=== PATIENT | male | born 1950 | race African-American/Black ===

== ENCOUNTER 2016-11-16 04:44 | Inpatient (IN) | payer MEDICAID, SELFPAY ==
[~2016-11-16] VITALS: Ht 170.2 cm; Wt 72.6 kg
[~2016-11-16 04:44] MED LIST: AZITHROMYCIN250 MG ORAL; NORCO 5-325 TA1 EACH ORAL
[2016-11-16] MEDS ORDERED: NKM (04:58)
--- NOTE | 2016-11-16 05:04 | Emergency Room Report ---
History of Present Illness General Chief Complaint: Chest Pain Source: Patient Present Illness HPI This is a 66-year-old male who is a smoker. He has no past medical history. He presents with right-sided chest pain. He woke up with it. Worse with a deep breath. Pain is mostly to the right side the back. No fever chills but no nausea no vomiting. Similar symptom about a year ago and was told he had pneumonia. Denies any other complaint. No exertional component. Allergies: Coded Allergies: NO KNOWN DRUG ALLERGIES (Unverified Allergy, Unknown, 10/15/13) Patient History Past Medical History: see triage record, old chart reviewed Past Surgical History: other Pertinent Family History: none Social History: Reports: smoking Immunizations: other Reviewed Nursing Documentation: PMH: Agreed, PSxH: Agreed Nursing Documentation-PMH Past Medical History: No Stated History Review of Systems Eye: Denies: eye pain, blurred vision ENT: Denies: ear pain, nose congestion, throat swelling Respiratory: Reports: cough, Denies: shortness of breath Cardiovascular: Reports: chest pain, Denies: palpitations Gastrointestinal: Denies: abdominal pain, diarrhea, nausea, vomiting Musculoskeletal: Denies: back pain, joint pain Skin: Denies: rash Neurological: Denies: headache, numbness Endocrine: Denies: increased thirst, increased urine Hematologic/Lymphatic: Denies: easy bruising All Other Systems: negative except mentioned in HPI Physical Exam Vital Signs Date Time Temp Pulse Resp B/P (MAP) Pulse Ox O2 Delivery O2 Flow Rate FiO2 11/16/16 04:55 76 16 129/86 97 Room Air vital normal Sp02 EP Interpretation: reviewed, normal General Appearance: well appearing, no apparent distress, alert Head: normocephalic, atraumatic Eyes: bilateral eye PERRL, bilateral eye EOMI ENT: hearing grossly normal, normal pharynx Neck: full range of motion, supple, no meningismus Respiratory: chest non-tender, normal breath sounds, rhonchi - Right lower lobe Cardiovascular #1: regular rate, rhythm, no murmur Gastrointestinal: normal bowel sounds, non tender, no mass, no organomegaly, no bruit, non-distended Musculoskeletal: back normal, gait/station normal, normal range of motion Psychiatric: mood/affect normal Skin: warm/dry Medical Decision Making Diagnostic Impression: Primary Impression: Pneumonia Qualified Codes: J18.1 - Lobar pneumonia, unspecified organism Additional Impression: Hemoptysis ER Course Patient presents with right-sided chest pain. Is very pleuritic in nature. While he is here, he is more coughing and hemoptysis. My main concern is a neoplastic process based on his smoking history. Could also be a PE. CT scan ordered. Results pending. I will sign this patient out to Dr. Morales for final disposition. Unfortunately, as the patient was getting CT scan it stopped working. The table was not moving. He did not get CAT scan. I gave patient antibiotics and put him in for admission. Once CTs working he will get a CAT scan to rule out neoplastic process. Discussed with Dr. Chase for admission. Lab Results Impression labs normal except for elevated d-dimer EKG Diagnostic Results EKG Time: 06:27 Rate: normal Rhythm: NSR ST Segments: other - T-wave inversion laterally Rhythm Strip Diag. Results Rhythm Strip Time: 06:28 EP Interpretation: yes Rate: 68 Rhythm: NSR, no PVC's Chest X-Ray Diagnostic Results Chest X-Ray Diagnostic Results : Chest X-Ray Ordered: Yes # of Views/Limited/Complete: 1 View Indication: Chest Pain EP Interpretation: Yes Interpretation: no consolidation, no effusion, no pneumothorax, other - Right lower lobe infiltrates Impression: Other - Right lower lobe infiltrate Interpreting ER Provider: Electronically signed by Parrish Thayer MD Last Vital Signs Date Time Temp Pulse Resp B/P (MAP) Pulse Ox O2 Delivery O2 Flow Rate FiO2 11/16/16 04:59 76 16 Room Air 11/16/16 04:55 129/86 97 Status: improved Disposition: ADMITTED INPATIENT Condition: Serious PARRISH THAYER M.D. Nov 16, 2016 05:04
[2016-11-16] MEDS ORDERED: Ketorolac 30mg Inj IV ONE (05:15)
[2016-11-16 05:22] LABS: EOSINOPHILS % (AUTO) 2.1 % (0.0-3.0); LYMPHOCYTES % (AUTO) 27.5 % (20.0-45.0); MEAN CORPUSCULAR HEMOGLOBIN 27.1 PG (27.0-31.0); MEAN CORPUSCULAR VOLUME 91 FL (80-99); MEAN PLATELET VOLUME 10.6 FL (6.5-10.1); MONOCYTES % (AUTO) 11.8 % (1.0-10.0); NEUTROPHILS % (AUTO) 57.6 % (45.0-75.0); PLATELET COUNT 128 K/UL (150-450); RED CELL DISTRIBUTION WIDTH 14.4 % (11.6-14.8); WHITE BLOOD COUNT 7.7 K/UL (4.8-10.8)
[2016-11-16 05:51] LABS: ALANINE AMINOTRANSFERASE 7 U/L (3-41); ALBUMIN/GLOBULIN RATIO 1.4 (1.0-2.7); ANION GAP 10 (5-15); ASPARTATE AMINO TRANSFERASE 18 U/L (5-40); CALCIUM 9.4 mg/dL (8.6-10.2); CARBON DIOXIDE 30 mEQ/L (20-30); CHLORIDE 101 mEQ/L (98-107); CREATININE 1.4 mg/dL (0.7-1.2); GLOMERULAR FILTRATION RATE > 60 mL/min (>60); HEMOLYSIS 0; SODIUM 141 mEQ/L (135-145); TOTAL PROTEIN 7.2 g/dL (6.6-8.7)
[2016-11-16 05:54] LABS: TROPONIN I < 0.30 ng/mL (<=0.30)
[2016-11-16 06:02] LABS: CKMB 1.7 ng/mL (< 6.7)
[2016-11-16 06:13] VITALS: BP 130/91
[2016-11-16 07:10] VITALS: BP 120/86
[2016-11-16] MEDS ORDERED: LORazepam Inj 2mg/ml 1ml IV PRN (08:15)
[2016-11-16] MEDS ORDERED: DuoNeb 0.5-3(2.5)mg/3ml neb HHN PRN (08:15)
[2016-11-16] MEDS ORDERED: Morphine Sulfate 4mg/ml Inj IVP PRN (08:15)
[2016-11-16] MEDS ORDERED: Miralax 17gm pkt ORAL PRN (08:15)
--- NOTE | 2016-11-16 08:33 | Diagnostic Imaging Report ---
Indication: Chest pain Comparison: 7.514 A single view chest radiograph was obtained. Findings: Interstitial edema suspected with cardiomegaly. No definite pleural effusion seen. Impression: Interstitial edema
--- NOTE | 2016-11-16 08:49 | Infectious Diseases Prog Note ---
Assessment/Plan Problems: (1) Pneumonia Assessment & Plan: continue cefepime and vancomycin, need CT chest to rule out lung mass or abscess (2) Hemoptysis Assessment & Plan: rule out lung malignancy , needs CT chest for further eval, pulmonary is following (3) Chest pain Assessment & Plan: due to the above , rule out ACS, recommend troponin, monitor to rule out PA, and cardiac consult Subjective Allergies: Coded Allergies: NO KNOWN DRUG ALLERGIES (Unverified Allergy, Unknown, 10/15/13) Objective Vital Signs Last 24 Hour Vital Signs Date Time Temp Pulse Resp B/P (MAP) Pulse Ox O2 Delivery O2 Flow Rate FiO2 11/16/16 07:10 66 13 Room Air 11/16/16 07:10 98.7 66 13 120/86 99 Room Air 11/16/16 06:13 99.1 60 16 130/91 99 Room Air 11/16/16 04:59 76 16 Room Air 11/16/16 04:55 76 16 129/86 97 Room Air Height (Feet): 5 Height (Inches): 7.00 Weight (Pounds): 160 Laboratory Tests Test 11/16/16 05:10 11/16/16 06:45 White Blood Count 7.7 K/UL (4.8-10.8) Red Blood Count 5.40 M/UL (4.70-6.10) Hemoglobin 14.6 G/DL (14.2-18.0) Hematocrit 48.9 % (42.0-52.0) Mean Corpuscular Volume 91 FL (80-99) Mean Corpuscular Hemoglobin 27.1 PG (27.0-31.0) Mean Corpuscular Hemoglobin Concent 30.0 G/DL (32.0-36.0) L Red Cell Distribution Width 14.4 % (11.6-14.8) Platelet Count 128 K/UL (150-450) L Mean Platelet Volume 10.6 FL (6.5-10.1) H Neutrophils (%) (Auto) 57.6 % (45.0-75.0) Lymphocytes (%) (Auto) 27.5 % (20.0-45.0) Monocytes (%) (Auto) 11.8 % (1.0-10.0) H Eosinophils (%) (Auto) 2.1 % (0.0-3.0) Basophils (%) (Auto) 1.0 % (0.0-2.0) D-Dimer 3943 ng/mL (<500) H Sodium Level 141 mEQ/L (135-145) Potassium Level 4.0 mEQ/L (3.4-4.9) Chloride Level 101 mEQ/L (98-107) Carbon Dioxide Level 30 mEQ/L (20-30) Anion Gap 10 (5-15) Blood Urea Nitrogen 8 mg/dL (7-23) Creatinine 1.4 mg/dL (0.7-1.2) H Estimat Glomerular Filtration Rate > 60 mL/min (>60) Glucose Level 110 mg/dL (74-106) H Calcium Level 9.4 mg/dL (8.6-10.2) Total Bilirubin 1.0 mg/dL (0.0-1.2) Aspartate Amino Transf (AST/SGOT) 18 U/L (5-40) Alanine Aminotransferase (ALT/SGPT) 7 U/L (3-41) Alkaline Phosphatase 65 U/L (40-129) Total Creatine Kinase 70 U/L (38-174) Creatine Kinase MB 1.7 ng/mL (< 6.7) Creatine Kinase MB Relative Index 2.4 Troponin I < 0.30 ng/mL (<=0.30) Total Protein 7.2 g/dL (6.6-8.7) Albumin 4.2 g/dL (3.5-5.2) Globulin 3.0 g/dL Albumin/Globulin Ratio 1.4 (1.0-2.7) Lactic Acid Level 1.20 mmol/L (0.66-2.22) Current Medications Medications (Trade) Dose Ordered Sig/Ata Route PRN Reason Start Time Stop Time Status Last Admin Dose Admin Acetaminophen (Tylenol) 650 mg Q4H PRN ORAL FEVER 11/16/16 08:15 12/16/16 08:14 UNV Albuterol/ Ipratropium (DuoNeb 0.5-3(2.5)mg/3ml) 3 ml EVERY 4 HOURS PRN HHN Shortness of Breath 11/16/16 08:15 11/21/16 08:14 UNV Cefepime HCl 2 gm/ Dextrose 110 ml @ 220 mls/hr EVERY 12 HOURS IV 11/16/16 09:00 11/23/16 08:59 UNV Dextrose (Dextrose 50%) STAT PRN IV Hypoglycemia 11/16/16 08:15 12/16/16 08:14 UNV Lorazepam (Ativan 2mg/ml 1ml) 2 mg EVERY 2 HOURS PRN IV For Anxiety 11/16/16 08:15 11/23/16 08:14 UNV Morphine Sulfate (Morphine Sulfate) 4 mg EVERY 4 HOURS PRN IVP Severe Pain (Pain Scale 7-10) 11/16/16 08:15 11/23/16 08:14 UNV Ondansetron HCl (Zofran) 4 mg Q6H PRN IVP Nausea & Vomiting 11/16/16 08:15 12/16/16 08:14 UNV Polyethylene Glycol (Miralax) 17 gm DAILYPRN PRN ORAL Constipation 11/16/16 08:15 12/16/16 08:14 UNV Sodium Chloride 1,000 ml @ 50 mls/hr Q20H IV 11/16/16 22:50 12/16/16 22:49 UNV Vancomycin HCl 1 gm/Dextrose 275 ml @ 183.3 mls/ hr Q24H IV 11/16/16 23:00 11/21/16 22:59 UNV Herman Ta M.D. Nov 16, 2016 08:49
[2016-11-16 10:02] VITALS: BP 138/97
--- NOTE | 2016-11-16 11:24 | Diagnostic Imaging Report ---
Indication:Elevated Bun and Creatinine. Technique: Grayscale and duplex Doppler imaging of the kidneys performed. Comparison: None Findings: The size, contour, and echogenicity of both kidneys are within normal limits. There is no hydronephrosis. The IVC and urinary bladder are unremarkable. Right kidney 9.6 CM. Left kidney 10.5 CM. Prostate volume is approximately 30 cc. Impression: Negative ultrasound of the kidneys. Mild prostate hypertrophy
[2016-11-16 12:00] VITALS: BP 142/95
[2016-11-16] MEDS: Vancomycin 1 GM in D5W 275 ML IVPB SCH ×2 (12:24→23:43)
--- NOTE | 2016-11-16 12:26 | Consultation ---
History of Present Illness General Date patient seen: Nov 16, 2016 Time patient seen: 11:00 Chief Complaint: Chest Pain Referring physician: dr Chase Reason for Consultation: PNA Present Illness HPI 66-y/old male, current smoker 1 pack a day, presented with right-sided chest pain. pain located laterally and sometimes radiates to the back, worse with deep breath. denied fever, chills admits to dry cough, blood tinged sputum this am patient had similar symptom about a year ago and was told he had pneumonia Workup in ED revealed no leukocytosis VSS BUN/cerat-8/1.4 CXR + CM, interstitial edema, possible RLL infiltrate patient was admitted for further management Allergies: Coded Allergies: NO KNOWN DRUG ALLERGIES (Unverified Allergy, Unknown, 10/15/13) Medication History Scheduled Azithromycin* (Zithromax*), 250 MG ORAL DAILY No Known Medications* (NKM - No Known Medications*), 0 ., (Reported) Scheduled PRN Hydrocodone Bit/Acetaminophen 5-325* ([place] 5-325*), 1 TAB ORAL Q6H PRN for For Pain Patient History History Provided By: Patient Healthcare decision maker Resuscitation status Advanced Directive on File Past Medical/Surgical History Past Medical/Surgical History: (1) Pneumonia Review of Systems Constitutional: Reports: weakness Eye: Reports: no symptoms ENT: Reports: no symptoms Respiratory: Reports: see HPI Cardiovascular: Reports: no symptoms Gastrointestinal: Reports: no symptoms Genitourinary: Reports: no symptoms Skin: Reports: no symptoms Psychiatric: Reports: no symptoms Neurological: Reports: no symptoms Endocrine: Reports: no symptoms Hematologic/Lymphatic: Reports: no symptoms Physical Exam General Appearance: no apparent distress, alert - A/A/O x 4 Lines, tubes and drains: peripheral HEENT: normocephalic, atraumatic, anicteric, mucous membranes moist, PERRL Neck: normal alignment, supple Respiratory/Chest: lungs clear - with moderate air exchange Cardiovascular/Chest: normal rate, regular rhythm, no JVD Abdomen: non tender, soft Extremities: normal range of motion, non-tender, no calf tenderness, normal capillary refill Skin Exam: warm/dry Neurologic: no motor/sensory deficits, alert, oriented x 3, normal mood/affect Musculoskeletal: normal muscle bulk Last 24 Hour Vital Signs Date Time Temp Pulse Resp B/P (MAP) Pulse Ox O2 Delivery O2 Flow Rate FiO2 8/26/17 12:00 97.0 77 20 142/95 99 Room Air 11/16/16 10:02 97.9 67 18 138/97 94 Room Air 11/16/16 09:24 60 19 135/87 100 Room Air 11/16/16 07:10 66 13 Room Air 11/16/16 07:10 98.7 66 13 120/86 99 Room Air 11/16/16 06:13 99.1 60 16 130/91 99 Room Air 11/16/16 04:59 76 16 Room Air 11/16/16 04:55 76 16 129/86 97 Room Air Intake and Output 11/16/16 11/17/16 19:00 07:00 Intake Total 150 ml Balance 150 ml Intake Oral 0 ml IV Total 150 ml Laboratory Tests Test 11/16/16 05:10 11/16/16 06:45 White Blood Count 7.7 K/UL (4.8-10.8) Red Blood Count 5.40 M/UL (4.70-6.10) Hemoglobin 14.6 G/DL (14.2-18.0) Hematocrit 48.9 % (42.0-52.0) Mean Corpuscular Volume 91 FL (80-99) Mean Corpuscular Hemoglobin 27.1 PG (27.0-31.0) Mean Corpuscular Hemoglobin Concent 30.0 G/DL (32.0-36.0) L Red Cell Distribution Width 14.4 % (11.6-14.8) Platelet Count 128 K/UL (150-450) L Mean Platelet Volume 10.6 FL (6.5-10.1) H Neutrophils (%) (Auto) 57.6 % (45.0-75.0) Lymphocytes (%) (Auto) 27.5 % (20.0-45.0) Monocytes (%) (Auto) 11.8 % (1.0-10.0) H Eosinophils (%) (Auto) 2.1 % (0.0-3.0) Basophils (%) (Auto) 1.0 % (0.0-2.0) D-Dimer 3943 ng/mL (<500) H Sodium Level 141 mEQ/L (135-145) Potassium Level 4.0 mEQ/L (3.4-4.9) Chloride Level 101 mEQ/L (98-107) Carbon Dioxide Level 30 mEQ/L (20-30) Anion Gap 10 (5-15) Blood Urea Nitrogen 8 mg/dL (7-23) Creatinine 1.4 mg/dL (0.7-1.2) H Estimat Glomerular Filtration Rate > 60 mL/min (>60) Glucose Level 110 mg/dL (74-106) H Calcium Level 9.4 mg/dL (8.6-10.2) Total Bilirubin 1.0 mg/dL (0.0-1.2) Aspartate Amino Transf (AST/SGOT) 18 U/L (5-40) Alanine Aminotransferase (ALT/SGPT) 7 U/L (3-41) Alkaline Phosphatase 65 U/L (40-129) Total Creatine Kinase 70 U/L (38-174) Creatine Kinase MB 1.7 ng/mL (< 6.7) Creatine Kinase MB Relative Index 2.4 Troponin I < 0.30 ng/mL (<=0.30) Total Protein 7.2 g/dL (6.6-8.7) Albumin 4.2 g/dL (3.5-5.2) Globulin 3.0 g/dL Albumin/Globulin Ratio 1.4 (1.0-2.7) Lactic Acid Level 1.20 mmol/L (0.66-2.22) Height (Feet): 5 Height (Inches): 7.00 Weight (Pounds): 160 Medications Current Medications Medications (Trade) Dose Ordered Sig/Taa Route PRN Reason Start Time Stop Time Status Last Admin Dose Admin Acetaminophen (Tylenol) 650 mg Q4H PRN ORAL FEVER 11/16/16 08:15 12/16/16 08:14 Albuterol/ Ipratropium (DuoNeb 0.5-3(2.5)mg/3ml) 3 ml EVERY 4 HOURS PRN HHN Shortness of Breath 11/16/16 08:15 11/21/16 08:14 Cefepime HCl 2 gm/ Dextrose 110 ml @ 220 mls/hr Q12HR IV 11/16/16 10:30 11/23/16 10:29 Dextrose (Dextrose 50%) STAT PRN IV Hypoglycemia 11/16/16 08:15 12/16/16 08:14 Lorazepam (Ativan 2mg/ml 1ml) 2 mg EVERY 2 HOURS PRN IV For Anxiety 11/16/16 08:15 11/23/16 08:14 Morphine Sulfate (Morphine Sulfate) 4 mg EVERY 4 HOURS PRN IVP Severe Pain (Pain Scale 7-10) 11/16/16 08:15 11/23/16 08:14 Ondansetron HCl (Zofran) 4 mg Q6H PRN IVP Nausea & Vomiting 11/16/16 08:15 12/16/16 08:14 Polyethylene Glycol (Miralax) 17 gm DAILYPRN PRN ORAL Constipation 11/16/16 08:15 12/16/16 08:14 Sodium Chloride 1,000 ml @ 50 mls/hr Q20H IV 11/16/16 10:00 12/16/16 09:59 11/16/16 12:12 Vancomycin HCl (Vanco rx to dose) 1 ea DAILY PRN MISC RX TO DOSE 11/16/16 10:00 12/16/16 09:59 Vancomycin HCl 1 gm/Dextrose 275 ml @ 183.3 mls/ hr Q12H IVPB 11/16/16 11:00 11/21/16 10:59 11/16/16 12:24 Assessment/Plan Assessment/Plan ASSESSMENT pleuritic chest pain PNA hemoptysis current smoker r/o malignancy PLAN OF CARE MS floor O2 prn to keep sat above 92% pulmonary toilet empiric abx fup with cx sputum cx if able CT chest r/o malignancy a/tussive prn declined Nicotine patch 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
[2016-11-16] MEDS: Cefepime HCl 2 GM in D5W 110 ML IV SCH ×2 (13:30→21:06)
[2016-11-16 16:00] VITALS: BP 111/74
[2016-11-16] MEDS ORDERED: 1/2 NS 1000ml IV ONE (16:23)
[2016-11-16] MEDS ORDERED: Tubing IV Secondary IV ONE (16:23)
[2016-11-16 20:00] VITALS: BP 104/77
[2016-11-16] MEDS: Heparin 5000 units/ml inj SUBQ SCH (21:00)
--- NOTE | 2016-11-16 22:00 | History and Physical Report ---
DATE OF ADMISSION: 11/16/2016 TIME OF EVALUATION: At 9 a.m. CONSULTANTS: 1. Kvng Gonzalez M.D. 2. Dr. Mayo. 3. Sam Bauer M.D. CHIEF COMPLAINT: Lung pain, shortness of breath, and coughing blood. BRIEF HISTORY: This is a 66-year-old male, who lives at home, became tired over the last couple of days and slightly short of breath. This morning, he coughed up a little bit of blood, came into [facility] and diagnosed with right lower lobe pneumonia, sepsis, and hematemesis and is being admitted shortly for further treatment. Currently, calm in bed in the ER. Currently, no complaints. PAST MEDICAL HISTORY: Nothing. PAST SURGICAL HISTORY: Nothing. MEDICATIONS: Vancomycin, cefepime, albuterol, morphine, MiraLAX, Zofran, Ativan, dextrose, levofloxacin, and ketorolac. ALLERGIES: Denies. SOCIAL HISTORY: Positive smoke. Positive alcohol. No intravenous drug abuse. FAMILY HISTORY: Noncontributory. REVIEW OF SYSTEMS: No chest pain. Slight shortness of breath. Slight nausea. No vomiting or diarrhea. PHYSICAL EXAMINATION: GENERAL: Calm in bed, alert and oriented x3, in no acute distress. VITAL SIGNS: Temperature 98 degrees, pulse 66, respirations 13, and blood pressure 120/86. CARDIOVASCULAR: No murmur. LUNGS: Distant and clear. ABDOMEN: Bowel sounds are positive. Soft, nontender, and nondistended. EXTREMITIES: No cyanosis, clubbing, or edema. LABORATORY DATA: Platelets 128,000, otherwise CBC is normal. Creatinine 1.4 and glucose 110, otherwise CMP is normal. Troponin is less than 0.3. D-dimer is 3943. ASSESSMENT: 1. Right lower lobe pneumonia. 2. Sepsis. 3. Hematemesis. PLAN: 1. Continue premedications. 2. O2 and pulmonary treatment. 3. Antibiotics per Infectious Diseases. 4. OT, PT, and dietary evaluation. 5. CBC and BMP in the morning. 6. Resume home medications. 7. Dr. Gonzalez, Dr. Mayo, and Dr. Bauer to consult. Carlos Chase D.O. DR: RAFFI JOB#: [id number] CC:
[2016-11-17] VITALS: BP 115/76
[2016-11-17 04:00] VITALS: BP 97/74
--- NOTE | 2016-11-17 06:49 | General Progress Note ---
Assessment/Plan Problem List: (1) Pneumonia ICD Codes: J18.9 - Pneumonia, unspecified organism SNOMED: 814386651 (2) Hemoptysis ICD Codes: R04.2 - Hemoptysis SNOMED: 31616475 Status: stable, progressing, tolerating diet Assessment/Plan o2 pulm tx abx ot pt diet cbc bmp am Subjective Constitutional: Reports: weakness Allergies: Coded Allergies: NO KNOWN DRUG ALLERGIES (Unverified Allergy, Unknown, 10/15/13) All Systems: reviewed and negative except above Subjective sleepy calm in bed Objective Last 24 Hour Vital Signs Date Time Temp Pulse Resp B/P (MAP) Pulse Ox O2 Delivery O2 Flow Rate FiO2 11/17/16 04:00 99.0 70 19 97/74 94 Room Air 11/17/16 00:00 99.0 96 19 115/76 96 Room Air 11/16/16 20:00 99.1 74 18 104/77 97 Room Air 11/16/16 16:00 98.2 61 17 111/74 94 Room Air 11/16/16 12:00 97.0 77 20 142/95 99 Room Air 11/16/16 10:02 97.9 67 18 138/97 94 Room Air 11/16/16 09:24 60 19 135/87 100 Room Air 11/16/16 07:10 66 13 Room Air 11/16/16 07:10 98.7 66 13 120/86 99 Room Air Height (Feet): 5 Height (Inches): 7.00 Weight (Pounds): 160 General Appearance: lethargic EENT: normal ENT inspection Neck: normal alignment Cardiovascular: normal peripheral pulses, normal rate, regular rhythm Respiratory/Chest: chest wall non-tender, lungs clear, decreased breath sounds Abdomen: normal bowel sounds, non tender, soft Extremities: normal inspection Edema: no edema noted Arm (L), no edema noted Arm (R), no edema noted Leg (L), no edema noted Leg (R), no edema noted Pedal (L), no edema noted Pedal (R), no edema noted Generalized Neurologic: motor weakness Skin: normal pigmentation, warm/dry DARRYL DAMON Nov 17, 2016 06:49
[2016-11-17 07:38] LABS: BASOPHILS % (AUTO) 0.6 % (0.0-2.0); EOSINOPHILS % (AUTO) 1.3 % (0.0-3.0); MEAN CORPUSCULAR HGB CONC 29.9 G/DL (32.0-36.0); MEAN CORPUSCULAR VOLUME 91 FL (80-99); MEAN PLATELET VOLUME 10.7 FL (6.5-10.1); MONOCYTES % (AUTO) 12.8 % (1.0-10.0); NEUTROPHILS % (AUTO) 71.3 % (45.0-75.0); PLATELET COUNT 122 K/UL (150-450); RED BLOOD COUNT 4.81 M/UL (4.70-6.10); RED CELL DISTRIBUTION WIDTH 14.3 % (11.6-14.8); WHITE BLOOD COUNT 7.7 K/UL (4.8-10.8)
[2016-11-17 08:00] VITALS: BP 107/79
[2016-11-17 08:09] LABS: ANION GAP 13 (5-15); CALCIUM 8.8 mg/dL (8.6-10.2); CARBON DIOXIDE 26 mEQ/L (20-30); CHLORIDE 101 mEQ/L (98-107); CREATININE 1.4 mg/dL (0.7-1.2); GLOMERULAR FILTRATION RATE > 60 mL/min (>60); HEMOLYSIS 4; SODIUM 140 mEQ/L (135-145)
[2016-11-17 08:13] LABS: ANION GAP 14 (5-15); CALCIUM 8.7 mg/dL (8.6-10.2); CARBON DIOXIDE 28 mEQ/L (20-30); CHLORIDE 99 mEQ/L (98-107); CREATININE 1.3 mg/dL (0.7-1.2); GLOMERULAR FILTRATION RATE > 60 mL/min (>60); HEMOLYSIS 6; PHOSPHORUS 3.1 mg/dL (2.5-4.8); POTASSIUM 4.2 mEQ/L (3.4-4.9); SODIUM 141 mEQ/L (135-145)
[2016-11-17] MEDS: Cefepime HCl 2 GM in D5W 110 ML IV SCH ×2 (08:17→20:22)
[2016-11-17] MEDS: Heparin 5000 units/ml inj SUBQ SCH ×2 (09:00→20:02)
--- NOTE | 2016-11-17 09:00 | Consultation ---
DATE OF CONSULTATION: INFECTIOUS DISEASES CONSULTATION REQUESTING PHYSICIAN: Carlos Chase D.O. REASON FOR CONSULTATION: Pneumonia, recommendation for antibiotics treatment. HISTORY OF PRESENT ILLNESS: The patient is a 66-year-old male with past medical history of pneumonia mainly and tobacco abuse who has been smoker for almost 30 years, one packet every four days presented to the hospital with right side chest pain and muscle spasm associated with productive cough and sometimes tinged with blood. The patient had mild shortness of breath. His pain mainly localized on the right side of his chest and back. He has been coughing dry at the beginning, but today he saw some blood in his sputum so he was sent to the emergency room for evaluation and management. The patient had no fever or chills. No recent travel or sick contacts. He never had any blood clot in the past. Denied any history of TB or any TB exposure before. The patient had similar symptoms two years ago and he had pneumonia and he was treated for it. Attempt to get CT scan was not successful. The patient was admitted to the hospital, started on IV antibiotics, and I was consulted by the primary provider for antibiotics treatment and further management. PAST MEDICAL HISTORY: Significant for pneumonia and tobacco abuse. PAST SURGICAL HISTORY: Negative. MEDICATIONS: The patient currently on vancomycin and cefepime. ALLERGIES: He has no known drug allergy. SOCIAL HISTORY: He smoked one packet every four days. Denies using any alcohol or drugs. FAMILY HISTORY: Negative. REVIEW OF SYSTEMS: A 12-point of system reviewed were all negative. PHYSICAL EXAMINATION: GENERAL: A middle-aged male, up in bed, awake, alert, comfortable, not in distress. VITAL SIGNS: Temperature 97 degrees, pulse 77, respirations 20, blood pressure 142/95, and saturation 99% on room air. HEENT: Normocephalic and atraumatic. Pupils are reactive to light. NECK: Supple. CARDIOVASCULAR: Regular rate and rhythm. LUNGS: He had diminished breathing sound at the bases with crackles. No wheezing or rhonchi. ABDOMEN: Soft, nontender, and nondistended. Positive bowel sounds. No hepatosplenomegaly or ascites. EXTREMITIES: No edema or cyanosis. LABORATORY DATA: Laboratory showed BUN of 8 and creatinine of 1.4. White count of 7.7, hemoglobin of 14.6, and platelet count of 128,000. RADIOLOGY: Chest x-ray on admission showed interstitial edema. Ultrasound of the kidneys showed negative result. ASSESSMENT AND RECOMMENDATIONS: 1. Pneumonia, community-acquired. Continue vancomycin and cefepime. Need CT scan of the chest to rule out lung mass or pulmonary embolism. Customer Advocate is following. 2. Hemoptysis, rule out lung malignancy, being smoker for many years. Need CT of chest to rule out lung mass or tumor. 3. Chest pain, suspect due to the above, rule out acute coronary syndrome. Recommend troponin monitor and to rule out myocardial infarction. Consult Cardiology as needed. Herman Ta M.D. DR: DEBRA JOB#: [id number] CC:
--- NOTE | 2016-11-17 09:15 | Consultation ---
DATE OF CONSULTATION: 11/16/2016 GASTROENTEROLOGY CONSULTATION CHIEF COMPLAINT: I was asked to see this patient for evaluation of hemoptysis. HISTORY OF PRESENT ILLNESS: The patient is a 66-year-old man, who came into the emergency room due to hemoptysis. He also had some right-sided flank pain. He feels better now however and has no further pain. In the emergency room, he mentioned right-sided chest pain, but on my examination, he pointed to his right flank. He has never had an endoscopy or colonoscopy in the past. PAST MEDICAL HISTORY: Otherwise negative. MEDICATIONS: None. ALLERGIES: None. SOCIAL HISTORY: The patient does report smoking. FAMILY HISTORY: Noncontributory. REVIEW OF SYSTEMS: Otherwise, negative. PHYSICAL EXAMINATION: HEENT: Normocephalic and atraumatic. NECK: Supple. CHEST: Clear to auscultation. CARDIOVASCULAR: Revealed regular rate. ABDOMEN: Soft. EXTREMITIES: Revealed no edema. LABORATORY DATA: Noted. ASSESSMENT: This patient presents with a chief complaint of hemoptysis. He had some right-sided torso pain, which has now improved. The patient should be seen by the Pulmonary services for evaluation of his hemoptysis. I have advised the patient that he should undergo a screening colonoscopy, which can be done as an outpatient on an elective basis. RECOMMENDATIONS: Per above discussion and per orders written in the chart. Thank you for asking me to participate in the care of this patient. Jayesh Koch M.D. DR: RAYNA JOB#: [id number] CC:
[2016-11-17] MEDS: Vancomycin 1 GM in D5W 275 ML IVPB SCH ×3 (11:17→22:26)
[2016-11-17 12:00] VITALS: BP 122/88
--- NOTE | 2016-11-17 14:50 | Pulmonology Progress Note ---
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 No actual report was upload in computer ; neither me, nor my supervising physciian did not receive any call from radiology regarding this alarming finding. , In fact, still no actual report in computer this am on 11/18 at 0800 am patient started on heparin drip. Heme eval consulted, Repeated D dimer elevated. Awaiting final report of CTA. VQ scan pending as ordered by my supervising physician . patient clinical exam on 11/17/ in am ( during my coverage frp dr Gonzalez) was unremarkable: no tachycardia, no tachypnea, no chest pain, no anxiety, no respiratory distress, no hemoptysis. case discussed and evaluated by supervising physician Subjective Allergies: Coded Allergies: NO KNOWN DRUG ALLERGIES (Unverified Allergy, Unknown, 10/15/13) Subjective still right sided intermittent ( with deep breath) lateral chest pain no SOB, no fevers, no leukocytosis no further episodes of hemoptysis Objective Last 24 Hour Vital Signs Date Time Temp Pulse Resp B/P (MAP) Pulse Ox O2 Delivery O2 Flow Rate FiO2 11/17/16 12:00 97.2 83 20 122/88 95 Room Air 11/17/16 08:00 98.2 77 20 107/79 90 Room Air 11/17/16 07:04 77 18 Room Air 11/17/16 04:00 99.0 70 19 97/74 94 Room Air 11/17/16 00:00 99.0 96 19 115/76 96 Room Air 11/16/16 20:00 99.1 74 18 104/77 97 Room Air 11/16/16 16:00 98.2 61 17 111/74 94 Room Air Objective General Appearance: no apparent distress, alert - A/A/O x 4 Lines, tubes and drains: peripheral HEENT: normocephalic, atraumatic, anicteric, mucous membranes moist, PERRL Neck: normal alignment, supple Respiratory/Chest: lungs clear - with moderate air exchange Cardiovascular/Chest: normal rate, regular rhythm, no JVD Abdomen: non tender, soft Extremities: normal range of motion, non-tender, no calf tenderness, normal capillary refill Skin Exam: warm/dry Neurologic: no motor/sensory deficits, alert, oriented x 3, normal mood/affect Musculoskeletal: normal muscle bulk Laboratory Tests 11/17/16 05:15: White Blood Count 7.7, Red Blood Count 4.81, Hemoglobin 13.0L, Hematocrit 43.5, Mean Corpuscular Volume 91, Mean Corpuscular Hemoglobin 27.0, Mean Corpuscular Hemoglobin Concent 29.9L, Red Cell Distribution Width 14.3, Platelet Count 122L , Mean Platelet Volume 10.7H, Neutrophils (%) (Auto) 71.3, Lymphocytes (%) (Auto ) 14.0L, Monocytes (%) (Auto) 12.8H, Eosinophils (%) (Auto) 1.3, Basophils (%) ( Auto) 0.6, Sodium Level 140, Potassium Level 4.0, Chloride Level 101, Carbon Dioxide Level 26, Anion Gap 13, Blood Urea Nitrogen 11, Creatinine 1.4H, Estimat Glomerular Filtration Rate > 60, Glucose Level 86, Calcium Level 8.8, Phosphorus Level 3.1, Albumin 3.4L 11/17/16 10:00: Vancomycin Level Trough 17.8H Current Medications Medications (Trade) Dose Ordered Sig/Ata Route PRN Reason Start Time Stop Time Status Last Admin Dose Admin Acetaminophen (Tylenol) 650 mg Q4H PRN ORAL FEVER 11/16/16 08:15 12/16/16 08:14 Albuterol/ Ipratropium (DuoNeb 0.5-3(2.5)mg/3ml) 3 ml EVERY 4 HOURS PRN HHN Shortness of Breath 11/16/16 08:15 11/21/16 08:14 Cefepime HCl 2 gm/ Dextrose 110 ml @ 220 mls/hr Q12HR IV 11/16/16 10:30 11/23/16 10:29 11/17/16 08:17 Dextrose (Dextrose 50%) STAT PRN IV Hypoglycemia 11/16/16 08:15 12/16/16 08:14 Heparin Sodium (Porcine) (Heparin 5000 units/ml) 5,000 units EVERY 12 HOURS SUBQ 11/16/16 21:00 12/16/16 20:59 Lorazepam (Ativan 2mg/ml 1ml) 2 mg EVERY 2 HOURS PRN IV For Anxiety 11/16/16 08:15 11/23/16 08:14 Morphine Sulfate (Morphine Sulfate) 4 mg EVERY 4 HOURS PRN IVP Severe Pain (Pain Scale 7-10) 11/16/16 08:15 11/23/16 08:14 11/16/16 18:10 Ondansetron HCl (Zofran) 4 mg Q6H PRN IVP Nausea & Vomiting 11/16/16 08:15 12/16/16 08:14 Polyethylene Glycol (Miralax) 17 gm DAILYPRN PRN ORAL Constipation 11/16/16 08:15 12/16/16 08:14 Sodium Chloride 1,000 ml @ 50 mls/hr Q20H IV 11/16/16 10:00 12/16/16 09:59 11/17/16 11:17 Vancomycin HCl (Vanco rx to dose) 1 ea DAILY PRN MISC RX TO DOSE 11/16/16 10:00 12/16/16 09:59 Vancomycin HCl 1 gm/Dextrose 275 ml @ 183.3 mls/ hr Q12H IVPB 11/16/16 11:00 11/21/16 10:59 11/17/16 11:17 Constance West NP ([facility]te[facility]) Nov 17, 2016 14:50
--- NOTE | 2016-11-17 15:19 | General Progress Note ---
Assessment/Plan Assessment/Plan Assessment cp PNA/Hemoptysis Recommendations Pulmonary w/u follow labs and symptoms Subjective Allergies: Coded Allergies: NO KNOWN DRUG ALLERGIES (Unverified Allergy, Unknown, 10/15/13) Subjective Feels OK no abd c/o Objective Last 24 Hour Vital Signs Date Time Temp Pulse Resp B/P (MAP) Pulse Ox O2 Delivery O2 Flow Rate FiO2 11/17/16 12:00 97.2 83 20 122/88 95 Room Air 11/17/16 08:00 98.2 77 20 107/79 90 Room Air 11/17/16 07:04 77 18 Room Air 11/17/16 04:00 99.0 70 19 97/74 94 Room Air 11/17/16 00:00 99.0 96 19 115/76 96 Room Air 11/16/16 20:00 99.1 74 18 104/77 97 Room Air 11/16/16 16:00 98.2 61 17 111/74 94 Room Air Laboratory Tests 11/17/16 05:15: White Blood Count 7.7, Red Blood Count 4.81, Hemoglobin 13.0L, Hematocrit 43.5, Mean Corpuscular Volume 91, Mean Corpuscular Hemoglobin 27.0, Mean Corpuscular Hemoglobin Concent 29.9L, Red Cell Distribution Width 14.3, Platelet Count 122L , Mean Platelet Volume 10.7H, Neutrophils (%) (Auto) 71.3, Lymphocytes (%) (Auto ) 14.0L, Monocytes (%) (Auto) 12.8H, Eosinophils (%) (Auto) 1.3, Basophils (%) ( Auto) 0.6, Sodium Level 140, Potassium Level 4.0, Chloride Level 101, Carbon Dioxide Level 26, Anion Gap 13, Blood Urea Nitrogen 11, Creatinine 1.4H, Estimat Glomerular Filtration Rate > 60, Glucose Level 86, Calcium Level 8.8, Phosphorus Level 3.1, Albumin 3.4L 11/17/16 10:00: Vancomycin Level Trough 17.8H Height (Feet): 5 Height (Inches): 7.00 Weight (Pounds): 160 Objective WDWN AA man NCAT supple CTA RRR soft NT ND no edema nonfocal JULIAN FUENTES Nov 17, 2016 15:19
[2016-11-17 16:00] VITALS: BP 135/95
[2016-11-17] MEDS ORDERED: 1/2 NS 1000ml IV ONE (18:19)
[2016-11-17] MEDS ORDERED: LORazepam Inj 2mg/ml 1ml IV PRN (20:00)
[2016-11-17 20:55] LABS: AMMONIA 18 umol/L (16-60)
[2016-11-17] MEDS ORDERED: Morphine Sulfate 4mg/ml Inj IVP PRN (21:00)
[2016-11-17] MEDS ORDERED: DuoNeb 0.5-3(2.5)mg/3ml neb HHN PRN (21:00)
[2016-11-17 21:25] VITALS: BP 133/93
[2016-11-18 04:00] VITALS: BP 131/81
--- NOTE | 2016-11-18 05:00 | Consultation ---
DATE OF CONSULTATION: 11/17/2016 HEMATOLOGY/ONCOLOGYCONSULTATION CONSULTING PHYSICIAN: Hipolito Johns M.D. REQUESTING PHYSICIAN: Carlos Chase M.D. ADMITTING PHYSICIAN: Carlos Chase M.D. REASON FOR CONSULTATION: Anemia and hemoptysis. CURRENT COMPLAINT AND HISTORY OF PRESENT ILLNESS: Dear Dr. Carlos Chaes, Today, I had an opportunity to see one of your patients, Graham Beard, who as you well aware is a 66 years old delightful gentleman, who lives at home, who came to [facility] with complaint of pleuritic chest pain, shortness of breath, and hemoptysis. The patient did have that episode one year ago. He was diagnosed one year ago at [facility] with pneumonia and sepsis. The patient felt extreme weakness, shortness of breath, as well as hemoptysis. During evaluation, it was found that the patient developed some anemia. My service was called to handle the issue of hemoptysis, anemia, and cytopenia. PAST MEDICAL HISTORY: 1. History of pneumonia. 2. History of hemoptysis. 3. History of smoking. 4. History of alcohol abuse. MEDICATIONS: 1. Vancomycin. 2. Cefepime. 3. Albuterol. 4. Morphine. 5. MiraLax. 6. Zofran. 7. Ativan. 8. Dextrose. 9. Levofloxacin. 10. Ketorolac. ALLERGIES: No known drug allergies. FAMILY HISTORY: Noncontributory. SOCIAL HISTORY: 1. History of smoking. 2. History of alcohol abuse. 3. No history of illicit drug use. REVIEW OF SYSTEMS: General: The patient is not in any significant distress, but was chronically ill. Respiratory: Mild shortness of breath on exertion. Gastrointestinal: The patient claims constipation. Neuromuscular: The patient claims muscle aches. PHYSICAL EXAMINATION: VITAL SIGNS: T-max is 97 degrees, respiratory rate 20, heart rate 80, and blood pressure 130/80. HEENT: Head is normocephalic and atraumatic. NECK: Supple. No carotid enlargement. No lymphadenopathy. LUNGS: Decreased breath sounds bilaterally with a few rhonchi in the base. HEART: S1 and S2 are regular. ABDOMEN: Soft and benign. No organomegaly present. Bowel sounds are present. EXTREMITIES: No cyanosis, clubbing, or edema. LABORATORY DATA: WBC is 7.7, hemoglobin 13.0, hematocrit 43.5, and platelets 122,000. Coagulation shows D-dimer 3943. Chemistry showed creatinine 1.4. IMPRESSION: 1. Thrombocytopenia, multifactorial. 2. Hemoptysis, unknown origin. 3. Interstitial edema . 4. Increased D-dimer, rule out deep venous thrombosis. 5. Pulmonary emboli. 6. Right lower lobe pneumonia. 7. Hemoptysis. 8. History of smoking. 9. Chronic obstructive pulmonary disease. 10. History of alcohol abuse. 11. Nicotine dependence. 12. Acute/chronic renal insufficiency. 13. Pleuritic chest pain. 14. Failure to thrive. RECOMMENDATIONS: 1. Watch count. 2. Watch coagulopathy. 3. Packed red blood cell transfusion, p.r.n. based. 4. Platelet transfusion, p.r.n. based. 5. Check tumor markers. 6. Venous Doppler of bilateral lower extremity to rule out deep venous thrombosis. 7. Pulmonary evaluation. 8. Antibiotic IV. 9. ID followup. 10. CT chest to rule out malignancy. 11. Skin care. 12. Nutrition. 13. Close followup. Dear Dr. Carlos Chase I greatly appreciate the opportunity to participate in the care in one of your patients. It is a privilege to me to be on this interesting and challenging case. Hipolito Johns MD DR: DOC/lin JOB#: [id number] CC:
[2016-11-18 05:07] LABS: BASOPHILS % (AUTO) 1.1 % (0.0-2.0); EOSINOPHILS % (AUTO) 0.3 % (0.0-3.0); LYMPHOCYTES % (AUTO) 18.4 % (20.0-45.0); MEAN CORPUSCULAR HEMOGLOBIN 27.8 PG (27.0-31.0); MEAN CORPUSCULAR VOLUME 90 FL (80-99); MEAN PLATELET VOLUME 12.8 FL (6.5-10.1); MONOCYTES % (AUTO) 13.5 % (1.0-10.0); NEUTROPHILS % (AUTO) 66.7 % (45.0-75.0); PLATELET COUNT 118 K/UL (150-450); RED BLOOD COUNT 4.31 M/UL (4.70-6.10); RED CELL DISTRIBUTION WIDTH 14.4 % (11.6-14.8); WHITE BLOOD COUNT 9.5 K/UL (4.8-10.8)
[2016-11-18 05:30] LABS: ANION GAP 15 (5-15); CALCIUM 8.8 mg/dL (8.6-10.2); CARBON DIOXIDE 23 mEQ/L (20-30); CHLORIDE 101 mEQ/L (98-107); CREATININE 1.3 mg/dL (0.7-1.2); GLOMERULAR FILTRATION RATE > 60 mL/min (>60); HEMOLYSIS 0; POTASSIUM 3.5 mEQ/L (3.4-4.9); SODIUM 139 mEQ/L (135-145)
[2016-11-18 08:00] VITALS: BP 131/75
[2016-11-18] MEDS ORDERED: Miralax 17gm pkt ORAL PRN ×2 (08:15→19:00)
[2016-11-18] MEDS: Heparin 5000 units/ml inj SUBQ SCH (09:09)
[2016-11-18] MEDS: Cefepime HCl 2 GM in D5W 110 ML IV SCH ×3 (09:10→20:54)
--- NOTE | 2016-11-18 10:02 | Diagnostic Imaging Report ---
Indication: Chest pain Technique: Continuous helical transaxial imaging of the chest was obtained from the thoracic inlet to the upper abdomen during rapid intravenous contrast administration. Arterial phase of enhancement obtained. Coronal 2-D reformats were also obtained and maximum intensity projection images in multiple planes. Study obtained in a Siemens sensation [address] Total Dose length Product (DLP): [address] Dose Index Volume (CTDIvol): 18.9, 12.6x2, 0.17 mGy Comparison: None Findings: Small filling defects are demonstrated within branches of the right upper and lower lung consistent with pulmonary bleb. Ill-defined groundglass/airspace disease noted in the right lower lobe, nonspecific in nature. This could be infarct or pneumonia. Partial right middle lobe and posterior basilar atelectasis and a small right pleural effusion also demonstrated. The aorta shows mural calcification. 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 The thrombosed dissection does not appear to involve the visualized major branches such as a celiac artery or SMA although there is a mural thrombus and calcification at the origins of these vessels including the right renal artery which may be narrowed. This is not well studied on the current study. There is an aberrant right subclavian artery that appears occluded at its origin. The right subclavian artery more distally appears opacified and reconstitutes via collaterals. Impression: Positive study for pulmonary embolus as described above. Thrombosed aberrant right proximal subclavian artery with reconstitution more distally via collaterals. 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 Right lower lobe infiltrate versus infarct. Small right pleural effusion. Posterior basilar atelectasis. Dr. Moss has communicated the preliminary results to the Emergency Department. There are no significant discrepancies. The CT scanner at [facility] is accredited by the [employer] and the scans are performed using dose optimization techniques as appropriate to a performed exam including Automatic Exposure control.
--- NOTE | 2016-11-18 11:18 | Diagnostic Imaging Report ---
APPROVED REPORT CPT Code: 75432 Present Symptoms Lower Extremity Pain: Bilateral BILATERAL: Imaging reveals a patent deep venous system bilaterally. There is no evidence of thrombus within the femoral, popliteal or tibial segments. The greater saphenous veins are also within normal limits. Doppler indicates normal spontaneous flow within these segments.
--- NOTE | 2016-11-18 11:50 | Pulmonology Progress Note ---
Assessment/Plan Problems: (1) Pulmonary embolism (2) Pleuritic chest pain (3) Aortic dissection Assessment/Plan check echo might have pulmonary infarct no sing or symptoms of pneumonia will start anticoagulation, ( Hem an vascular agreed), hemoptysis stopped needs w/u for occult malignancy. PSA pending Subjective ROS Limited/Unobtainable: No Constitutional: Reports: no symptoms HEENT: Repors: no symptoms Respiratory: Reports: no symptoms Cardiovascular: Reports: no symptoms Allergies: Coded Allergies: NO KNOWN DRUG ALLERGIES (Unverified Allergy, Unknown, 10/15/13) Objective Last 24 Hour Vital Signs Date Time Temp Pulse Resp B/P (MAP) Pulse Ox O2 Delivery O2 Flow Rate FiO2 11/18/16 09:44 61 11/18/16 08:00 99.9 73 18 131/75 94 Room Air 11/18/16 08:00 73 11/18/16 04:00 98.1 69 20 131/81 95 Room Air 11/18/16 04:00 73 11/17/16 21:44 75 11/17/16 21:25 99.8 74 20 133/93 94 Room Air 11/17/16 20:15 70 18 Room Air 11/17/16 16:00 97.5 76 20 135/95 95 Room Air 11/17/16 12:00 97.2 83 20 122/88 95 Room Air Intake and Output 11/18/16 11/19/16 19:00 07:00 Intake Total 390 ml Balance 390 ml Intake Oral 180 ml IV Total 210 ml Objective right chest pain better, no more hemoptysis General Appearance: WD/WN HEENT: normocephalic, atraumatic Respiratory/Chest: chest wall non-tender, lungs clear Cardiovascular: normal peripheral pulses, normal rate Abdomen: normal bowel sounds, soft, non tender Extremities: no cyanosis Skin: no lesions Microbiology Date/Time Source Procedure Growth Status 11/16/16 06:45 Blood Blood Culture - Preliminary NO GROWTH AFTER 24 HOURS Resulted 11/16/16 06:45 Blood Blood Culture - Preliminary NO GROWTH AFTER 24 HOURS Resulted Laboratory Tests 11/17/16 20:05: D-Dimer > 9000H, Ammonia 18, Carcinoembryonic Antigen 3.1H, CA 19-9 Antigen 7.56 , Free Prostate Specific Antigen [Pending], Percent Free Prostate Specific Ag [ Pending], Prostate Specific Antigen Total [Pending], HIV (1&2) Antibody Rapid Negative 11/18/16 03:30: White Blood Count 9.5, Red Blood Count 4.31L, Hemoglobin 12.0L, Hematocrit 38.6L , Mean Corpuscular Volume 90, Mean Corpuscular Hemoglobin 27.8, Mean Corpuscular Hemoglobin Concent 31.0L, Red Cell Distribution Width 14.4, Platelet Count 118L, Mean Platelet Volume 12.8H, Neutrophils (%) (Auto) 66.7, Lymphocytes (%) (Auto) 18.4L, Monocytes (%) (Auto) 13.5H, Eosinophils (%) (Auto ) 0.3, Basophils (%) (Auto) 1.1, Sodium Level 139, Potassium Level 3.5, Chloride Level 101, Carbon Dioxide Level 23, Anion Gap 15, Blood Urea Nitrogen 11, Creatinine 1.3H, Estimat Glomerular Filtration Rate > 60, Glucose Level 87, Calcium Level 8.8 Current Medications Medications (Trade) Dose Ordered Sig/Ata Route PRN Reason Start Time Stop Time Status Last Admin Dose Admin Acetaminophen (Tylenol) 650 mg Q4H PRN ORAL FEVER 11/17/16 20:15 12/16/16 08:14 Albuterol/ Ipratropium (DuoNeb 0.5-3(2.5)mg/3ml) 3 ml EVERY 4 HOURS PRN HHN Shortness of Breath 11/17/16 21:00 11/21/16 08:14 Cefepime HCl 2 gm/ Dextrose 110 ml @ 220 mls/hr Q12HR IV 11/17/16 21:00 11/23/16 10:29 11/18/16 09:10 Dextrose (Dextrose 50%) STAT PRN IV Hypoglycemia 11/18/16 08:15 12/16/16 08:14 Heparin Sodium (Porcine) (Heparin 5000 units/ml) 5,000 units EVERY 12 HOURS SUBQ 11/17/16 21:00 12/16/16 20:59 11/18/16 09:09 Lorazepam (Ativan 2mg/ml 1ml) 2 mg EVERY 2 HOURS PRN IV For Anxiety 11/17/16 20:00 11/23/16 08:14 Morphine Sulfate (Morphine Sulfate) 4 mg EVERY 4 HOURS PRN IVP Severe Pain (Pain Scale 7-10) 11/17/16 21:00 11/23/16 08:14 Ondansetron HCl (Zofran) 4 mg Q6H PRN IVP Nausea & Vomiting 11/17/16 20:15 12/16/16 08:14 Polyethylene Glycol (Miralax) 17 gm DAILYPRN PRN ORAL Constipation 11/18/16 08:15 12/16/16 08:14 Sodium Chloride 1,000 ml @ 50 mls/hr Q20H IV 11/17/16 18:30 12/16/16 09:59 11/17/16 18:30 Vancomycin HCl (Vanco rx to dose) 1 ea DAILY PRN MISC RX TO DOSE 11/18/16 09:00 12/16/16 09:59 Vancomycin HCl 1 gm/Dextrose 275 ml @ 183.3 mls/ hr Q12H IVPB 11/17/16 23:00 11/21/16 10:59 11/17/16 22:26 VERONICA CHEUNG Nov 18, 2016 11:50
[2016-11-18 12:00] VITALS: BP 139/84
[2016-11-18] MEDS ORDERED: Heparin 25,000u/D5W 500ml 500 ML IV SCH (12:00)
[2016-11-18] MEDS: Vancomycin 1 GM in D5W 275 ML IVPB SCH (12:31)
--- NOTE | 2016-11-18 13:12 | Diagnostic Imaging Report ---
Indication: Positive pulmonary embolus by CTA 11/17/16. Chest pain Technique: A ventilation/perfusion scan was performed. Ventilation was performed utilizing 40 mCi of Technetium 99m-DTPA. Perfusion was performed with 6.1 mCi of technetium 99m-MAA injected intravenously. Multiple side by side projections obtained. Findings: Perfusion and ventilation to the right lung is heterogeneously diminished. There is considerable infiltrate involving the right lung especially in the right lower lobe. This was described on the CTA done previously. Impression: By PIOPED criteria the current VQ scan is indeterminate based on the presence of lobar infiltrate. However CTA results supersede this. CTA performed 11/17/16 showed unequivocal evidence of pulmonary embolus with multiple filling defects involving branches of the right pulmonary artery.
[2016-11-18 13:34] LABS: BASOPHILS % (AUTO) 1.2 % (0.0-2.0); EOSINOPHILS % (AUTO) 0.5 % (0.0-3.0); LYMPHOCYTES % (AUTO) 15.2 % (20.0-45.0); MEAN CORPUSCULAR HEMOGLOBIN 26.7 PG (27.0-31.0); MEAN CORPUSCULAR HGB CONC 29.5 G/DL (32.0-36.0); MEAN CORPUSCULAR VOLUME 90 FL (80-99); MONOCYTES % (AUTO) 12.4 % (1.0-10.0); NEUTROPHILS % (AUTO) 70.7 % (45.0-75.0); PLATELET COUNT 144 K/UL (150-450); RED BLOOD COUNT 5.24 M/UL (4.70-6.10); RED CELL DISTRIBUTION WIDTH 14.4 % (11.6-14.8); WHITE BLOOD COUNT 9.2 K/UL (4.8-10.8)
[2016-11-18 13:50] LABS: URIC ACID 6.1 mg/dL (3.0-7.5)
[2016-11-18] MEDS ORDERED: Heparin 5000 units/ml inj IV ONE (14:05)
--- NOTE | 2016-11-18 14:24 | General Progress Note ---
Assessment/Plan Problem List: (1) Pneumonia ICD Codes: J18.9 - Pneumonia, unspecified organism SNOMED: 982701020 (2) Hemoptysis ICD Codes: R04.2 - Hemoptysis SNOMED: 46652997 Status: stable, progressing, tolerating diet Assessment/Plan o2 pulm tx abx ot pt diet cbc bmp am Subjective Constitutional: Reports: weakness Allergies: Coded Allergies: NO KNOWN DRUG ALLERGIES (Unverified Allergy, Unknown, 10/15/13) All Systems: reviewed and negative except above Subjective sleepy calm in bed Objective Last 24 Hour Vital Signs Date Time Temp Pulse Resp B/P (MAP) Pulse Ox O2 Delivery O2 Flow Rate FiO2 11/18/16 12:00 98.5 64 18 139/84 98 Room Air 11/18/16 09:44 61 11/18/16 08:00 99.9 73 18 131/75 94 Room Air 11/18/16 08:00 73 11/18/16 04:00 98.1 69 20 131/81 95 Room Air 11/18/16 04:00 73 11/17/16 21:44 75 11/17/16 21:25 99.8 74 20 133/93 94 Room Air 11/17/16 20:15 70 18 Room Air 11/17/16 16:00 97.5 76 20 135/95 95 Room Air Intake and Output 11/18/16 11/19/16 19:00 07:00 Intake Total 390 ml Output Total 300 ml Balance 90 ml Intake Oral 180 ml IV Total 210 ml Output Urine Total 300 ml Laboratory Tests 11/17/16 20:05: D-Dimer > 9000H, Ammonia 18, Carcinoembryonic Antigen 3.1H, CA 19-9 Antigen 7.56 , Free Prostate Specific Antigen [Pending], Percent Free Prostate Specific Ag [ Pending], Prostate Specific Antigen Total [Pending], HIV (1&2) Antibody Rapid Negative 11/18/16 03:30: White Blood Count 9.5, Red Blood Count 4.31L, Hemoglobin 12.0L, Hematocrit 38.6L , Mean Corpuscular Volume 90, Mean Corpuscular Hemoglobin 27.8, Mean Corpuscular Hemoglobin Concent 31.0L, Red Cell Distribution Width 14.4, Platelet Count 118L, Mean Platelet Volume 12.8H, Neutrophils (%) (Auto) 66.7, Lymphocytes (%) (Auto) 18.4L, Monocytes (%) (Auto) 13.5H, Eosinophils (%) (Auto ) 0.3, Basophils (%) (Auto) 1.1, Sodium Level 139, Potassium Level 3.5, Chloride Level 101, Carbon Dioxide Level 23, Anion Gap 15, Blood Urea Nitrogen 11, Creatinine 1.3H, Estimat Glomerular Filtration Rate > 60, Glucose Level 87, Calcium Level 8.8 11/18/16 12:40: White Blood Count 9.2, Red Blood Count 5.24, Hemoglobin 14.0L, Hematocrit 47.3, Mean Corpuscular Volume 90, Mean Corpuscular Hemoglobin 26.7L, Mean Corpuscular Hemoglobin Concent 29.5L, Red Cell Distribution Width 14.4, Platelet Count 144L , Mean Platelet Volume 14.0H, Neutrophils (%) (Auto) 70.7, Lymphocytes (%) (Auto ) 15.2L, Monocytes (%) (Auto) 12.4H, Eosinophils (%) (Auto) 0.5, Basophils (%) ( Auto) 1.2, Activated Partial Thromboplast Time 33, Uric Acid 6.1, Total Creatine Kinase 116 Height (Feet): 5 Height (Inches): 7.00 Weight (Pounds): 160 General Appearance: lethargic EENT: normal ENT inspection Neck: normal alignment Cardiovascular: normal peripheral pulses, normal rate, regular rhythm Respiratory/Chest: chest wall non-tender, lungs clear, normal breath sounds Abdomen: normal bowel sounds, non tender, soft Extremities: normal inspection Edema: no edema noted Arm (L), no edema noted Arm (R), no edema noted Leg (L), no edema noted Leg (R), no edema noted Pedal (L), no edema noted Pedal (R), no edema noted Generalized Neurologic: motor weakness Skin: normal pigmentation, warm/dry DARRYL DAMON Nov 18, 2016 14:24
--- NOTE | 2016-11-18 15:55 | Infectious Diseases Prog Note ---
Assessment/Plan Problems: (1) Pneumonia Assessment & Plan: continue cefepime and vancomycin, CT chest confirmed RLL infiltrates , and massive PE (2) Hemoptysis Assessment & Plan: due to massive PE, confirmed on CT chest , pulmonary is following (3) Chest pain Assessment & Plan: due to the above , rule out ACS, recommend troponin, monitor to rule out [place], and cardiac consult (4) Pulmonary embolism Assessment & Plan: on heparin drip, hematology and pulmonary is following (5) Aortic dissection Assessment & Plan: with thrombosis, recommend immediate vascular surgery eval , for possible surgical intervention . Subjective Respiratory: Reports: dry cough Allergies: Coded Allergies: NO KNOWN DRUG ALLERGIES (Unverified Allergy, Unknown, 10/15/13) Objective Vital Signs Last 24 Hour Vital Signs Date Time Temp Pulse Resp B/P (MAP) Pulse Ox O2 Delivery O2 Flow Rate FiO2 11/18/16 12:00 98.5 64 18 139/84 98 Room Air 11/18/16 12:00 66 11/18/16 09:44 61 11/18/16 08:00 99.9 73 18 131/75 94 Room Air 11/18/16 08:00 73 11/18/16 04:00 98.1 69 20 131/81 95 Room Air 11/18/16 04:00 73 11/17/16 21:44 75 11/17/16 21:25 99.8 74 20 133/93 94 Room Air 11/17/16 20:15 70 18 Room Air 11/17/16 16:00 97.5 76 20 135/95 95 Room Air Height (Feet): 5 Height (Inches): 7.00 Weight (Pounds): 160 General Appearance: WD/WN, no acute distress HEENT: normocephalic, atraumatic, anicteric Respiratory/Chest: no respiratory distress, no accessory muscle use, decreased breath sounds, crackles/rales Cardiovascular: normal peripheral pulses, normal rate, regular rhythm Abdomen: normal bowel sounds, soft, non tender, no organomegaly, non distended Extremities: no cyanosis, no clubbing Skin: no rash, no lesions Microbiology Date/Time Source Procedure Growth Status 11/16/16 06:45 Blood Blood Culture - Preliminary NO GROWTH AFTER 24 HOURS Resulted 11/16/16 06:45 Blood Blood Culture - Preliminary NO GROWTH AFTER 24 HOURS Resulted Laboratory Tests Test 11/17/16 20:05 8/28/17 03:30 11/18/16 12:40 D-Dimer > 9000 ng/mL (<500) H Ammonia 18 umol/L (16-60) Carcinoembryonic Antigen 3.1 ng/mL H CA 19-9 Antigen 7.56 U/mL (< 37) Free Prostate Specific Antigen Pending Percent Free Prostate Specific Ag Pending Prostate Specific Antigen Total Pending HIV (1&2) Antibody Rapid Negative (NEGATIVE) White Blood Count 9.5 K/UL (4.8-10.8) 9.2 K/UL (4.8-10.8) Red Blood Count 4.31 M/UL (4.70-6.10) L 5.24 M/UL (4.70-6.10) Hemoglobin 12.0 G/DL (14.2-18.0) L 14.0 G/DL (14.2-18.0) L Hematocrit 38.6 % (42.0-52.0) L 47.3 % (42.0-52.0) Mean Corpuscular Volume 90 FL (80-99) 90 FL (80-99) Mean Corpuscular Hemoglobin 27.8 PG (27.0-31.0) 26.7 PG (27.0-31.0) L Mean Corpuscular Hemoglobin Concent 31.0 G/DL (32.0-36.0) L 29.5 G/DL (32.0-36.0) L Red Cell Distribution Width 14.4 % (11.6-14.8) 14.4 % (11.6-14.8) Platelet Count 118 K/UL (150-450) L 144 K/UL (150-450) L Mean Platelet Volume 12.8 FL (6.5-10.1) H 14.0 FL (6.5-10.1) H Neutrophils (%) (Auto) 66.7 % (45.0-75.0) 70.7 % (45.0-75.0) Lymphocytes (%) (Auto) 18.4 % (20.0-45.0) L 15.2 % (20.0-45.0) L Monocytes (%) (Auto) 13.5 % (1.0-10.0) H 12.4 % (1.0-10.0) H Eosinophils (%) (Auto) 0.3 % (0.0-3.0) 0.5 % (0.0-3.0) Basophils (%) (Auto) 1.1 % (0.0-2.0) 1.2 % (0.0-2.0) Sodium Level 139 mEQ/L (135-145) Potassium Level 3.5 mEQ/L (3.4-4.9) Chloride Level 101 mEQ/L (98-107) Carbon Dioxide Level 23 mEQ/L (20-30) Anion Gap 15 (5-15) Blood Urea Nitrogen 11 mg/dL (7-23) Creatinine 1.3 mg/dL (0.7-1.2) H Estimat Glomerular Filtration Rate > 60 mL/min (>60) Glucose Level 87 mg/dL (74-106) Calcium Level 8.8 mg/dL (8.6-10.2) Activated Partial Thromboplast Time 33 SEC (23-33) Uric Acid 6.1 mg/dL (3.0-7.5) Total Creatine Kinase 116 U/L (38-174) Current Medications Medications (Trade) Dose Ordered Sig/Ata Route PRN Reason Start Time Stop Time Status Last Admin Dose Admin Acetaminophen (Tylenol) 650 mg Q4H PRN ORAL FEVER 11/17/16 20:15 12/16/16 08:14 Albuterol/ Ipratropium (DuoNeb 0.5-3(2.5)mg/3ml) 3 ml EVERY 4 HOURS PRN HHN Shortness of Breath 11/17/16 21:00 11/21/16 08:14 Cefepime HCl 2 gm/ Dextrose 110 ml @ 220 mls/hr Q12HR IV 11/17/16 21:00 11/23/16 10:29 11/18/16 09:10 Dextrose (Dextrose 50%) STAT PRN IV Hypoglycemia 11/18/16 08:15 12/16/16 08:14 Heparin Sodium/ Dextrose 500 ml @ 26.127 mls/ hr adjust per protocol IV 11/18/16 12:00 12/18/16 11:59 11/18/16 14:27 Lorazepam (Ativan 2mg/ml 1ml) 2 mg EVERY 2 HOURS PRN IV For Anxiety 11/17/16 20:00 11/23/16 08:14 Morphine Sulfate (Morphine Sulfate) 4 mg EVERY 4 HOURS PRN IVP Severe Pain (Pain Scale 7-10) 11/17/16 21:00 11/23/16 08:14 Ondansetron HCl (Zofran) 4 mg Q6H PRN IVP Nausea & Vomiting 11/17/16 20:15 12/16/16 08:14 Polyethylene Glycol (Miralax) 17 gm DAILYPRN PRN ORAL Constipation 11/18/16 08:15 12/16/16 08:14 Sodium Chloride 1,000 ml @ 50 mls/hr Q20H IV 11/17/16 18:30 12/16/16 09:59 11/18/16 14:35 Vancomycin HCl (Vanco rx to dose) 1 ea DAILY PRN MISC RX TO DOSE 11/18/16 09:00 12/16/16 09:59 Vancomycin/Sodium Chloride 250 ml @ 166.667 mls/hr Q12HR@1100,2300 IVPB 11/18/16 23:00 11/23/16 22:59 Herman Ta M.D. Nov 18, 2016 15:55
[2016-11-18 16:00] VITALS: BP 134/88
[2016-11-18 16:34] LABS: APPEARANCE,URINE CLEAR; KETONES,URINE 1+ (NEGATIVE); LEUKOCYTE ESTERASE ,URINE NEGATIVE (NEGATIVE); NITRITE,URINE NEGATIVE (NEGATIVE); PH,URINE 5 (4.5-8.0); PROTEIN,URINE NEGATIVE (NEGATIVE); UROBILINOGEN,URINE 1 MG/DL (0.0-1.0)
--- NOTE | 2016-11-18 16:48 | Diagnostic Imaging Report ---
Indication:Elevated Bun and Creatinine. Technique: Grayscale and duplex Doppler imaging of the kidneys performed. Comparison: None Findings: The size, contour, and echogenicity of both kidneys are within normal limits. Both kidneys measure between 10 and 11 cm in length. There is no hydronephrosis. The IVC and urinary bladder are unremarkable. Impression: Negative exam
[2016-11-18 17:15] LABS: BACTERIA,URINE FEW /HPF; RBC,URINE 0-2 /HPF (0 - 0); WBC,URINE 0-2 /HPF (0 - 0)
[2016-11-18 17:16] LABS: AMORPHOUS SEDIMENT,UR FEW /LPF
[2016-11-18] MEDS ORDERED: LORazepam Inj 2mg/ml 1ml IV PRN (19:00)
[2016-11-18] MEDS ORDERED: DuoNeb 0.5-3(2.5)mg/3ml neb HHN PRN (19:00)
--- NOTE | 2016-11-18 19:36 | Cardiology Report ---
APPROVED REPORT EXAM: Two-dimensional and M-mode echocardiogram with Doppler and color Doppler. INDICATION Left ventricular function M-Mode DIMENSIONS IVSd2.3 (0.7-1.1cm)Left Atrium (MM)3.4 (1.6-4.0cm) LVDd4.8 (3.5-5.6cm)Aortic Root2.8 (2.0-3.7cm) PWd0.9 (0.7-1.1cm)Aortic Cusp Exc.1.8 (1.5-2.0cm) LVDs3.4 (2.5-4.0cm) PWs0.9 cm Technically difficult study due to poor acoustic windows. Normal left ventricular chamber size, systolic function and wall motion. Left ventricular ejection fraction estimated to be 50-55%. Moderate left ventricular hypertrophy. No evidence of pericardial fat or effusion. Right cardiac chamber sizes are within normal limits. Mild left atrial enlargement by 2D. Focal aortic valve sclerosis with adequate cusp excursion Thickened mitral valve leaflets with normal excursion. Mitral annulus and aortic root calcification. Pulmonic valve not well visualized. Normal tricuspid valve structure. IVC is normal in size with physiologic collapse. A color flow and spectral Doppler study was performed and revealed: No aortic regurgitation. Trace mitral regurgitation. Left ventricular diastolic dysfunction grade 1. Pulmonic regurgitation present.
--- NOTE | 2016-11-18 19:48 | Cardiology Report ---
APPROVED REPORT EKG Measurement Heart [id number] Normal sinus rhythm Possible Left atrial enlargement Inferior infarct, age undetermined Abnormal ECG
[2016-11-18 20:00] VITALS: BP 139/74
[2016-11-18] MEDS ORDERED: Morphine Sulfate 4mg/ml Inj IVP PRN (21:00)
[2016-11-18] MEDS: Heparin 25,000u/D5W 500ml 500 ML IV SCH (22:31)
[2016-11-18] MEDS: Vancomycin 750mg/NS 250ml 250 ML IVPB SCH ×2 (22:40→23:26)
[2016-11-18] MEDS ORDERED: Vancomycin 750mg/NS 250ml 250 ML IVPB SCH (23:00)
[2016-11-19] VITALS: BP 143/94
[2016-11-19 04:00] VITALS: BP 136/93
[2016-11-19 05:03] LABS: BASOPHILS % (AUTO) 0.8 % (0.0-2.0); EOSINOPHILS % (AUTO) 1.1 % (0.0-3.0); LYMPHOCYTES % (AUTO) 19.6 % (20.0-45.0); MEAN CORPUSCULAR HEMOGLOBIN 26.7 PG (27.0-31.0); MEAN CORPUSCULAR HGB CONC 30.3 G/DL (32.0-36.0); MEAN CORPUSCULAR VOLUME 88 FL (80-99); MEAN PLATELET VOLUME 11.2 FL (6.5-10.1); MONOCYTES % (AUTO) 13.1 % (1.0-10.0); NEUTROPHILS % (AUTO) 65.4 % (45.0-75.0); PLATELET COUNT 149 K/UL (150-450); RED BLOOD COUNT 4.63 M/UL (4.70-6.10); RED CELL DISTRIBUTION WIDTH 13.7 % (11.6-14.8); WHITE BLOOD COUNT 9.6 K/UL (4.8-10.8)
[2016-11-19 05:21] LABS: PROTHROMBIN TIME 10.7 SEC (9.30-11.50)
[2016-11-19 05:26] LABS: ALANINE AMINOTRANSFERASE 9 U/L (3-41); ALBUMIN/GLOBULIN RATIO 0.9 (1.0-2.7); ANION GAP 12 (5-15); ASPARTATE AMINO TRANSFERASE 24 U/L (5-40); CALCIUM 8.9 mg/dL (8.6-10.2); CARBON DIOXIDE 26 mEQ/L (20-30); CHLORIDE 102 mEQ/L (98-107); CREATININE 1.2 mg/dL (0.7-1.2); GLOMERULAR FILTRATION RATE > 60 mL/min (>60); HEMOLYSIS 0; MAGNESIUM 1.7 mg/dL (1.7-2.5); PHOSPHORUS 3.1 mg/dL (2.5-4.8); POTASSIUM 3.8 mEQ/L (3.4-4.9); SODIUM 140 mEQ/L (135-145); TOTAL PROTEIN 6.1 g/dL (6.6-8.7)
[2016-11-19 06:30] LABS: BILIRUBIN,DIRECT 0.5 mg/dL (0.1-0.3)
[2016-11-19 08:10] VITALS: BP 131/92
[2016-11-19] MEDS: Cefepime HCl 2 GM in D5W 110 ML IV SCH ×2 (09:05→20:12)
[2016-11-19 10:16] LABS: PSA % FREE 33.5 % (.); PSA FREE 0.77 ng/mL; PSA TOTAL 2.3 ng/mL (0.0-4.0)
[2016-11-19] MEDS: Vancomycin 750mg/NS 250ml 250 ML IVPB SCH ×2 (10:40→22:23)
[2016-11-19 11:32] VITALS: BP 131/95
[2016-11-19] MEDS: Heparin 25,000u/D5W 500ml 500 ML IV SCH (13:13)
--- NOTE | 2016-11-19 14:20 | General Progress Note ---
Assessment/Plan Problem List: (1) Pneumonia ICD Codes: J18.9 - Pneumonia, unspecified organism SNOMED: 582825741 (2) Hemoptysis ICD Codes: R04.2 - Hemoptysis SNOMED: 76264118 Status: stable, progressing, tolerating diet Assessment/Plan o2 pulm tx abx ot pt diet cbc bmp am Subjective Constitutional: Reports: weakness Allergies: Coded Allergies: NO KNOWN DRUG ALLERGIES (Unverified Allergy, Unknown, 10/15/13) All Systems: reviewed and negative except above Subjective sleepy calm in bed Objective Last 24 Hour Vital Signs Date Time Temp Pulse Resp B/P (MAP) Pulse Ox O2 Delivery O2 Flow Rate FiO2 11/19/16 11:32 97.7 75 20 131/95 96 Room Air 11/19/16 08:10 97.9 64 20 131/92 95 Room Air 11/19/16 08:00 70 11/19/16 07:58 72 18 Room Air 21 11/19/16 04:00 62 11/19/16 04:00 98.2 68 20 136/93 95 Room Air 11/19/16 00:00 98.2 72 21 143/94 95 Room Air 11/19/16 00:00 74 11/18/16 20:00 98.2 78 20 139/74 96 Room Air 11/18/16 20:00 76 11/18/16 19:30 76 18 Room Air 21 11/18/16 16:00 98.6 74 18 134/88 96 Room Air 11/18/16 16:00 67 Intake and Output 11/19/16 11/20/16 19:00 07:00 Intake Total 716.284 ml Output Total 400 ml Balance 316.284 ml Intake Oral 390 ml IV Total 326.284 ml Output Urine Total 400 ml Laboratory Tests 11/18/16 15:00: Urine Color Yellow, Urine Appearance Clear, Urine pH 5, Urine Specific [place] 1.010, Urine Protein Negative, Urine Glucose (UA) Negative, Urine Ketones 1+H, Urine Occult Blood Negative, Urine Nitrite Negative, Urine Bilirubin Negative, Urine Urobilinogen 1H, Urine Leukocyte Esterase Negative, Urine RBC 0-2H, Urine WBC 0-2, Urine Squamous Epithelial Cells None, Urine Amorphous Sediment FewH, Urine Bacteria Few, Urine Eosinophils None seen, Urine Random Sodium 38, Urine Potassium Timed 14 11/18/16 20:25: Activated Partial Thromboplast Time > 150*H 11/19/16 04:45: Activated Partial Thromboplast Time 79H, White Blood Count 9.6, Red Blood Count 4.63L, Hemoglobin 12.4L, Hematocrit 40.8L, Mean Corpuscular Volume 88, Mean Corpuscular Hemoglobin 26.7L, Mean Corpuscular Hemoglobin Concent 30.3L, Red Cell Distribution Width 13.7, Platelet Count 149L, Mean Platelet Volume 11.2H, Neutrophils (%) (Auto) 65.4, Lymphocytes (%) (Auto) 19.6L, Monocytes (%) (Auto) 13.1H, Eosinophils (%) (Auto) 1.1, Basophils (%) (Auto) 0.8, Prothrombin Time 10.7, Prothromb Time International Ratio 1.0, Sodium Level 140, Potassium Level 3.8, Chloride Level 102, Carbon Dioxide Level 26, Anion Gap 12, Blood Urea Nitrogen 10, Creatinine 1.2, Estimat Glomerular Filtration Rate > 60, Glucose Level 105, Calcium Level 8.9, Phosphorus Level 3.1, Magnesium Level 1.7, Total Bilirubin 1.2, Direct Bilirubin 0.5H, Aspartate Amino Transf (AST/SGOT) 24, Alanine Aminotransferase (ALT/SGPT) 9, Alkaline Phosphatase 51, Total Protein 6.1L, Albumin 2.9L, Globulin 3.2, Albumin/Globulin Ratio 0.9L Height (Feet): 5 Height (Inches): 7.00 Weight (Pounds): 160 General Appearance: lethargic EENT: normal ENT inspection Neck: normal alignment Cardiovascular: normal peripheral pulses, normal rate, regular rhythm Respiratory/Chest: chest wall non-tender, lungs clear, normal breath sounds Abdomen: normal bowel sounds, non tender, soft Extremities: normal inspection Edema: no edema noted Arm (L), no edema noted Arm (R), no edema noted Leg (L), no edema noted Leg (R), no edema noted Pedal (L), no edema noted Pedal (R), no edema noted Generalized Neurologic: responsive, motor weakness Skin: normal pigmentation, warm/dry DARRYL DAMON Nov 19, 2016 14:20
--- NOTE | 2016-11-19 14:48 | Infectious Diseases Prog Note ---
Assessment/Plan Problems: (1) Pneumonia Assessment & Plan: on cefepime and vancomycin, CT chest confirmed RLL infiltrates , and massive PE (2) Hemoptysis Assessment & Plan: due to massive PE, confirmed on CT chest , pulmonary is following (3) Chest pain Assessment & Plan: due to the above , rule out ACS, monitor trop to rule out [place], and cardiac consult (4) Pulmonary embolism Assessment & Plan: on heparin drip, hematology and pulmonary is following (5) Aortic dissection Assessment & Plan: with thrombosis, recommend immediate vascular surgery eval , for possible surgical intervention . Subjective Respiratory: Reports: productive cough Cardiovascular: Reports: chest pain Allergies: Coded Allergies: NO KNOWN DRUG ALLERGIES (Unverified Allergy, Unknown, 10/15/13) All Systems: reviewed and negative except above Objective Vital Signs Last 24 Hour Vital Signs Date Time Temp Pulse Resp B/P (MAP) Pulse Ox O2 Delivery O2 Flow Rate FiO2 11/19/16 11:32 97.7 75 20 131/95 96 Room Air 11/19/16 08:10 97.9 64 20 131/92 95 Room Air 11/19/16 08:00 70 11/19/16 07:58 72 18 Room Air 11/19/16 04:00 62 11/19/16 04:00 98.2 68 20 136/93 95 Room Air 11/19/16 00:00 98.2 72 21 143/94 95 Room Air 11/19/16 00:00 74 11/18/16 20:00 98.2 78 20 139/74 96 Room Air 11/18/16 20:00 76 11/18/16 19:30 76 18 Room Air 11/18/16 16:00 98.6 74 18 134/88 96 Room Air 11/18/16 16:00 67 Height (Feet): 5 Height (Inches): 7.00 Weight (Pounds): 160 General Appearance: WD/WN, no acute distress HEENT: normocephalic, atraumatic, anicteric Respiratory/Chest: chest wall non-tender, normal breath sounds, no respiratory distress, no accessory muscle use, decreased breath sounds Cardiovascular: normal peripheral pulses, normal rate, regular rhythm Abdomen: normal bowel sounds, soft, non tender, no organomegaly, non distended , no mass Extremities: no cyanosis, no clubbing Skin: no rash, no lesions Laboratory Tests Test 11/18/16 15:00 11/18/16 20:25 11/19/16 04:45 Urine Color Yellow Urine Appearance Clear Urine pH 5 (4.5-8.0) Urine Specific [place] 1.010 (1.005-1.035) Urine Protein Negative (NEGATIVE) Urine Glucose (UA) Negative (NEGATIVE) Urine Ketones 1+ (NEGATIVE) H Urine Occult Blood Negative (NEGATIVE) Urine Nitrite Negative (NEGATIVE) Urine Bilirubin Negative (NEGATIVE) Urine Urobilinogen 1 MG/DL (0.0-1.0) H Urine Leukocyte Esterase Negative (NEGATIVE) Urine RBC 0-2 /HPF (0 - 0) H Urine WBC 0-2 /HPF (0 - 0) Urine Squamous Epithelial Cells None /LPF (NONE/OCC) Urine Amorphous Sediment Few /LPF (NONE) H Urine Bacteria Few /HPF (NONE) Urine Eosinophils None seen Urine Random Sodium 38 mmol/L Urine Potassium Timed 14 mmol/L Activated Partial Thromboplast Time > 150 SEC (23-33) *H 79 SEC (23-33) H White Blood Count 9.6 K/UL (4.8-10.8) Red Blood Count 4.63 M/UL (4.70-6.10) L Hemoglobin 12.4 G/DL (14.2-18.0) L Hematocrit 40.8 % (42.0-52.0) L Mean Corpuscular Volume 88 FL (80-99) Mean Corpuscular Hemoglobin 26.7 PG (27.0-31.0) L Mean Corpuscular Hemoglobin Concent 30.3 G/DL (32.0-36.0) L Red Cell Distribution Width 13.7 % (11.6-14.8) Platelet Count 149 K/UL (150-450) L Mean Platelet Volume 11.2 FL (6.5-10.1) H Neutrophils (%) (Auto) 65.4 % (45.0-75.0) Lymphocytes (%) (Auto) 19.6 % (20.0-45.0) L Monocytes (%) (Auto) 13.1 % (1.0-10.0) H Eosinophils (%) (Auto) 1.1 % (0.0-3.0) Basophils (%) (Auto) 0.8 % (0.0-2.0) Prothrombin Time 10.7 SEC (9.30-11.50) Prothromb Time International Ratio 1.0 (0.9-1.1) Sodium Level 140 mEQ/L (135-145) Potassium Level 3.8 mEQ/L (3.4-4.9) Chloride Level 102 mEQ/L (98-107) Carbon Dioxide Level 26 mEQ/L (20-30) Anion Gap 12 (5-15) Blood Urea Nitrogen 10 mg/dL (7-23) Creatinine 1.2 mg/dL (0.7-1.2) Estimat Glomerular Filtration Rate > 60 mL/min (>60) Glucose Level 105 mg/dL (74-106) Calcium Level 8.9 mg/dL (8.6-10.2) Phosphorus Level 3.1 mg/dL (2.5-4.8) Magnesium Level 1.7 mg/dL (1.7-2.5) Total Bilirubin 1.2 mg/dL (0.0-1.2) Direct Bilirubin 0.5 mg/dL (0.1-0.3) H Aspartate Amino Transf (AST/SGOT) 24 U/L (5-40) Alanine Aminotransferase (ALT/SGPT) 9 U/L (3-41) Alkaline Phosphatase 51 U/L (40-129) Total Protein 6.1 g/dL (6.6-8.7) L Albumin 2.9 g/dL (3.5-5.2) L Globulin 3.2 g/dL Albumin/Globulin Ratio 0.9 (1.0-2.7) L Current Medications Medications (Trade) Dose Ordered Sig/Ata Route PRN Reason Start Time Stop Time Status Last Admin Dose Admin Acetaminophen (Tylenol) 650 mg Q4H PRN ORAL FEVER 11/18/16 19:00 12/16/16 18:59 Albuterol/ Ipratropium (DuoNeb 0.5-3(2.5)mg/3ml) 3 ml Q4H PRN HHN Shortness of Breath 11/18/16 19:00 11/23/16 18:59 Cefepime HCl 2 gm/ Dextrose 110 ml @ 220 mls/hr Q12HR IV 11/18/16 21:00 11/23/16 10:29 11/19/16 09:05 Dextrose (Dextrose 50%) STAT PRN IV Hypoglycemia 11/18/16 19:00 12/18/16 18:59 Heparin Sodium/ Dextrose 500 ml @ 20.321 mls/ hr adjust per protocol IV 11/18/16 19:00 12/18/16 11:59 11/19/16 13:13 Lorazepam (Ativan 2mg/ml 1ml) 2 mg Q2H PRN IV For Anxiety 11/18/16 19:00 11/25/16 18:59 Morphine Sulfate (Morphine Sulfate) 4 mg Q4H PRN IVP Severe Pain (Pain Scale 7-10) 11/18/16 21:00 11/25/16 20:59 Ondansetron HCl (Zofran) 4 mg Q6H PRN IVP Nausea & Vomiting 11/18/16 19:00 12/16/16 18:59 Polyethylene Glycol (Miralax) 17 gm DAILYPRN PRN ORAL Constipation 11/18/16 19:00 12/18/16 18:59 Sodium Chloride 1,000 ml @ 50 mls/hr Q20H IV 11/18/16 19:00 12/16/16 09:59 11/18/16 20:54 Vancomycin HCl (Vanco rx to dose) 1 ea DAILY PRN MISC RX TO DOSE 11/18/16 19:00 12/18/16 18:59 Vancomycin/Sodium Chloride 250 ml @ 166.667 mls/hr Q12HR@1100,2300 IVPB 11/18/16 23:00 11/23/16 22:59 11/19/16 10:40 Herman Ta M.D. Nov 19, 2016 14:48
[2016-11-19 15:35] VITALS: BP 136/76
--- NOTE | 2016-11-19 16:34 | Diagnostic Imaging Report ---
Indication: Abdominal Pain. Aortic dissection. Chest pain. Pleuritic chest pain. Technique: Continuous helical transaxial imaging of the abdomen and pelvis was obtained from the lung base to the pubic symphysis during rapid intravenous contrast administration. Arterial phase of enhancement obtained. Coronal 2-D reformats were also obtained and maximum intensity projection images in multiple planes. Study obtained in a Siemens sensation [address] Total Dose length Product (DLP): [address] Dose Index Volume (CTDIvol): 0.15, 8.11, 48.67, 12.15 mGy Comparison: None Findings: Vascular findings: There is a thrombosed dissection involving the right lateral and anterior aspect of the descending thoracic aorta extending into the lateral right aspect of the upper abdominal aorta. The thrombosed dissection appears to be the false lumen. A small focus of intima appears to extend into the orifice at the origin of celiac artery which shows moderate to severe narrowing (for example image 177 series 5). The branches of the celiac artery appear widely patent otherwise distal to the area of stenosis. The superior mesenteric artery shows some mural calcification and thrombus at the origin but only mildly stenotic. The origin of the right renal artery shows moderate narrowing estimated at 50-60% on the basis of the thrombosed dissection flap that extends partially into the lumen of the right renal artery at its posterior wall. The left renal artery origin is uninvolved and appears normal. Both renal arteries opacify normally otherwise. Below the renal artery, there is some focal dilatation of the aorta consistent with a fusiform aneurysm having a maximum diameter of about 3.2 cm. In this portion of the aorta, the thrombosed false lumen becomes larger encompassing the posterior wall and left lateral wall as well as the anterior wall of the aorta. At the same time, the contrast opacified true lumen becomes much smaller. The thrombosed false lumen extends into the left common iliac artery, external iliac artery and internal iliac artery, which are all thrombosed. There is reconstitution of the left common femoral artery which is a diffusely narrow. The midportion of the left internal iliac artery also partially reconstitutes. The origin of the right common iliac artery is moderately narrow estimated at about 50-60%. Moderate generalized narrowing of the right external iliac artery noted proximally. The right common femoral artery is occluded. The right superficial femoral artery at its visualized portion proximally is occluded as well. Nonvascular findings: There is a mild to moderate right pleural effusion. Consolidation, groundglass opacities demonstrated. Pneumonia could be present at the right lung base. Please correlate clinically. There is trace left pleural fluid as well. The gallbladder is contracted. There is no free fluid or free air. There is a small left inguinal hernia containing fat. Mild anterolisthesis is noted at L3-4. Multilevel narrowing of intervertebral discs demonstrated. Multilevel facet arthropathy demonstrated. Bilateral pars interarticularis defects demonstrated at L3. Impression: Severe vascular disease involving aorta, iliac arteries and proximal femoral arteries. 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 Abdominal aortic dissection with thrombosis of the false lumen, which gives rise to an occluded left common iliac, left external iliac and left internal iliac arteries. 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 60% right renal artery origin stenosis due to dissection extending along the posterior orifice. No significant narrowing of the SMA or left renal artery. Severe, visualized iliofemoral disease: Left: occluded left common iliac, left external iliac and left internal iliac artery. Right: 60% stenosis origin of right common -- iliac artery. Occluded right RF ENGINEER, SFA. Recommend vascular surgery consult. Mild to moderate right pleural effusion and suspected pneumonia the right lung base. Please correlate clinically. Degenerative changes of the lumbar spine. L3 pars interarticularis defect. Spondylolisthesis grade 1 L3 on [address]4. The CT scanner at [facility] is accredited by the [employer] and the scans are performed using dose optimization techniques as appropriate to a performed exam including Automatic Exposure control.
--- NOTE | 2016-11-19 17:41 | Pulmonology Progress Note ---
Assessment/Plan Problems: (1) Pulmonary embolism (2) Pleuritic chest pain (3) Aortic dissection Assessment/Plan check echo, lv function ok, no comment about pulmonary pressure will start anticoagulation, ( Hem an vascular agreed), hemoptysis stopped needs w/u for occult malignancy. PSA WNL might go to med/surg if ok with cardiology Subjective ROS Limited/Unobtainable: No Constitutional: Reports: no symptoms HEENT: Repors: no symptoms Allergies: Coded Allergies: NO KNOWN DRUG ALLERGIES (Unverified Allergy, Unknown, 10/15/13) Objective Last 24 Hour Vital Signs Date Time Temp Pulse Resp B/P (MAP) Pulse Ox O2 Delivery O2 Flow Rate FiO2 11/19/16 15:35 98.6 80 20 136/76 96 Room Air 11/19/16 11:32 97.7 75 20 131/95 96 Room Air 11/19/16 08:10 97.9 64 20 131/92 95 Room Air 11/19/16 08:00 70 11/19/16 07:58 72 18 Room Air 21 11/19/16 04:00 62 11/19/16 04:00 98.2 68 20 136/93 95 Room Air 11/19/16 00:00 98.2 72 21 143/94 95 Room Air 11/19/16 00:00 74 11/18/16 20:00 98.2 78 20 139/74 96 Room Air 11/18/16 20:00 76 11/18/16 19:30 76 18 Room Air 21 Intake and Output 11/19/16 11/20/16 19:00 07:00 Intake Total 1267.889 ml Output Total 750 ml Balance 517.889 ml Intake Oral 390 ml IV Total 877.889 ml Output Urine Total 750 ml Objective right chest pain better, no more hemoptysis General Appearance: WD/WN HEENT: normocephalic, atraumatic Respiratory/Chest: chest wall non-tender, lungs clear Cardiovascular: normal peripheral pulses, normal rate Abdomen: normal bowel sounds, no organomegaly Genitourinary: normal external genitalia Extremities: no cyanosis Laboratory Tests 11/18/16 20:25: Activated Partial Thromboplast Time > 150*H 11/19/16 04:45: Activated Partial Thromboplast Time 79H, White Blood Count 9.6, Red Blood Count 4.63L, Hemoglobin 12.4L, Hematocrit 40.8L, Mean Corpuscular Volume 88, Mean Corpuscular Hemoglobin 26.7L, Mean Corpuscular Hemoglobin Concent 30.3L, Red Cell Distribution Width 13.7, Platelet Count 149L, Mean Platelet Volume 11.2H, Neutrophils (%) (Auto) 65.4, Lymphocytes (%) (Auto) 19.6L, Monocytes (%) (Auto) 13.1H, Eosinophils (%) (Auto) 1.1, Basophils (%) (Auto) 0.8, Prothrombin Time 10.7, Prothromb Time International Ratio 1.0, Sodium Level 140, Potassium Level 3.8, Chloride Level 102, Carbon Dioxide Level 26, Anion Gap 12, Blood Urea Nitrogen 10, Creatinine 1.2, Estimat Glomerular Filtration Rate > 60, Glucose Level 105, Calcium Level 8.9, Phosphorus Level 3.1, Magnesium Level 1.7, Total Bilirubin 1.2, Direct Bilirubin 0.5H, Aspartate Amino Transf (AST/SGOT) 24, Alanine Aminotransferase (ALT/SGPT) 9, Alkaline Phosphatase 51, Total Protein 6.1L, Albumin 2.9L, Globulin 3.2, Albumin/Globulin Ratio 0.9L Current Medications Medications (Trade) Dose Ordered Sig/Ata Route PRN Reason Start Time Stop Time Status Last Admin Dose Admin Acetaminophen (Tylenol) 650 mg Q4H PRN ORAL FEVER 11/18/16 19:00 12/16/16 18:59 Albuterol/ Ipratropium (DuoNeb 0.5-3(2.5)mg/3ml) 3 ml Q4H PRN HHN Shortness of Breath 11/18/16 19:00 11/23/16 18:59 Cefepime HCl 2 gm/ Dextrose 110 ml @ 220 mls/hr Q12HR IV 11/18/16 21:00 11/23/16 10:29 11/19/16 09:05 Dextrose (Dextrose 50%) STAT PRN IV Hypoglycemia 11/18/16 19:00 12/18/16 18:59 Heparin Sodium/ Dextrose 500 ml @ 20.321 mls/ hr adjust per protocol IV 11/18/16 19:00 12/18/16 11:59 11/19/16 13:13 Lorazepam (Ativan 2mg/ml 1ml) 2 mg Q2H PRN IV For Anxiety 11/18/16 19:00 11/25/16 18:59 Morphine Sulfate (Morphine Sulfate) 4 mg Q4H PRN IVP Severe Pain (Pain Scale 7-10) 11/18/16 21:00 11/25/16 20:59 Ondansetron HCl (Zofran) 4 mg Q6H PRN IVP Nausea & Vomiting 11/18/16 19:00 12/16/16 18:59 Polyethylene Glycol (Miralax) 17 gm DAILYPRN PRN ORAL Constipation 11/18/16 19:00 12/18/16 18:59 Sodium Chloride 1,000 ml @ 50 mls/hr Q20H IV 11/18/16 19:00 12/16/16 09:59 11/19/16 15:25 Vancomycin HCl (Vanco rx to dose) 1 ea DAILY PRN MISC RX TO DOSE 11/18/16 19:00 12/18/16 18:59 Vancomycin/Sodium Chloride 250 ml @ 166.667 mls/hr Q12HR@1100,2300 IVPB 11/18/16 23:00 11/23/16 22:59 11/19/16 10:40 VERONICA CHEUNG Nov 19, 2016 17:41
[2016-11-19 20:00] VITALS: BP 138/76
--- NOTE | 2016-11-19 23:43 | General Progress Note ---
Assessment/Plan Status: stable Assessment/Plan IMPRESSION: 1. Thrombocytopenia, multifactorial. 2. Hemoptysis, unknown origin. 3. Interstitial edema. 4. Increased D-dimer, rule out deep venous thrombosis. 5. Pulmonary emboli. 6. Right lower lobe pneumonia. 7. Hemoptysis. 8. History of smoking. 9. Chronic obstructive pulmonary disease. 10. History of alcohol abuse. 11. Nicotine dependence. 12. Acute/chronic renal insufficiency. 13. Pleuritic chest pain. 14. Failure to thrive. RECOMMENDATIONS: 1. Watch count. 2. Watch coagulopathy. 3. Packed red blood cell transfusion, p.r.n. based. 4. Platelet transfusion, p.r.n. based. 5. Check tumor markers. 6. Venous Doppler of bilateral lower extremity to rule out deep venous thrombosis. 7. Pulmonary evaluation. 8. Antibiotic IV. 9. ID followup. 10. CT chest to rule out malignancy. 11. Skin care. 12. Nutrition. 13. Close followup. Subjective Date patient seen: Nov 18, 2016 Time patient seen: 06:00 Constitutional: Denies: no symptoms, chills, diaphoresis, fever, malaise, weakness, other HEENT: Denies: no symptoms, eye pain, blurred vision, tearing, double vision, ear pain, ear discharge, nose pain, nose congestion, throat pain, throat swelling, mouth pain, mouth swelling, other Cardiovascular: Denies: no symptoms, chest pain, edema, irregular heart rate, lightheadedness, palpitations, syncope, other Respiratory: Denies: no symptoms, cough, orthopnea, shortness of breath, SOB with excertion, SOB at rest, sputum, stridor, wheezing, other Gastrointestinal/Abdominal: Denies: no symptoms, abdomen distended, abdominal pain, black stools, tarry stools, blood in stool, constipated, diarrhea, difficulty swallowing, nausea, poor appetite, poor fluid intake, rectal bleeding , vomiting, other Genitourinary: Denies: no symptoms, burning, discharge, frequency, flank pain, hematuria, incontinence, pain, urgency, other Hematologic/Lymphatic: Reports: other Allergies: Coded Allergies: NO KNOWN DRUG ALLERGIES (Unverified Allergy, Unknown, 10/15/13) Subjective Patient in room. Calm. Comfortable. Afebrile. No distress. Objective Last 24 Hour Vital Signs Date Time Temp Pulse Resp B/P (MAP) Pulse Ox O2 Delivery O2 Flow Rate FiO2 11/19/16 20:00 98.1 70 18 138/76 95 Room Air 11/19/16 19:30 82 18 Room Air 11/19/16 16:00 64 11/19/16 15:35 98.6 80 20 136/76 96 Room Air 11/19/16 12:00 62 11/19/16 11:32 97.7 75 20 131/95 96 Room Air 11/19/16 08:10 97.9 64 20 131/92 95 Room Air 11/19/16 08:00 70 11/19/16 07:58 72 18 Room Air 21 11/19/16 04:00 62 11/19/16 04:00 98.2 68 20 136/93 95 Room Air 11/19/16 00:00 98.2 72 21 143/94 95 Room Air 11/19/16 00:00 74 Intake and Output 11/19/16 11/20/16 19:00 07:00 Intake Total 1528.531 ml Output Total 950 ml Balance 578.531 ml Intake Oral 510 ml IV Total 1018.531 ml Output Urine Total 950 ml Labs Test 11/18/16 03:30 11/18/16 12:40 11/18/16 15:00 11/18/16 20:25 White Blood Count 9.5 K/UL (4.8-10.8) 9.2 K/UL (4.8-10.8) Red Blood Count 4.31 M/UL (4.70-6.10) 5.24 M/UL (4.70-6.10) Hemoglobin 12.0 G/DL (14.2-18.0) 14.0 G/DL (14.2-18.0) Hematocrit 38.6 % (42.0-52.0) 47.3 % (42.0-52.0) Mean Corpuscular Volume 90 FL (80-99) 90 FL (80-99) Mean Corpuscular Hemoglobin 27.8 PG (27.0-31.0) 26.7 PG (27.0-31.0) Mean Corpuscular Hemoglobin Concent 31.0 G/DL (32.0-36.0) 29.5 G/DL (32.0-36.0) Red Cell Distribution Width 14.4 % (11.6-14.8) 14.4 % (11.6-14.8) Platelet Count 118 K/UL (150-450) 144 K/UL (150-450) Mean Platelet Volume 12.8 FL (6.5-10.1) 14.0 FL (6.5-10.1) Neutrophils (%) (Auto) 66.7 % (45.0-75.0) 70.7 % (45.0-75.0) Lymphocytes (%) (Auto) 18.4 % (20.0-45.0) 15.2 % (20.0-45.0) Monocytes (%) (Auto) 13.5 % (1.0-10.0) 12.4 % (1.0-10.0) Eosinophils (%) (Auto) 0.3 % (0.0-3.0) 0.5 % (0.0-3.0) Basophils (%) (Auto) 1.1 % (0.0-2.0) 1.2 % (0.0-2.0) Sodium Level 139 mEQ/L (135-145) Potassium Level 3.5 mEQ/L (3.4-4.9) Chloride Level 101 mEQ/L (98-107) Carbon Dioxide Level 23 mEQ/L (20-30) Anion Gap 15 (5-15) Blood Urea Nitrogen 11 mg/dL (7-23) Creatinine 1.3 mg/dL (0.7-1.2) Estimat Glomerular Filtration Rate > 60 mL/min (>60) Glucose Level 87 mg/dL (74-106) Calcium Level 8.8 mg/dL (8.6-10.2) Activated Partial Thromboplast Time 33 SEC (23-33) > 150 SEC (23-33) Uric Acid 6.1 mg/dL (3.0-7.5) Total Creatine Kinase 116 U/L (38-174) Urine Color Yellow Urine Appearance Clear Urine pH 5 (4.5-8.0) Urine Specific [place] 1.010 (1.005-1.035) Urine Protein Negative (NEGATIVE) Urine Glucose (UA) Negative (NEGATIVE) Urine Ketones 1+ (NEGATIVE) Urine Occult Blood Negative (NEGATIVE) Urine Nitrite Negative (NEGATIVE) Urine Bilirubin Negative (NEGATIVE) Urine Urobilinogen 1 MG/DL (0.0-1.0) Urine Leukocyte Esterase Negative (NEGATIVE) Urine RBC 0-2 /HPF (0 - 0) Urine WBC 0-2 /HPF (0 - 0) Urine Squamous Epithelial Cells None /LPF (NONE/OCC) Urine Amorphous Sediment Few /LPF (NONE) Urine Bacteria Few /HPF (NONE) Urine Eosinophils None seen Urine Random Sodium 38 mmol/L Urine Potassium Timed 14 mmol/L Test 11/19/16 04:45 White Blood Count 9.6 K/UL (4.8-10.8) Red Blood Count 4.63 M/UL (4.70-6.10) Hemoglobin 12.4 G/DL (14.2-18.0) Hematocrit 40.8 % (42.0-52.0) Mean Corpuscular Volume 88 FL (80-99) Mean Corpuscular Hemoglobin 26.7 PG (27.0-31.0) Mean Corpuscular Hemoglobin Concent 30.3 G/DL (32.0-36.0) Red Cell Distribution Width 13.7 % (11.6-14.8) Platelet Count 149 K/UL (150-450) Mean Platelet Volume 11.2 FL (6.5-10.1) Neutrophils (%) (Auto) 65.4 % (45.0-75.0) Lymphocytes (%) (Auto) 19.6 % (20.0-45.0) Monocytes (%) (Auto) 13.1 % (1.0-10.0) Eosinophils (%) (Auto) 1.1 % (0.0-3.0) Basophils (%) (Auto) 0.8 % (0.0-2.0) Prothrombin Time 10.7 SEC (9.30-11.50) Prothromb Time International Ratio 1.0 (0.9-1.1) Activated Partial Thromboplast Time 79 SEC (23-33) Sodium Level 140 mEQ/L (135-145) Potassium Level 3.8 mEQ/L (3.4-4.9) Chloride Level 102 mEQ/L (98-107) Carbon Dioxide Level 26 mEQ/L (20-30) Anion Gap 12 (5-15) Blood Urea Nitrogen 10 mg/dL (7-23) Creatinine 1.2 mg/dL (0.7-1.2) Estimat Glomerular Filtration Rate > 60 mL/min (>60) Glucose Level 105 mg/dL (74-106) Calcium Level 8.9 mg/dL (8.6-10.2) Phosphorus Level 3.1 mg/dL (2.5-4.8) Magnesium Level 1.7 mg/dL (1.7-2.5) Total Bilirubin 1.2 mg/dL (0.0-1.2) Direct Bilirubin 0.5 mg/dL (0.1-0.3) Aspartate Amino Transf (AST/SGOT) 24 U/L (5-40) Alanine Aminotransferase (ALT/SGPT) 9 U/L (3-41) Alkaline Phosphatase 51 U/L (40-129) Total Protein 6.1 g/dL (6.6-8.7) Albumin 2.9 g/dL (3.5-5.2) Globulin 3.2 g/dL Albumin/Globulin Ratio 0.9 (1.0-2.7) Laboratory Tests 11/19/16 04:45: White Blood Count 9.6, Red Blood Count 4.63L, Hemoglobin 12.4L, Hematocrit 40.8L , Mean Corpuscular Volume 88, Mean Corpuscular Hemoglobin 26.7L, Mean Corpuscular Hemoglobin Concent 30.3L, Red Cell Distribution Width 13.7, Platelet Count 149L, Mean Platelet Volume 11.2H, Neutrophils (%) (Auto) 65.4, Lymphocytes (%) (Auto) 19.6L, Monocytes (%) (Auto) 13.1H, Eosinophils (%) (Auto ) 1.1, Basophils (%) (Auto) 0.8, Prothrombin Time 10.7, Prothromb Time International Ratio 1.0, Activated Partial Thromboplast Time 79H, Sodium Level 140, Potassium Level 3.8, Chloride Level 102, Carbon Dioxide Level 26, Anion Gap 12, Blood Urea Nitrogen 10, Creatinine 1.2, Estimat Glomerular Filtration Rate > 60, Glucose Level 105, Calcium Level 8.9, Phosphorus Level 3.1, Magnesium Level 1.7, Total Bilirubin 1.2, Direct Bilirubin 0.5H, Aspartate Amino Transf (AST/SGOT) 24, Alanine Aminotransferase (ALT/SGPT) 9, Alkaline Phosphatase 51, Total Protein 6.1L, Albumin 2.9L, Globulin 3.2, Albumin/ Globulin Ratio 0.9L Height (Feet): 5 Height (Inches): 7.00 Weight (Pounds): 160 General Appearance: no apparent distress Cardiovascular: normal rate Respiratory/Chest: lungs clear, normal breath sounds Abdomen: normal bowel sounds, non tender GAYLE VIZCARRA Nov 19, 2016 23:43
--- NOTE | 2016-11-19 23:46 | General Progress Note ---
Assessment/Plan Status: stable Assessment/Plan IMPRESSION: 1. Thrombocytopenia, multifactorial. --> Give plt transfusion if levels fall below 20k 2. Increased D-dimer, rule out deep venous thrombosis. 3. Hemoptysis, unknown origin. 4. Interstitial edema. 5. Pulmonary emboli. 6. Right lower lobe pneumonia. 7. Hemoptysis. 8. History of smoking. 9. Chronic obstructive pulmonary disease. 10. History of alcohol abuse. 11. Nicotine dependence. 12. Acute/chronic renal insufficiency. 13. Pleuritic chest pain. 14. Failure to thrive. RECOMMENDATIONS: 1. Packed red blood cell transfusion, p.r.n. based. 2. Platelet transfusion, p.r.n. based. 3. Watch count. 4. Watch coagulopathy. 5. Check tumor markers. 6. Venous Doppler of bilateral lower extremity to rule out deep venous thrombosis. 7. Pulmonary evaluation. 8. Antibiotic IV. 9. ID followup. 10. CT chest to rule out malignancy. 11. Skin care. 12. Nutrition. 13. Close followup. Subjective Date patient seen: Nov 19, 2016 Time patient seen: 06:00 Constitutional: Denies: no symptoms, chills, diaphoresis, fever, malaise, weakness, other HEENT: Denies: no symptoms, eye pain, blurred vision, tearing, double vision, ear pain, ear discharge, nose pain, nose congestion, throat pain, throat swelling, mouth pain, mouth swelling, other Cardiovascular: Denies: no symptoms, chest pain, edema, irregular heart rate, lightheadedness, palpitations, syncope, other Respiratory: Denies: no symptoms, cough, orthopnea, shortness of breath, SOB with excertion, SOB at rest, sputum, stridor, wheezing, other Gastrointestinal/Abdominal: Denies: no symptoms, abdomen distended, abdominal pain, black stools, tarry stools, blood in stool, constipated, diarrhea, difficulty swallowing, nausea, poor appetite, poor fluid intake, rectal bleeding , vomiting, other Genitourinary: Denies: no symptoms, burning, discharge, frequency, flank pain, hematuria, incontinence, pain, urgency, other Hematologic/Lymphatic: Reports: other Allergies: Coded Allergies: NO KNOWN DRUG ALLERGIES (Unverified Allergy, Unknown, 10/15/13) Subjective Patient in room. Calm. Comfortable. Afebrile. No distress. Objective Last 24 Hour Vital Signs Date Time Temp Pulse Resp B/P (MAP) Pulse Ox O2 Delivery O2 Flow Rate FiO2 11/19/16 20:00 98.1 70 18 138/76 95 Room Air 11/19/16 19:30 82 18 Room Air 21 11/19/16 16:00 64 11/19/16 15:35 98.6 80 20 136/76 96 Room Air 11/19/16 12:00 62 11/19/16 11:32 97.7 75 20 131/95 96 Room Air 11/19/16 08:10 97.9 64 20 131/92 95 Room Air 11/19/16 08:00 70 11/19/16 07:58 72 18 Room Air 21 11/19/16 04:00 62 11/19/16 04:00 98.2 68 20 136/93 95 Room Air 11/19/16 00:00 98.2 72 21 143/94 95 Room Air 11/19/16 00:00 74 Intake and Output 11/19/16 11/20/16 19:00 07:00 Intake Total 1528.531 ml Output Total 950 ml Balance 578.531 ml Intake Oral 510 ml IV Total 1018.531 ml Output Urine Total 950 ml Laboratory Tests 11/19/16 04:45: White Blood Count 9.6, Red Blood Count 4.63L, Hemoglobin 12.4L, Hematocrit 40.8L , Mean Corpuscular Volume 88, Mean Corpuscular Hemoglobin 26.7L, Mean Corpuscular Hemoglobin Concent 30.3L, Red Cell Distribution Width 13.7, Platelet Count 149L, Mean Platelet Volume 11.2H, Neutrophils (%) (Auto) 65.4, Lymphocytes (%) (Auto) 19.6L, Monocytes (%) (Auto) 13.1H, Eosinophils (%) (Auto ) 1.1, Basophils (%) (Auto) 0.8, Prothrombin Time 10.7, Prothromb Time International Ratio 1.0, Activated Partial Thromboplast Time 79H, Sodium Level 140, Potassium Level 3.8, Chloride Level 102, Carbon Dioxide Level 26, Anion Gap 12, Blood Urea Nitrogen 10, Creatinine 1.2, Estimat Glomerular Filtration Rate > 60, Glucose Level 105, Calcium Level 8.9, Phosphorus Level 3.1, Magnesium Level 1.7, Total Bilirubin 1.2, Direct Bilirubin 0.5H, Aspartate Amino Transf (AST/SGOT) 24, Alanine Aminotransferase (ALT/SGPT) 9, Alkaline Phosphatase 51, Total Protein 6.1L, Albumin 2.9L, Globulin 3.2, Albumin/ Globulin Ratio 0.9L Height (Feet): 5 Height (Inches): 7.00 Weight (Pounds): 160 General Appearance: no apparent distress Neck: normal alignment Cardiovascular: normal rate, regular rhythm Respiratory/Chest: normal breath sounds, no respiratory distress Abdomen: normal bowel sounds, non tender GAYLE VIZCARRA Nov 19, 2016 23:46
[2016-11-20] VITALS: BP 129/86
[2016-11-20 04:00] VITALS: BP 126/80
[2016-11-20 04:01] LABS: BASOPHILS % (AUTO) 0.8 % (0.0-2.0); EOSINOPHILS % (AUTO) 1.3 % (0.0-3.0); LYMPHOCYTES % (AUTO) 18.5 % (20.0-45.0); MEAN CORPUSCULAR HEMOGLOBIN 27.2 PG (27.0-31.0); MEAN CORPUSCULAR HGB CONC 30.7 G/DL (32.0-36.0); MEAN CORPUSCULAR VOLUME 89 FL (80-99); MEAN PLATELET VOLUME 11.5 FL (6.5-10.1); MONOCYTES % (AUTO) 12.1 % (1.0-10.0); NEUTROPHILS % (AUTO) 67.3 % (45.0-75.0); PLATELET COUNT 151 K/UL (150-450); RED BLOOD COUNT 4.23 M/UL (4.70-6.10); RED CELL DISTRIBUTION WIDTH 13.7 % (11.6-14.8); WHITE BLOOD COUNT 7.3 K/UL (4.8-10.8)
[2016-11-20 04:19] LABS: ANION GAP 14 (5-15); CALCIUM 8.7 mg/dL (8.6-10.2); CARBON DIOXIDE 24 mEQ/L (20-30); CHLORIDE 102 mEQ/L (98-107); CREATININE 1.2 mg/dL (0.7-1.2); GLOMERULAR FILTRATION RATE > 60 mL/min (>60); HEMOLYSIS 0; POTASSIUM 3.4 mEQ/L (3.4-4.9); SODIUM 140 mEQ/L (135-145)
[2016-11-20] MEDS ORDERED: Heparin 5000 units/ml inj IV ONE (04:45)
[2016-11-20] MEDS: Heparin 25,000u/D5W 500ml 500 ML IV SCH ×2 (04:50→14:49)
[2016-11-20 08:00] VITALS: BP 129/96
[2016-11-20] MEDS: Cefepime HCl 2 GM in D5W 110 ML IV SCH ×2 (09:40→20:18)
[2016-11-20 12:00] VITALS: BP 129/99
--- NOTE | 2016-11-20 12:05 | Pulmonology Progress Note ---
Assessment/Plan Problems: (1) Pulmonary embolism (2) Pleuritic chest pain (3) Aortic dissection Assessment/Plan checked echo, lv function ok, no comment about pulmonary pressure will start anticoagulation, ( Hem an vascular agreed), hemoptysis stopped needs w/u for occult malignancy. PSA WNL might go to med/surg if ok with cardiology start coumadin Subjective ROS Limited/Unobtainable: No Constitutional: Reports: no symptoms HEENT: Repors: no symptoms Respiratory: Reports: no symptoms Allergies: Coded Allergies: NO KNOWN DRUG ALLERGIES (Unverified Allergy, Unknown, 10/15/13) Objective Last 24 Hour Vital Signs Date Time Temp Pulse Resp B/P (MAP) Pulse Ox O2 Delivery O2 Flow Rate FiO2 11/20/16 10:40 67 18 Room Air 11/20/16 08:00 98.8 76 19 129/96 95 Room Air 11/20/16 08:00 68 11/20/16 04:00 97.2 78 18 126/80 96 Room Air 11/20/16 04:00 64 11/20/16 00:00 97.9 71 18 129/86 Room Air 11/20/16 00:00 64 11/19/16 20:00 73 11/19/16 20:00 98.1 70 18 138/76 95 Room Air 11/19/16 19:30 82 18 Room Air 21 11/19/16 16:00 64 11/19/16 15:35 98.6 80 20 136/76 96 Room Air Intake and Output 11/20/16 11/21/16 19:00 07:00 Intake Total 240 ml Balance 240 ml Intake Oral 240 ml Objective right chest pain better, no more hemoptysis General Appearance: WD/WN HEENT: normocephalic, atraumatic Respiratory/Chest: chest wall non-tender, lungs clear Cardiovascular: normal peripheral pulses, normal rate Abdomen: normal bowel sounds, soft, non tender Genitourinary: normal external genitalia Extremities: no cyanosis Skin: no rash Neurologic/Psychiatric: bulb inspector II-XII grossly normal Laboratory Tests 11/20/16 03:50: White Blood Count 7.3, Red Blood Count 4.23L, Hemoglobin 11.5L, Hematocrit 37.5L , Mean Corpuscular Volume 89, Mean Corpuscular Hemoglobin 27.2, Mean Corpuscular Hemoglobin Concent 30.7L, Red Cell Distribution Width 13.7, Platelet Count 151, Mean Platelet Volume 11.5H, Neutrophils (%) (Auto) 67.3, Lymphocytes (%) (Auto) 18.5L, Monocytes (%) (Auto) 12.1H, Eosinophils (%) (Auto ) 1.3, Basophils (%) (Auto) 0.8, Activated Partial Thromboplast Time 55H, Sodium Level 140, Potassium Level 3.4, Chloride Level 102, Carbon Dioxide Level 24, Anion Gap 14, Blood Urea Nitrogen 9, Creatinine 1.2, Estimat Glomerular Filtration Rate > 60, Glucose Level 101, Calcium Level 8.7 11/20/16 10:40: Activated Partial Thromboplast Time 72H Current Medications Medications (Trade) Dose Ordered Sig/Ata Route PRN Reason Start Time Stop Time Status Last Admin Dose Admin Acetaminophen (Tylenol) 650 mg Q4H PRN ORAL FEVER 11/18/16 19:00 12/16/16 18:59 Albuterol/ Ipratropium (DuoNeb 0.5-3(2.5)mg/3ml) 3 ml Q4H PRN HHN Shortness of Breath 11/18/16 19:00 11/23/16 18:59 Cefepime HCl 2 gm/ Dextrose 110 ml @ 220 mls/hr Q12HR IV 11/18/16 21:00 11/23/16 10:29 11/20/16 09:40 Dextrose (Dextrose 50%) STAT PRN IV Hypoglycemia 11/18/16 19:00 12/18/16 18:59 Heparin Sodium/ Dextrose 500 ml @ 23.224 mls/ hr adjust per protocol IV 11/20/16 04:45 12/20/16 04:44 11/20/16 04:50 Lorazepam (Ativan 2mg/ml 1ml) 2 mg Q2H PRN IV For Anxiety 11/18/16 19:00 11/25/16 18:59 Morphine Sulfate (Morphine Sulfate) 4 mg Q4H PRN IVP Severe Pain (Pain Scale 7-10) 11/18/16 21:00 11/25/16 20:59 Ondansetron HCl (Zofran) 4 mg Q6H PRN IVP Nausea & Vomiting 11/18/16 19:00 12/16/16 18:59 Polyethylene Glycol (Miralax) 17 gm DAILYPRN PRN ORAL Constipation 11/18/16 19:00 12/18/16 18:59 Sodium Chloride 1,000 ml @ 50 mls/hr Q20H IV 11/18/16 19:00 12/16/16 09:59 11/19/16 15:25 Vancomycin HCl (Vanco rx to dose) 1 ea DAILY PRN MISC RX TO DOSE 11/18/16 19:00 12/18/16 18:59 Vancomycin/Sodium Chloride 250 ml @ 166.667 mls/hr Q12HR@1100,2300 IVPB 11/18/16 23:00 11/23/16 22:59 11/19/16 22:23 VERONICA CHEUNG Nov 20, 2016 12:05
[2016-11-20] MEDS: Vancomycin 750mg/NS 250ml 250 ML IVPB SCH (12:57)
--- NOTE | 2016-11-20 13:02 | General Progress Note ---
Assessment/Plan Problem List: (1) Pneumonia ICD Codes: J18.9 - Pneumonia, unspecified organism SNOMED: 415904630 (2) Hemoptysis ICD Codes: R04.2 - Hemoptysis SNOMED: 49967969 Status: stable, progressing, tolerating diet Assessment/Plan o2 pulm tx abx ot pt diet cbc bmp am dc plan Subjective Constitutional: Reports: weakness Allergies: Coded Allergies: NO KNOWN DRUG ALLERGIES (Unverified Allergy, Unknown, 10/15/13) All Systems: reviewed and negative except above Subjective sleepy calm in bed Objective Last 24 Hour Vital Signs Date Time Temp Pulse Resp B/P (MAP) Pulse Ox O2 Delivery O2 Flow Rate FiO2 11/20/16 12:00 98.8 65 20 129/99 98 Room Air 11/20/16 10:40 67 18 Room Air 11/20/16 08:00 98.8 76 19 129/96 95 Room Air 11/20/16 08:00 68 11/20/16 04:00 97.2 78 18 126/80 96 Room Air 11/20/16 04:00 64 11/20/16 00:00 97.9 71 18 129/86 Room Air 11/20/16 00:00 64 11/19/16 20:00 73 11/19/16 20:00 98.1 70 18 138/76 95 Room Air 11/19/16 19:30 82 18 Room Air 21 11/19/16 16:00 64 11/19/16 15:35 98.6 80 20 136/76 96 Room Air Intake and Output 11/20/16 11/21/16 19:00 07:00 Intake Total 240 ml Output Total 175 ml Balance 65 ml Intake Oral 240 ml Output Urine Total 175 ml Laboratory Tests 11/20/16 03:50: White Blood Count 7.3, Red Blood Count 4.23L, Hemoglobin 11.5L, Hematocrit 37.5L , Mean Corpuscular Volume 89, Mean Corpuscular Hemoglobin 27.2, Mean Corpuscular Hemoglobin Concent 30.7L, Red Cell Distribution Width 13.7, Platelet Count 151, Mean Platelet Volume 11.5H, Neutrophils (%) (Auto) 67.3, Lymphocytes (%) (Auto) 18.5L, Monocytes (%) (Auto) 12.1H, Eosinophils (%) (Auto ) 1.3, Basophils (%) (Auto) 0.8, Activated Partial Thromboplast Time 55H, Sodium Level 140, Potassium Level 3.4, Chloride Level 102, Carbon Dioxide Level 24, Anion Gap 14, Blood Urea Nitrogen 9, Creatinine 1.2, Estimat Glomerular Filtration Rate > 60, Glucose Level 101, Calcium Level 8.7 11/20/16 10:40: Activated Partial Thromboplast Time 72H Height (Feet): 5 Height (Inches): 7.00 Weight (Pounds): 160 General Appearance: lethargic EENT: normal ENT inspection Neck: normal alignment Cardiovascular: normal peripheral pulses, normal rate, regular rhythm Respiratory/Chest: chest wall non-tender, lungs clear, normal breath sounds Abdomen: normal bowel sounds, non tender, soft Extremities: normal inspection Edema: no edema noted Arm (L), no edema noted Arm (R), no edema noted Leg (L), no edema noted Leg (R), no edema noted Pedal (L), no edema noted Pedal (R), no edema noted Generalized Neurologic: motor weakness Skin: normal pigmentation, warm/dry DARRYL DAMON Nov 20, 2016 13:02
--- NOTE | 2016-11-20 15:18 | Consultation ---
Consult Note Consult Note All noted; pt seen and examined earlier and labs/imaging reviewed. Full report to follow. Vascular exam notable for absent pedal pulses but no evidence of ulcer or gangrene. Abd soft, NT, ND. Assessment/Plan Pt with multiple vascular occlusive lesions noted on diagnostic work-up but appears mainly symptomatic from LE ischemic disabling claudication. Small AAA and chronic aortic dissection also noted but appear asymptomatic at this time. -- will obtain Duplex of leg arteries and carotids -- needs formal angio and possible intervention once medically stable and cleared for procedure. -- anticoagulation per hem. ZACH ALVAREZ Nov 20, 2016 15:18
--- NOTE | 2016-11-20 15:46 | Infectious Diseases Prog Note ---
Assessment/Plan Problems: (1) Pneumonia Assessment & Plan: improving on cefepime and vancomycin, CT chest confirmed RLL infiltrates , and PE, on full anticoagulation by hematology (2) Hemoptysis Assessment & Plan: due to massive PE, confirmed on CT chest , pulmonary is following (3) Chest pain Assessment & Plan: due to the above , rule out ACS, monitor trop, cardiology is following (4) Pulmonary embolism Assessment & Plan: on heparin drip, hematology and pulmonary is following (5) Aortic dissection Assessment & Plan: with thrombosis, and aneurysm, had vascular surgery eval , needs dopplers of the legs and carotid , with angiogram for possible surgical intervention . Subjective Constitutional: Reports: no symptoms HEENT: Reports: no symptoms Respiratory: Reports: productive cough Breasts: Reports: no symptoms Cardiovascular: Reports: chest pain Gastrointestinal/Abdominal: Reports: bloating Genitourinary: Reports: no symptoms Neurologic: Reports: no symptoms Psychiatric: Reports: no symptoms Skin: Reports: no symptoms Endocrine: Reports: no symptoms Hematologic: Reports: no symptoms Musculoskeletal: Reports: pain Allergies: Coded Allergies: NO KNOWN DRUG ALLERGIES (Unverified Allergy, Unknown, 10/15/13) Objective Vital Signs Last 24 Hour Vital Signs Date Time Temp Pulse Resp B/P (MAP) Pulse Ox O2 Delivery O2 Flow Rate FiO2 11/20/16 12:00 98.8 65 20 129/99 98 Room Air 11/20/16 12:00 60 11/20/16 10:40 67 18 Room Air 11/20/16 08:00 98.8 76 19 129/96 95 Room Air 11/20/16 08:00 68 11/20/16 04:00 97.2 78 18 126/80 96 Room Air 11/20/16 04:00 64 11/20/16 00:00 97.9 71 18 129/86 Room Air 11/20/16 00:00 64 11/19/16 20:00 73 11/19/16 20:00 98.1 70 18 138/76 95 Room Air 11/19/16 19:30 82 18 Room Air 21 11/19/16 16:00 64 Height (Feet): 5 Height (Inches): 7.00 Weight (Pounds): 160 General Appearance: WD/WN, no acute distress HEENT: normocephalic, atraumatic, anicteric, mucous membranes moist Respiratory/Chest: chest wall non-tender, no respiratory distress, no accessory muscle use, decreased breath sounds Cardiovascular: normal peripheral pulses, normal rate, regular rhythm, no gallop/murmur, no JVD Abdomen: normal bowel sounds, soft, non tender, no organomegaly, non distended , no mass, no scars Extremities: no cyanosis, no clubbing Skin: no rash, no lesions, no ulcers Neurologic/Psychiatric: alert, oriented x 3 Laboratory Tests Test 11/20/16 03:50 11/20/16 10:40 White Blood Count 7.3 K/UL (4.8-10.8) Red Blood Count 4.23 M/UL (4.70-6.10) L Hemoglobin 11.5 G/DL (14.2-18.0) L Hematocrit 37.5 % (42.0-52.0) L Mean Corpuscular Volume 89 FL (80-99) Mean Corpuscular Hemoglobin 27.2 PG (27.0-31.0) Mean Corpuscular Hemoglobin Concent 30.7 G/DL (32.0-36.0) L Red Cell Distribution Width 13.7 % (11.6-14.8) Platelet Count 151 K/UL (150-450) Mean Platelet Volume 11.5 FL (6.5-10.1) H Neutrophils (%) (Auto) 67.3 % (45.0-75.0) Lymphocytes (%) (Auto) 18.5 % (20.0-45.0) L Monocytes (%) (Auto) 12.1 % (1.0-10.0) H Eosinophils (%) (Auto) 1.3 % (0.0-3.0) Basophils (%) (Auto) 0.8 % (0.0-2.0) Activated Partial Thromboplast Time 55 SEC (23-33) H 72 SEC (23-33) H Sodium Level 140 mEQ/L (135-145) Potassium Level 3.4 mEQ/L (3.4-4.9) Chloride Level 102 mEQ/L (98-107) Carbon Dioxide Level 24 mEQ/L (20-30) Anion Gap 14 (5-15) Blood Urea Nitrogen 9 mg/dL (7-23) Creatinine 1.2 mg/dL (0.7-1.2) Estimat Glomerular Filtration Rate > 60 mL/min (>60) Glucose Level 101 mg/dL (74-106) Calcium Level 8.7 mg/dL (8.6-10.2) Current Medications Medications (Trade) Dose Ordered Sig/Ata Route PRN Reason Start Time Stop Time Status Last Admin Dose Admin Acetaminophen (Tylenol) 650 mg Q4H PRN ORAL FEVER 11/18/16 19:00 12/16/16 18:59 Albuterol/ Ipratropium (DuoNeb 0.5-3(2.5)mg/3ml) 3 ml Q4H PRN HHN Shortness of Breath 11/18/16 19:00 11/23/16 18:59 Cefepime HCl 2 gm/ Dextrose 110 ml @ 220 mls/hr Q12HR IV 11/18/16 21:00 11/23/16 10:29 11/20/16 09:40 Dextrose (Dextrose 50%) STAT PRN IV Hypoglycemia 11/18/16 19:00 12/18/16 18:59 Heparin Sodium/ Dextrose 500 ml @ 23.224 mls/ hr adjust per protocol IV 11/20/16 04:45 12/20/16 04:44 11/20/16 14:49 Lorazepam (Ativan 2mg/ml 1ml) 2 mg Q2H PRN IV For Anxiety 11/18/16 19:00 11/25/16 18:59 Morphine Sulfate (Morphine Sulfate) 4 mg Q4H PRN IVP Severe Pain (Pain Scale 7-10) 11/18/16 21:00 11/25/16 20:59 Ondansetron HCl (Zofran) 4 mg Q6H PRN IVP Nausea & Vomiting 11/18/16 19:00 12/16/16 18:59 Polyethylene Glycol (Miralax) 17 gm DAILYPRN PRN ORAL Constipation 11/18/16 19:00 12/18/16 18:59 Sodium Chloride 1,000 ml @ 50 mls/hr Q20H IV 11/18/16 19:00 12/16/16 09:59 11/20/16 12:57 Vancomycin HCl (Vanco rx to dose) 1 ea DAILY PRN MISC RX TO DOSE 11/18/16 19:00 12/18/16 18:59 Vancomycin/Sodium Chloride 250 ml @ 166.667 mls/hr Q12HR@1100,2300 IVPB 11/18/16 23:00 11/23/16 22:59 11/20/16 12:57 Warfarin Sodium (Coumadin per pharmacy) 1 ea DAILY PRN MISC Per rx protocol 11/20/16 12:15 12/20/16 12:14 Warfarin Sodium (Coumadin) 5 mg COUMADIN ORAL 11/20/16 17:00 11/20/16 17:01 Herman Ta M.D. Nov 20, 2016 15:46
[2016-11-20 16:00] VITALS: BP 129/95
[2016-11-20] MEDS ORDERED: Warfarin Sodium 5mg ORAL SCH (17:00)
[2016-11-20 20:00] VITALS: BP 132/101
--- NOTE | 2016-11-20 22:58 | General Progress Note ---
Assessment/Plan Assessment/Plan IMPRESSION: 1. Thrombocytopenia, multifactorial. --> Give plt transfusion if levels fall below 20k, currently WNL 2. Increased D-dimer, rule out deep venous thrombosis. 3. Hemoptysis, unknown origin. 4. Interstitial edema. 5. Pulmonary emboli. 6. Right lower lobe pneumonia. 7. Hemoptysis. 8. History of smoking. 9. Chronic obstructive pulmonary disease. 10. History of alcohol abuse. 11. Nicotine dependence. 12. Acute/chronic renal insufficiency. 13. Pleuritic chest pain. 14. Failure to thrive. RECOMMENDATIONS: 1. Packed red blood cell transfusion, p.r.n. based. 2. Platelet transfusion, p.r.n. based. 3. Watch count. 4. Watch coagulopathy. 5. Check tumor markers. 6. Venous Doppler of bilateral lower extremity to rule out deep venous thrombosis. 7. Pulmonary evaluation. 8. Antibiotic IV. 9. ID followup. 10. CT chest to rule out malignancy. 11. Skin care. 12. Nutrition. 13. Close followup. Subjective Date patient seen: Nov 20, 2016 Time patient seen: 06:00 Allergies: Coded Allergies: NO KNOWN DRUG ALLERGIES (Unverified Allergy, Unknown, 10/15/13) Subjective Patient in room. Calm. Comfortable. Afebrile. No distress. Pt sleeping. Objective Last 24 Hour Vital Signs Date Time Temp Pulse Resp B/P (MAP) Pulse Ox O2 Delivery O2 Flow Rate FiO2 11/20/16 21:32 75 18 Room Air 11/20/16 20:00 97.0 75 22 132/101 76 Room Air 11/20/16 16:00 67 11/20/16 16:00 98.1 65 18 129/95 96 Room Air 11/20/16 12:00 98.8 65 20 129/99 98 Room Air 11/20/16 12:00 60 11/20/16 10:40 67 18 Room Air 11/20/16 08:00 98.8 76 19 129/96 95 Room Air 11/20/16 08:00 68 11/20/16 04:00 97.2 78 18 126/80 96 Room Air 11/20/16 04:00 64 11/20/16 00:00 97.9 71 18 129/86 Room Air 11/20/16 00:00 64 Intake and Output 11/20/16 11/21/16 19:00 07:00 Intake Total 953.334 ml 120 ml Output Total 175 ml 400 ml Balance 778.334 ml -280 ml Intake Oral 360 ml 120 ml IV Total 593.334 ml Output Urine Total 175 ml 400 ml # Voids 1 Laboratory Tests 11/20/16 03:50: White Blood Count 7.3, Red Blood Count 4.23L, Hemoglobin 11.5L, Hematocrit 37.5L , Mean Corpuscular Volume 89, Mean Corpuscular Hemoglobin 27.2, Mean Corpuscular Hemoglobin Concent 30.7L, Red Cell Distribution Width 13.7, Platelet Count 151, Mean Platelet Volume 11.5H, Neutrophils (%) (Auto) 67.3, Lymphocytes (%) (Auto) 18.5L, Monocytes (%) (Auto) 12.1H, Eosinophils (%) (Auto ) 1.3, Basophils (%) (Auto) 0.8, Activated Partial Thromboplast Time 55H, Sodium Level 140, Potassium Level 3.4, Chloride Level 102, Carbon Dioxide Level 24, Anion Gap 14, Blood Urea Nitrogen 9, Creatinine 1.2, Estimat Glomerular Filtration Rate > 60, Glucose Level 101, Calcium Level 8.7 11/20/16 10:40: Activated Partial Thromboplast Time 72H Height (Feet): 5 Height (Inches): 7.00 Weight (Pounds): 160 General Appearance: no apparent distress Cardiovascular: normal rate, regular rhythm Respiratory/Chest: lungs clear, normal breath sounds Abdomen: normal bowel sounds GAYLE VIZCARRA Nov 20, 2016 22:58
[2016-11-21] VITALS: BP_SYST 107; BP_SYST 141; BP_DIAS 62; BP_DIAS 73
[2016-11-21] MEDS: Vancomycin 750mg/NS 250ml 250 ML IVPB SCH ×3 (00:48→23:18)
[2016-11-21 04:00] VITALS: BP 117/91
[2016-11-21 05:01] LABS: BASOPHILS % (AUTO) 1.2 % (0.0-2.0); EOSINOPHILS % (AUTO) 1.9 % (0.0-3.0); MEAN CORPUSCULAR HEMOGLOBIN 27.5 PG (27.0-31.0); MEAN CORPUSCULAR HGB CONC 31.2 G/DL (32.0-36.0); MEAN CORPUSCULAR VOLUME 88 FL (80-99); MEAN PLATELET VOLUME 10.9 FL (6.5-10.1); MONOCYTES % (AUTO) 16.3 % (1.0-10.0); NEUTROPHILS % (AUTO) 64.7 % (45.0-75.0); PLATELET COUNT 149 K/UL (150-450); RED CELL DISTRIBUTION WIDTH 13.9 % (11.6-14.8); WHITE BLOOD COUNT 5.6 K/UL (4.8-10.8)
[2016-11-21 05:05] LABS: PROTHROMBIN TIME 10.6 SEC (9.30-11.50)
[2016-11-21 05:37] LABS: ANION GAP 11 (5-15); CALCIUM 8.4 mg/dL (8.6-10.2); CARBON DIOXIDE 24 mEQ/L (20-30); CHLORIDE 103 mEQ/L (98-107); CREATININE 1.2 mg/dL (0.7-1.2); GLOMERULAR FILTRATION RATE > 60 mL/min (>60); HEMOLYSIS 0; POTASSIUM 3.4 mEQ/L (3.4-4.9); SODIUM 138 mEQ/L (135-145)
[2016-11-21 07:53] VITALS: BP 133/97
[2016-11-21] MEDS: Cefepime HCl 2 GM in D5W 110 ML IV SCH ×2 (08:41→20:23)
[2016-11-21 11:56] VITALS: BP 133/94
--- NOTE | 2016-11-21 12:01 | General Progress Note ---
Assessment/Plan Problem List: (1) Pneumonia ICD Codes: J18.9 - Pneumonia, unspecified organism SNOMED: 006656935 (2) Hemoptysis ICD Codes: R04.2 - Hemoptysis SNOMED: 20389307 Status: stable, progressing, tolerating diet Assessment/Plan o2 pulm tx abx ot pt diet cbc bmp am dc plan Subjective Constitutional: Reports: weakness Allergies: Coded Allergies: NO KNOWN DRUG ALLERGIES (Unverified Allergy, Unknown, 10/15/13) All Systems: reviewed and negative except above Subjective sleepy calm in bed Objective Last 24 Hour Vital Signs Date Time Temp Pulse Resp B/P (MAP) Pulse Ox O2 Delivery O2 Flow Rate FiO2 11/21/16 11:56 97.7 69 19 133/94 19 Room Air 11/21/16 07:53 97.7 78 18 133/97 100 Room Air 11/21/16 07:51 72 18 Room Air 11/21/16 04:00 67 11/21/16 04:00 98.4 72 20 117/91 96 Room Air 11/21/16 00:00 71 11/21/16 00:00 97.2 78 23 141/73 95 Room Air 11/20/16 21:32 75 18 Room Air 11/20/16 20:00 71 11/20/16 20:00 97.0 75 22 132/101 76 Room Air 11/20/16 16:00 67 11/20/16 16:00 98.1 65 18 129/95 96 Room Air Laboratory Tests 11/21/16 04:00: White Blood Count 5.6, Red Blood Count 4.00L, Hemoglobin 11.0L, Hematocrit 35.2L , Mean Corpuscular Volume 88, Mean Corpuscular Hemoglobin 27.5, Mean Corpuscular Hemoglobin Concent 31.2L, Red Cell Distribution Width 13.9, Platelet Count 149L, Mean Platelet Volume 10.9H, Neutrophils (%) (Auto) 64.7, Lymphocytes (%) (Auto) 16.0L, Monocytes (%) (Auto) 16.3H, Eosinophils (%) (Auto ) 1.9, Basophils (%) (Auto) 1.2, Prothrombin Time 10.6, Prothromb Time International Ratio 1.0, Activated Partial Thromboplast Time 65H, Sodium Level 138, Potassium Level 3.4, Chloride Level 103, Carbon Dioxide Level 24, Anion Gap 11, Blood Urea Nitrogen 8, Creatinine 1.2, Estimat Glomerular Filtration Rate > 60, Glucose Level 112H, Calcium Level 8.4L Height (Feet): 5 Height (Inches): 7.00 Weight (Pounds): 160 General Appearance: lethargic EENT: normal ENT inspection Neck: normal alignment Cardiovascular: normal peripheral pulses, normal rate, regular rhythm Respiratory/Chest: chest wall non-tender, lungs clear, normal breath sounds Abdomen: normal bowel sounds, non tender, soft Extremities: normal inspection Edema: no edema noted Arm (L), no edema noted Arm (R), no edema noted Leg (L), no edema noted Leg (R), no edema noted Pedal (L), no edema noted Pedal (R), no edema noted Generalized Neurologic: responsive, motor weakness Skin: normal pigmentation, warm/dry DARRYL DAMON Nov 21, 2016 12:01
--- NOTE | 2016-11-21 12:15 | Pulmonology Progress Note ---
Assessment/Plan Problems: (1) Pulmonary embolism (2) Pleuritic chest pain (3) Aortic dissection Assessment/Plan checked echo, lv function ok, no comment about pulmonary pressure will start anticoagulation, ( Hem an vascular agreed), hemoptysis stopped needs w/u for occult malignancy. PSA WNL might go to med/surg if ok with cardiology start coumadin check INR daily med/surg Subjective ROS Limited/Unobtainable: No Constitutional: Reports: no symptoms HEENT: Repors: no symptoms Respiratory: Reports: no symptoms Allergies: Coded Allergies: NO KNOWN DRUG ALLERGIES (Unverified Allergy, Unknown, 10/15/13) Objective Last 24 Hour Vital Signs Date Time Temp Pulse Resp B/P (MAP) Pulse Ox O2 Delivery O2 Flow Rate FiO2 11/21/16 11:56 97.7 69 19 133/94 19 Room Air 11/21/16 07:53 97.7 78 18 133/97 100 Room Air 11/21/16 07:51 72 18 Room Air 11/21/16 04:00 67 11/21/16 04:00 98.4 72 20 117/91 96 Room Air 11/21/16 00:00 71 11/21/16 00:00 97.2 78 23 141/73 95 Room Air 11/20/16 21:32 75 18 Room Air 11/20/16 20:00 71 11/20/16 20:00 97.0 75 22 132/101 76 Room Air 11/20/16 16:00 67 11/20/16 16:00 98.1 65 18 129/95 96 Room Air Objective right chest pain better, no more hemoptysis Laboratory Tests 11/21/16 04:00: White Blood Count 5.6, Red Blood Count 4.00L, Hemoglobin 11.0L, Hematocrit 35.2L , Mean Corpuscular Volume 88, Mean Corpuscular Hemoglobin 27.5, Mean Corpuscular Hemoglobin Concent 31.2L, Red Cell Distribution Width 13.9, Platelet Count 149L, Mean Platelet Volume 10.9H, Neutrophils (%) (Auto) 64.7, Lymphocytes (%) (Auto) 16.0L, Monocytes (%) (Auto) 16.3H, Eosinophils (%) (Auto ) 1.9, Basophils (%) (Auto) 1.2, Prothrombin Time 10.6, Prothromb Time International Ratio 1.0, Activated Partial Thromboplast Time 65H, Sodium Level 138, Potassium Level 3.4, Chloride Level 103, Carbon Dioxide Level 24, Anion Gap 11, Blood Urea Nitrogen 8, Creatinine 1.2, Estimat Glomerular Filtration Rate > 60, Glucose Level 112H, Calcium Level 8.4L Current Medications Medications (Trade) Dose Ordered Sig/Ata Route PRN Reason Start Time Stop Time Status Last Admin Dose Admin Acetaminophen (Tylenol) 650 mg Q4H PRN ORAL FEVER 11/18/16 19:00 12/16/16 18:59 Albuterol/ Ipratropium (DuoNeb 0.5-3(2.5)mg/3ml) 3 ml Q4H PRN HHN Shortness of Breath 11/18/16 19:00 11/23/16 18:59 Cefepime HCl 2 gm/ Dextrose 110 ml @ 220 mls/hr Q12HR IV 11/18/16 21:00 11/23/16 10:29 11/21/16 08:41 Dextrose (Dextrose 50%) STAT PRN IV Hypoglycemia 11/18/16 19:00 12/18/16 18:59 Heparin Sodium/ Dextrose 500 ml @ 23.224 mls/ hr adjust per protocol IV 11/20/16 04:45 12/20/16 04:44 11/20/16 14:49 Lorazepam (Ativan 2mg/ml 1ml) 2 mg Q2H PRN IV For Anxiety 11/18/16 19:00 11/25/16 18:59 Morphine Sulfate (Morphine Sulfate) 4 mg Q4H PRN IVP Severe Pain (Pain Scale 7-10) 11/18/16 21:00 11/25/16 20:59 Ondansetron HCl (Zofran) 4 mg Q6H PRN IVP Nausea & Vomiting 11/18/16 19:00 12/16/16 18:59 Polyethylene Glycol (Miralax) 17 gm DAILYPRN PRN ORAL Constipation 11/18/16 19:00 12/18/16 18:59 Sodium Chloride 1,000 ml @ 50 mls/hr Q20H IV 11/18/16 19:00 12/16/16 09:59 11/21/16 06:32 Vancomycin HCl (Vanco rx to dose) 1 ea DAILY PRN MISC RX TO DOSE 11/18/16 19:00 12/18/16 18:59 Vancomycin/Sodium Chloride 250 ml @ 166.667 mls/hr Q12HR@1100,2300 IVPB 11/18/16 23:00 11/23/16 22:59 11/21/16 11:57 Warfarin Sodium (Coumadin per pharmacy) 1 ea DAILY PRN MISC Per rx protocol 11/20/16 12:15 12/20/16 12:14 Warfarin Sodium (Coumadin) 6 mg COUMADIN ORAL 11/21/16 17:00 11/21/16 17:01 VERONICA CHEUNG Nov 21, 2016 12:15
[2016-11-21] MEDS: Heparin 25,000u/D5W 500ml 500 ML IV SCH (12:39)
[2016-11-21 16:10] VITALS: BP 137/98
[2016-11-21] MEDS ORDERED: Warfarin Sodium 3mg ORAL SCH (17:00)
--- NOTE | 2016-11-21 17:46 | Infectious Diseases Prog Note ---
Assessment/Plan Problems: (1) Pneumonia Assessment & Plan: improving on cefepime and vancomycin, CT chest confirmed RLL infiltrates , and PE, on full anticoagulation by hematology (2) Hemoptysis Assessment & Plan: due to massive PE, confirmed on CT chest , pulmonary is following (3) Chest pain Assessment & Plan: due to the above , rule out ACS, monitor trop, cardiology is following (4) Pulmonary embolism Assessment & Plan: on heparin drip, hematology and pulmonary is following (5) Aortic dissection Assessment & Plan: with thrombosis, and aneurysm, had vascular surgery eval , needs dopplers of the legs and carotid , with angiogram for possible surgical intervention . Subjective Respiratory: Reports: productive cough Allergies: Coded Allergies: NO KNOWN DRUG ALLERGIES (Unverified Allergy, Unknown, 10/15/13) Objective Vital Signs Last 24 Hour Vital Signs Date Time Temp Pulse Resp B/P (MAP) Pulse Ox O2 Delivery O2 Flow Rate FiO2 11/21/16 16:10 97.9 69 18 137/98 98 Room Air 11/21/16 16:00 72 11/21/16 12:00 66 11/21/16 11:56 97.7 69 19 133/94 19 Room Air 11/21/16 08:00 72 11/21/16 07:53 97.7 78 18 133/97 100 Room Air 11/21/16 07:51 72 18 Room Air 11/21/16 04:00 67 11/21/16 04:00 98.4 72 20 117/91 96 Room Air 11/21/16 00:00 71 11/21/16 00:00 97.2 78 23 141/73 95 Room Air 11/20/16 21:32 75 18 Room Air 11/20/16 20:00 71 11/20/16 20:00 97.0 75 22 132/101 76 Room Air Height (Feet): 5 Height (Inches): 7.00 Weight (Pounds): 160 General Appearance: WD/WN, no acute distress HEENT: normocephalic, anicteric Respiratory/Chest: chest wall non-tender, normal breath sounds, no respiratory distress, no accessory muscle use Cardiovascular: normal peripheral pulses, normal rate, regular rhythm, no gallop/murmur, no JVD Abdomen: soft, non tender, no organomegaly, non distended, no mass Extremities: no cyanosis, no clubbing Skin: no rash, no lesions, no ulcers Laboratory Tests Test 11/21/16 04:00 White Blood Count 5.6 K/UL (4.8-10.8) Red Blood Count 4.00 M/UL (4.70-6.10) L Hemoglobin 11.0 G/DL (14.2-18.0) L Hematocrit 35.2 % (42.0-52.0) L Mean Corpuscular Volume 88 FL (80-99) Mean Corpuscular Hemoglobin 27.5 PG (27.0-31.0) Mean Corpuscular Hemoglobin Concent 31.2 G/DL (32.0-36.0) L Red Cell Distribution Width 13.9 % (11.6-14.8) Platelet Count 149 K/UL (150-450) L Mean Platelet Volume 10.9 FL (6.5-10.1) H Neutrophils (%) (Auto) 64.7 % (45.0-75.0) Lymphocytes (%) (Auto) 16.0 % (20.0-45.0) L Monocytes (%) (Auto) 16.3 % (1.0-10.0) H Eosinophils (%) (Auto) 1.9 % (0.0-3.0) Basophils (%) (Auto) 1.2 % (0.0-2.0) Prothrombin Time 10.6 SEC (9.30-11.50) Prothromb Time International Ratio 1.0 (0.9-1.1) Activated Partial Thromboplast Time 65 SEC (23-33) H Sodium Level 138 mEQ/L (135-145) Potassium Level 3.4 mEQ/L (3.4-4.9) Chloride Level 103 mEQ/L (98-107) Carbon Dioxide Level 24 mEQ/L (20-30) Anion Gap 11 (5-15) Blood Urea Nitrogen 8 mg/dL (7-23) Creatinine 1.2 mg/dL (0.7-1.2) Estimat Glomerular Filtration Rate > 60 mL/min (>60) Glucose Level 112 mg/dL (74-106) H Calcium Level 8.4 mg/dL (8.6-10.2) L Current Medications Medications (Trade) Dose Ordered Sig/Ata Route PRN Reason Start Time Stop Time Status Last Admin Dose Admin Acetaminophen (Tylenol) 650 mg Q4H PRN ORAL FEVER 11/18/16 19:00 12/16/16 18:59 Albuterol/ Ipratropium (DuoNeb 0.5-3(2.5)mg/3ml) 3 ml Q4H PRN HHN Shortness of Breath 11/18/16 19:00 11/23/16 18:59 Cefepime HCl 2 gm/ Dextrose 110 ml @ 220 mls/hr Q12HR IV 11/18/16 21:00 11/23/16 10:29 11/21/16 08:41 Dextrose (Dextrose 50%) STAT PRN IV Hypoglycemia 11/18/16 19:00 12/18/16 18:59 Heparin Sodium/ Dextrose 500 ml @ 23.224 mls/ hr adjust per protocol IV 11/20/16 04:45 12/20/16 04:44 11/21/16 12:39 Lorazepam (Ativan 2mg/ml 1ml) 2 mg Q2H PRN IV For Anxiety 11/18/16 19:00 11/25/16 18:59 Morphine Sulfate (Morphine Sulfate) 4 mg Q4H PRN IVP Severe Pain (Pain Scale 7-10) 11/18/16 21:00 11/25/16 20:59 Ondansetron HCl (Zofran) 4 mg Q6H PRN IVP Nausea & Vomiting 11/18/16 19:00 12/16/16 18:59 Polyethylene Glycol (Miralax) 17 gm DAILYPRN PRN ORAL Constipation 11/18/16 19:00 12/18/16 18:59 Sodium Chloride 1,000 ml @ 50 mls/hr Q20H IV 11/18/16 19:00 12/16/16 09:59 11/21/16 06:32 Vancomycin HCl (Vanco rx to dose) 1 ea DAILY PRN MISC RX TO DOSE 11/18/16 19:00 12/18/16 18:59 Vancomycin/Sodium Chloride 250 ml @ 166.667 mls/hr Q12HR@1100,2300 IVPB 11/18/16 23:00 11/23/16 22:59 11/21/16 11:57 Warfarin Sodium (Coumadin per pharmacy) 1 ea DAILY PRN MISC Per rx protocol 11/20/16 12:15 12/20/16 12:14 Herman Ta M.D. Nov 21, 2016 17:46
[2016-11-21 20:00] VITALS: BP 134/88
--- NOTE | 2016-11-21 23:20 | General Progress Note ---
Assessment/Plan Status: unchanged Assessment/Plan IMPRESSION: 1. Thrombocytopenia, multifactorial. --> Give plt transfusion if levels fall below 20k, currently WNL 2. Increased D-dimer, rule out deep venous thrombosis. 3. Hemoptysis, unknown origin. 4. Interstitial edema. 5. Pulmonary emboli. 6. Right lower lobe pneumonia. 7. Hemoptysis. 8. History of smoking. 9. Chronic obstructive pulmonary disease. 10. History of alcohol abuse. 11. Nicotine dependence. 12. Acute/chronic renal insufficiency. 13. Pleuritic chest pain. 14. Failure to thrive. RECOMMENDATIONS: 1. Packed red blood cell transfusion, p.r.n. based. 2. Platelet transfusion, p.r.n. based. 3. Watch count. 4. Watch coagulopathy. 5. Check tumor markers. 6. Venous Doppler of bilateral lower extremity to rule out deep venous thrombosis. 7. Pulmonary evaluation. 8. Antibiotic IV. 9. ID followup. 10. CT chest to rule out malignancy. 11. Skin care. 12. Nutrition. 13. Close followup. Subjective Date patient seen: Nov 21, 2016 Time patient seen: 06:00 Hematologic/Lymphatic: Reports: other Allergies: Coded Allergies: NO KNOWN DRUG ALLERGIES (Unverified Allergy, Unknown, 10/15/13) Subjective Patient in room. Calm. Comfortable. Afebrile. No distress. Pt sleeping. Hemoglobin stable. Objective Last 24 Hour Vital Signs Date Time Temp Pulse Resp B/P (MAP) Pulse Ox O2 Delivery O2 Flow Rate FiO2 11/21/16 20:03 67 18 Room Air 11/21/16 20:00 72 11/21/16 20:00 100.0 81 21 134/88 97 Room Air 11/21/16 16:10 97.9 69 18 137/98 98 Room Air 11/21/16 16:00 72 11/21/16 12:00 66 11/21/16 11:56 97.7 69 19 133/94 19 Room Air 11/21/16 08:00 72 11/21/16 07:53 97.7 78 18 133/97 100 Room Air 11/21/16 07:51 72 18 Room Air 11/21/16 04:00 67 11/21/16 04:00 98.4 72 20 117/91 96 Room Air 11/21/16 00:00 71 11/21/16 00:00 97.2 78 23 141/73 95 Room Air Laboratory Tests 11/21/16 04:00: White Blood Count 5.6, Red Blood Count 4.00L, Hemoglobin 11.0L, Hematocrit 35.2L , Mean Corpuscular Volume 88, Mean Corpuscular Hemoglobin 27.5, Mean Corpuscular Hemoglobin Concent 31.2L, Red Cell Distribution Width 13.9, Platelet Count 149L, Mean Platelet Volume 10.9H, Neutrophils (%) (Auto) 64.7, Lymphocytes (%) (Auto) 16.0L, Monocytes (%) (Auto) 16.3H, Eosinophils (%) (Auto ) 1.9, Basophils (%) (Auto) 1.2, Prothrombin Time 10.6, Prothromb Time International Ratio 1.0, Activated Partial Thromboplast Time 65H, Sodium Level 138, Potassium Level 3.4, Chloride Level 103, Carbon Dioxide Level 24, Anion Gap 11, Blood Urea Nitrogen 8, Creatinine 1.2, Estimat Glomerular Filtration Rate > 60, Glucose Level 112H, Calcium Level 8.4L Height (Feet): 5 Height (Inches): 7.00 Weight (Pounds): 160 General Appearance: lethargic Neck: normal alignment, supple Cardiovascular: normal rate, regular rhythm Respiratory/Chest: lungs clear, decreased breath sounds Abdomen: normal bowel sounds, non tender GAYLE VIZCARRA Nov 21, 2016 23:20
[2016-11-22] VITALS (7 sets, daily range): BP systolic 116–165; BP diastolic 77–116
[2016-11-22 05:11] LABS: ANION GAP 14 (5-15); BASOPHILS % (AUTO) 1.6 % (0.0-2.0); CALCIUM 8.6 mg/dL (8.6-10.2); CARBON DIOXIDE 23 mEQ/L (20-30); CHLORIDE 102 mEQ/L (98-107); CREATININE 1.2 mg/dL (0.7-1.2); GLOMERULAR FILTRATION RATE > 60 mL/min (>60); HEMOLYSIS 4; LYMPHOCYTES % (AUTO) 17.6 % (20.0-45.0); MEAN CORPUSCULAR HEMOGLOBIN 27.7 PG (27.0-31.0); MEAN CORPUSCULAR HGB CONC 32.1 G/DL (32.0-36.0); MEAN CORPUSCULAR VOLUME 86 FL (80-99); MEAN PLATELET VOLUME 11.5 FL (6.5-10.1); MONOCYTES % (AUTO) 17.4 % (1.0-10.0); NEUTROPHILS % (AUTO) 60.5 % (45.0-75.0); PLATELET COUNT 152 K/UL (150-450); POTASSIUM 3.3 mEQ/L (3.4-4.9); RED BLOOD COUNT 3.93 M/UL (4.70-6.10); SODIUM 139 mEQ/L (135-145); WHITE BLOOD COUNT 5.2 K/UL (4.8-10.8)
[2016-11-22 05:45] LABS: INR 1.1 (0.9-1.1); PROTHROMBIN TIME 11.4 SEC (9.30-11.50)
[2016-11-22] MEDS: Cefepime HCl 2 GM in D5W 110 ML IV SCH ×2 (08:59→20:14)
--- NOTE | 2016-11-22 09:39 | Diagnostic Imaging Report ---
APPROVED REPORT CPT Code: 46412 Vascular Symptoms Comments: R/O occlusion Doppler Spectral Velocity Analysis RightLeft BILATERAL: CCA/BULB - Imaging reveals irregular, minimal plaque in the right carotid bulb plaque in the internal and external carotid arteries. The Doppler spectral flow analysis is within normal limits throughout the internal and external carotid arteries. VERTEBRALS - Imaging reveals both vertebral arteries to be patent, without evidence of stenosis or steal
--- NOTE | 2016-11-22 09:39 | Diagnostic Imaging Report ---
APPROVED REPORT CPT Code: 53864 Symptoms Other : Aortic aneurysm Risk Factors Smoking: Velocities BrachialRadialUlnarSubcl.Axillary Right31 cm/sec13 cm/sec17 cm/sec57 cm/sec34 cm/sec Left96 cm/sec75 cm/sec61 cm/sec83 cm/sec85 cm/sec RIGHT UPPER EXTREMITY: Color flow duplex sonography reveals patency of the subclavian, axillary, brachial, radial and ulnar arteries. There is no evidence of stenosis or occlusion within these segments. However, the Doppler waveform analysis shows diminished velocities from the mid to distal subclavian artery distally, compatible with moderate to severe ischemia. LEFT UPPER EXTREMITY: Imaging of the subclavian, axillary, brachial, radial and ulnar arteries is within normal limits. There is no evidence of stenosis or occlusion within these segments. The Doppler waveforms of the left upper extremity are multiphasic, consistent with normal inflow to the left upper extremity.
--- NOTE | 2016-11-22 09:39 | Diagnostic Imaging Report ---
APPROVED REPORT CPT Code: 56611 Symptoms Comments: Aortic aneurysm RIGHT LEG: Color flow duplex sonography reveals occlusion in the common femoral artery to the distal superficial femoral artery. Reconstitution is noted distally at the level of the adductor canal. Another occlusion is noted at the proximal popliteal artery. The distal popliteal artery is patent. The tibioperoneal trunk was not well visualized. The dorsalis pedis artery was also not well visualized. Doppler from posterior tibial, and anterior tibial artery waveform analysis is monophasic, consistent with critical ischemia at rest. 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 Color flow duplex sonography reveals occlusion in the proximal femoral artery to the popliteal artery. The tibioperoneal trunk was not well visualized. The posterior tibial artery and dorsalis pedis artery were also occluded. Some collateral flow noted around the calf area. ABUNDIO Mg was notified of abnormal results at 1650 hours.
--- NOTE | 2016-11-22 09:52 | General Progress Note ---
Progress Note Progress Note All noted; vascular non-invasive studies reviewed. Clinical vascular status quo. -- will plan angio as outpt to further assess LE AOD and options for potential revascularization -- needs preop medical optimization/clearance -- anticoagulation/hypercoagulable state w/u per hem/onc. -- antiplatelet/statins per PMD -- pt advised of necessity to stop smoking Discussed with team, pt, family. ZACH ALVAREZ Nov 22, 2016 09:52
[2016-11-22] MEDS: Vancomycin 750mg/NS 250ml 250 ML IVPB SCH (11:20)
--- NOTE | 2016-11-22 12:12 | Pulmonology Progress Note ---
Assessment/Plan Problems: (1) Pulmonary embolism (2) Pleuritic chest pain (3) Aortic dissection Assessment/Plan checked echo, lv function ok, no comment about pulmonary pressure on heparin and coumadin check INR daily dc when Inr between 2 and 3 Subjective ROS Limited/Unobtainable: No Constitutional: Reports: no symptoms Respiratory: Reports: no symptoms Allergies: Coded Allergies: NO KNOWN DRUG ALLERGIES (Unverified Allergy, Unknown, 10/15/13) Objective Last 24 Hour Vital Signs Date Time Temp Pulse Resp B/P (MAP) Pulse Ox O2 Delivery O2 Flow Rate FiO2 11/22/16 08:00 97.4 71 21 116/77 95 Room Air 11/22/16 08:00 69 11/22/16 06:45 71 17 Room Air 11/22/16 04:00 69 11/22/16 04:00 98.1 80 20 122/80 99 Room Air 11/22/16 00:00 72 11/22/16 00:00 97.9 72 21 127/84 95 Room Air 21 11/22/16 00:00 97.9 72 21 95 Room Air 11/22/16 00:00 97.9 72 21 127/84 95 Room Air 11/21/16 20:03 67 18 Room Air 11/21/16 20:00 72 11/21/16 20:00 100.0 81 21 134/88 97 Room Air 11/21/16 16:10 97.9 69 18 137/98 98 Room Air 11/21/16 16:00 72 Objective right chest pain better, no more hemoptysis General Appearance: WD/WN HEENT: normocephalic, atraumatic Respiratory/Chest: chest wall non-tender, lungs clear Cardiovascular: normal peripheral pulses, normal rate Abdomen: normal bowel sounds, soft, non tender Genitourinary: normal external genitalia Skin: no rash Laboratory Tests 11/22/16 04:05: White Blood Count 5.2, Red Blood Count 3.93L, Hemoglobin 10.9L, Hematocrit 33.9L , Mean Corpuscular Volume 86, Mean Corpuscular Hemoglobin 27.7, Mean Corpuscular Hemoglobin Concent 32.1, Red Cell Distribution Width 14.0, Platelet Count 152, Mean Platelet Volume 11.5H, Neutrophils (%) (Auto) 60.5, Lymphocytes (%) (Auto) 17.6L, Monocytes (%) (Auto) 17.4H, Eosinophils (%) (Auto) 3.0, Basophils (%) (Auto) 1.6, Prothrombin Time 11.4, Prothromb Time International Ratio 1.1, Activated Partial Thromboplast Time 69H, Sodium Level 139, Potassium Level 3.3L, Chloride Level 102, Carbon Dioxide Level 23, Anion Gap 14, Blood Urea Nitrogen 8, Creatinine 1.2, Estimat Glomerular Filtration Rate > 60, Glucose Level 95, Calcium Level 8.6 11/22/16 10:10: Vancomycin Level Trough 23.0H Current Medications Medications (Trade) Dose Ordered Sig/Ata Route PRN Reason Start Time Stop Time Status Last Admin Dose Admin Acetaminophen (Tylenol) 650 mg Q4H PRN ORAL FEVER 11/18/16 19:00 12/16/16 18:59 Albuterol/ Ipratropium (DuoNeb 0.5-3(2.5)mg/3ml) 3 ml Q4H PRN HHN Shortness of Breath 11/18/16 19:00 11/23/16 18:59 Cefepime HCl 2 gm/ Dextrose 110 ml @ 220 mls/hr Q12HR IV 11/18/16 21:00 11/23/16 10:29 11/22/16 08:59 Dextrose (Dextrose 50%) STAT PRN IV Hypoglycemia 11/18/16 19:00 12/18/16 18:59 Heparin Sodium/ Dextrose 500 ml @ 23.224 mls/ hr adjust per protocol IV 11/20/16 04:45 12/20/16 04:44 11/21/16 12:39 Lorazepam (Ativan 2mg/ml 1ml) 2 mg Q2H PRN IV For Anxiety 11/18/16 19:00 11/25/16 18:59 Morphine Sulfate (Morphine Sulfate) 4 mg Q4H PRN IVP Severe Pain (Pain Scale 7-10) 11/18/16 21:00 11/25/16 20:59 Ondansetron HCl (Zofran) 4 mg Q6H PRN IVP Nausea & Vomiting 11/18/16 19:00 12/16/16 18:59 Polyethylene Glycol (Miralax) 17 gm DAILYPRN PRN ORAL Constipation 11/18/16 19:00 12/18/16 18:59 Sodium Chloride 1,000 ml @ 50 mls/hr Q20H IV 11/18/16 19:00 12/16/16 09:59 11/21/16 20:24 Vancomycin HCl (Vanco rx to dose) 1 ea DAILY PRN MISC RX TO DOSE 11/18/16 19:00 12/18/16 18:59 Vancomycin/Sodium Chloride 250 ml @ 166.667 mls/hr Q12HR@1100,2300 IVPB 11/18/16 23:00 11/23/16 22:59 11/22/16 11:20 Warfarin Sodium (Coumadin per pharmacy) 1 ea DAILY PRN MISC Per rx protocol 11/20/16 12:15 12/20/16 12:14 Warfarin Sodium (Coumadin) 7.5 mg COUMADIN ONCE ORAL 11/22/16 17:00 11/22/16 17:01 VERONICA CHEUNG Nov 22, 2016 12:12
[2016-11-22] MEDS: Heparin 25,000u/D5W 500ml 500 ML IV SCH (12:47)
--- NOTE | 2016-11-22 13:08 | General Progress Note ---
Assessment/Plan Problem List: (1) Pneumonia ICD Codes: J18.9 - Pneumonia, unspecified organism SNOMED: 138491473 (2) Hemoptysis ICD Codes: R04.2 - Hemoptysis SNOMED: 33846597 Status: stable, progressing, tolerating diet Assessment/Plan o2 pulm tx abx ot pt diet cbc bmp am dc plan pending therapeutic anticaog Subjective Constitutional: Reports: weakness Allergies: Coded Allergies: NO KNOWN DRUG ALLERGIES (Unverified Allergy, Unknown, 10/15/13) All Systems: reviewed and negative except above Subjective sleepy calm in bed Objective Last 24 Hour Vital Signs Date Time Temp Pulse Resp B/P (MAP) Pulse Ox O2 Delivery O2 Flow Rate FiO2 11/22/16 12:00 97.4 71 21 138/95 99 Room Air 11/22/16 08:00 97.4 71 21 116/77 95 Room Air 11/22/16 08:00 69 11/22/16 06:45 71 17 Room Air 11/22/16 04:00 69 11/22/16 04:00 98.1 80 20 122/80 99 Room Air 11/22/16 00:00 72 11/22/16 00:00 97.9 72 21 127/84 95 Room Air 21 11/22/16 00:00 97.9 72 21 95 Room Air 11/22/16 00:00 97.9 72 21 127/84 95 Room Air 11/21/16 20:03 67 18 Room Air 11/21/16 20:00 72 11/21/16 20:00 100.0 81 21 134/88 97 Room Air 11/21/16 16:10 97.9 69 18 137/98 98 Room Air 11/21/16 16:00 72 Laboratory Tests 11/22/16 04:05: White Blood Count 5.2, Red Blood Count 3.93L, Hemoglobin 10.9L, Hematocrit 33.9L , Mean Corpuscular Volume 86, Mean Corpuscular Hemoglobin 27.7, Mean Corpuscular Hemoglobin Concent 32.1, Red Cell Distribution Width 14.0, Platelet Count 152, Mean Platelet Volume 11.5H, Neutrophils (%) (Auto) 60.5, Lymphocytes (%) (Auto) 17.6L, Monocytes (%) (Auto) 17.4H, Eosinophils (%) (Auto) 3.0, Basophils (%) (Auto) 1.6, Prothrombin Time 11.4, Prothromb Time International Ratio 1.1, Activated Partial Thromboplast Time 69H, Sodium Level 139, Potassium Level 3.3L, Chloride Level 102, Carbon Dioxide Level 23, Anion Gap 14, Blood Urea Nitrogen 8, Creatinine 1.2, Estimat Glomerular Filtration Rate > 60, Glucose Level 95, Calcium Level 8.6 11/22/16 10:10: Vancomycin Level Trough 23.0H Height (Feet): 5 Height (Inches): 7.00 Weight (Pounds): 160 General Appearance: lethargic EENT: normal ENT inspection Neck: normal alignment Cardiovascular: normal peripheral pulses, normal rate, regular rhythm Respiratory/Chest: chest wall non-tender, lungs clear, normal breath sounds Abdomen: normal bowel sounds, non tender, soft Extremities: normal inspection Edema: no edema noted Arm (L), no edema noted Arm (R), no edema noted Leg (L), no edema noted Leg (R), no edema noted Pedal (L), no edema noted Pedal (R), no edema noted Generalized Neurologic: responsive, motor weakness Skin: normal pigmentation, warm/dry DARRYL DAMON Nov 22, 2016 13:08
--- NOTE | 2016-11-22 14:54 | Infectious Diseases Prog Note ---
Assessment/Plan Problems: (1) Pneumonia Assessment & Plan: improving on cefepime and vancomycin, will treat for [address] chest confirmed RLL infiltrates , and PE, on full anticoagulation by hematology (2) Hemoptysis Assessment & Plan: due to massive PE, confirmed on CT chest , pulmonary is following (3) Chest pain Assessment & Plan: due to the above , rule out ACS, monitor trop, cardiology is following (4) Pulmonary embolism Assessment & Plan: on heparin drip, hematology and pulmonary is following (5) Aortic dissection Assessment & Plan: with thrombosis, and aneurysm, had vascular surgery eval , needs dopplers of the legs and carotid , with angiogram for possible surgical intervention . Subjective Constitutional: Reports: no symptoms HEENT: Reports: no symptoms Respiratory: Reports: productive cough Breasts: Reports: no symptoms Cardiovascular: Reports: no symptoms Gastrointestinal/Abdominal: Reports: no symptoms Genitourinary: Reports: no symptoms Neurologic: Reports: no symptoms Psychiatric: Reports: no symptoms Skin: Reports: no symptoms Endocrine: Reports: no symptoms Hematologic: Reports: no symptoms Musculoskeletal: Reports: no symptoms Allergies: Coded Allergies: NO KNOWN DRUG ALLERGIES (Unverified Allergy, Unknown, 10/15/13) Objective Vital Signs Last 24 Hour Vital Signs Date Time Temp Pulse Resp B/P (MAP) Pulse Ox O2 Delivery O2 Flow Rate FiO2 11/22/16 12:00 97.4 71 21 138/95 99 Room Air 11/22/16 12:00 65 11/22/16 08:00 97.4 71 21 116/77 95 Room Air 11/22/16 08:00 69 11/22/16 06:45 71 17 Room Air 11/22/16 04:00 69 11/22/16 04:00 98.1 80 20 122/80 99 Room Air 11/22/16 00:00 72 11/22/16 00:00 97.9 72 21 127/84 95 Room Air 21 11/22/16 00:00 97.9 72 21 95 Room Air 11/22/16 00:00 97.9 72 21 127/84 95 Room Air 11/21/16 20:03 67 18 Room Air 11/21/16 20:00 72 11/21/16 20:00 100.0 81 21 134/88 97 Room Air 11/21/16 16:10 97.9 69 18 137/98 98 Room Air 11/21/16 16:00 72 Height (Feet): 5 Height (Inches): 7.00 Weight (Pounds): 160 General Appearance: WD/WN, no acute distress HEENT: normocephalic, atraumatic, anicteric, mucous membranes moist Respiratory/Chest: chest wall non-tender, lungs clear, normal breath sounds, no respiratory distress, no accessory muscle use Cardiovascular: normal peripheral pulses, normal rate, regular rhythm, no gallop/murmur, no JVD Abdomen: normal bowel sounds, soft, non tender, no organomegaly, non distended , no mass, no scars Extremities: no cyanosis, no clubbing Skin: no rash, no lesions, no ulcers Neurologic/Psychiatric: alert, oriented x 3 Laboratory Tests Test 11/22/16 04:05 11/22/16 10:10 White Blood Count 5.2 K/UL (4.8-10.8) Red Blood Count 3.93 M/UL (4.70-6.10) L Hemoglobin 10.9 G/DL (14.2-18.0) L Hematocrit 33.9 % (42.0-52.0) L Mean Corpuscular Volume 86 FL (80-99) Mean Corpuscular Hemoglobin 27.7 PG (27.0-31.0) Mean Corpuscular Hemoglobin Concent 32.1 G/DL (32.0-36.0) Red Cell Distribution Width 14.0 % (11.6-14.8) Platelet Count 152 K/UL (150-450) Mean Platelet Volume 11.5 FL (6.5-10.1) H Neutrophils (%) (Auto) 60.5 % (45.0-75.0) Lymphocytes (%) (Auto) 17.6 % (20.0-45.0) L Monocytes (%) (Auto) 17.4 % (1.0-10.0) H Eosinophils (%) (Auto) 3.0 % (0.0-3.0) Basophils (%) (Auto) 1.6 % (0.0-2.0) Prothrombin Time 11.4 SEC (9.30-11.50) Prothromb Time International Ratio 1.1 (0.9-1.1) Activated Partial Thromboplast Time 69 SEC (23-33) H Sodium Level 139 mEQ/L (135-145) Potassium Level 3.3 mEQ/L (3.4-4.9) L Chloride Level 102 mEQ/L (98-107) Carbon Dioxide Level 23 mEQ/L (20-30) Anion Gap 14 (5-15) Blood Urea Nitrogen 8 mg/dL (7-23) Creatinine 1.2 mg/dL (0.7-1.2) Estimat Glomerular Filtration Rate > 60 mL/min (>60) Glucose Level 95 mg/dL (74-106) Calcium Level 8.6 mg/dL (8.6-10.2) Vancomycin Level Trough 23.0 ug/mL (5.0-12.0) H Current Medications Medications (Trade) Dose Ordered Sig/Ata Route PRN Reason Start Time Stop Time Status Last Admin Dose Admin Acetaminophen (Tylenol) 650 mg Q4H PRN ORAL FEVER 11/18/16 19:00 12/16/16 18:59 Albuterol/ Ipratropium (DuoNeb 0.5-3(2.5)mg/3ml) 3 ml Q4H PRN HHN Shortness of Breath 11/18/16 19:00 11/23/16 18:59 Cefepime HCl 2 gm/ Dextrose 110 ml @ 220 mls/hr Q12HR IV 11/18/16 21:00 11/23/16 10:29 11/22/16 08:59 Dextrose (Dextrose 50%) STAT PRN IV Hypoglycemia 11/18/16 19:00 12/18/16 18:59 Heparin Sodium/ Dextrose 500 ml @ 23.224 mls/ hr adjust per protocol IV 11/20/16 04:45 12/20/16 04:44 11/22/16 12:47 Lorazepam (Ativan 2mg/ml 1ml) 2 mg Q2H PRN IV For Anxiety 11/18/16 19:00 11/25/16 18:59 Morphine Sulfate (Morphine Sulfate) 4 mg Q4H PRN IVP Severe Pain (Pain Scale 7-10) 11/18/16 21:00 11/25/16 20:59 Ondansetron HCl (Zofran) 4 mg Q6H PRN IVP Nausea & Vomiting 11/18/16 19:00 12/16/16 18:59 Polyethylene Glycol (Miralax) 17 gm DAILYPRN PRN ORAL Constipation 11/18/16 19:00 12/18/16 18:59 Sodium Chloride 1,000 ml @ 50 mls/hr Q20H IV 11/18/16 19:00 12/16/16 09:59 11/21/16 20:24 Vancomycin HCl (Vanco rx to dose) 1 ea DAILY PRN MISC RX TO DOSE 11/18/16 19:00 12/18/16 18:59 Vancomycin HCl 500 mg/Dextrose 110 ml @ 110 mls/hr Q12HR@0600,1800 IVPB 11/23/16 06:00 11/28/16 05:59 Warfarin Sodium (Coumadin per pharmacy) 1 ea DAILY PRN MISC Per rx protocol 11/20/16 12:15 12/20/16 12:14 Warfarin Sodium (Coumadin) 7.5 mg COUMADIN ONCE ORAL 11/22/16 17:00 11/22/16 17:01 Herman Ta M.D. Nov 22, 2016 14:54
[2016-11-22] MEDS ORDERED: Warfarin Sodium 7.5mg ORAL ONE (17:00)
--- NOTE | 2016-11-22 22:23 | General Progress Note ---
Assessment/Plan Status: unchanged Assessment/Plan IMPRESSION: 1. Thrombocytopenia, multifactorial. --> Give plt transfusion if levels fall below 20k, currently WNL 2. Increased D-dimer, rule out deep venous thrombosis. 3. Hemoptysis, unknown origin. 4. Interstitial edema. 5. Pulmonary emboli. 6. Right lower lobe pneumonia. 7. Hemoptysis. 8. History of smoking. 9. Chronic obstructive pulmonary disease. 10. History of alcohol abuse. 11. Nicotine dependence. 12. Acute/chronic renal insufficiency. 13. Pleuritic chest pain. 14. Failure to thrive. RECOMMENDATIONS: 1. Packed red blood cell transfusion, p.r.n. based. 2. Platelet transfusion, p.r.n. based. 3. Watch count. 4. Watch coagulopathy. 5. Check tumor markers. 6. Venous Doppler of bilateral lower extremity to rule out deep venous thrombosis. 7. Pulmonary evaluation. 8. Antibiotic IV. 9. ID followup. 10. CT chest to rule out malignancy. 11. Skin care. 12. Nutrition. 13. Close followup. Subjective Date patient seen: Nov 22, 2016 Time patient seen: 06:00 Constitutional: Denies: no symptoms, chills, diaphoresis, fever, malaise, weakness, other HEENT: Denies: no symptoms, eye pain, blurred vision, tearing, double vision, ear pain, ear discharge, nose pain, nose congestion, throat pain, throat swelling, mouth pain, mouth swelling, other Cardiovascular: Denies: no symptoms, chest pain, edema, irregular heart rate, lightheadedness, palpitations, syncope, other Respiratory: Denies: no symptoms, cough, orthopnea, shortness of breath, SOB with excertion, SOB at rest, sputum, stridor, wheezing, other Gastrointestinal/Abdominal: Denies: no symptoms, abdomen distended, abdominal pain, black stools, tarry stools, blood in stool, constipated, diarrhea, difficulty swallowing, nausea, poor appetite, poor fluid intake, rectal bleeding , vomiting, other Genitourinary: Denies: no symptoms, burning, discharge, frequency, flank pain, hematuria, incontinence, pain, urgency, other Neurologic/Psychiatric: Denies: no symptoms, anxiety, depressed, emotional problems, headache, numbness, paresthesia, pre-existing deficit, seizure, tingling, tremors, weakness, other Hematologic/Lymphatic: Reports: anemia Allergies: Coded Allergies: NO KNOWN DRUG ALLERGIES (Unverified Allergy, Unknown, 10/15/13) Subjective Patient sleeping in bed. No acute distress. Afebrile. No active bleeding. Objective Last 24 Hour Vital Signs Date Time Temp Pulse Resp B/P (MAP) Pulse Ox O2 Delivery O2 Flow Rate FiO2 11/22/16 19:58 98.2 76 22 165/116 97 Room Air 11/22/16 19:45 74 18 Room Air 11/22/16 16:00 97.2 64 20 145/98 98 Room Air 11/22/16 16:00 71 11/22/16 12:00 97.4 71 21 138/95 99 Room Air 11/22/16 12:00 65 11/22/16 08:00 97.4 71 21 116/77 95 Room Air 11/22/16 08:00 69 11/22/16 06:45 71 17 Room Air 11/22/16 04:00 69 11/22/16 04:00 98.1 80 20 122/80 99 Room Air 11/22/16 00:00 72 11/22/16 00:00 97.9 72 21 127/84 95 Room Air 21 11/22/16 00:00 97.9 72 21 95 Room Air 11/22/16 00:00 97.9 72 21 127/84 95 Room Air Intake and Output 11/22/16 11/23/16 19:00 07:00 Intake Total 1542.240 ml Output Total 600 ml Balance 942.240 ml Intake Oral 500 ml IV Total 1042.240 ml Output Urine Total 600 ml Laboratory Tests 11/22/16 04:05: White Blood Count 5.2, Red Blood Count 3.93L, Hemoglobin 10.9L, Hematocrit 33.9L , Mean Corpuscular Volume 86, Mean Corpuscular Hemoglobin 27.7, Mean Corpuscular Hemoglobin Concent 32.1, Red Cell Distribution Width 14.0, Platelet Count 152, Mean Platelet Volume 11.5H, Neutrophils (%) (Auto) 60.5, Lymphocytes (%) (Auto) 17.6L, Monocytes (%) (Auto) 17.4H, Eosinophils (%) (Auto) 3.0, Basophils (%) (Auto) 1.6, Prothrombin Time 11.4, Prothromb Time International Ratio 1.1, Activated Partial Thromboplast Time 69H, Sodium Level 139, Potassium Level 3.3L, Chloride Level 102, Carbon Dioxide Level 23, Anion Gap 14, Blood Urea Nitrogen 8, Creatinine 1.2, Estimat Glomerular Filtration Rate > 60, Glucose Level 95, Calcium Level 8.6 11/22/16 10:10: Vancomycin Level Trough 23.0H Height (Feet): 5 Height (Inches): 7.00 Weight (Pounds): 160 General Appearance: no apparent distress Cardiovascular: normal rate, regular rhythm Respiratory/Chest: chest wall non-tender, lungs clear Abdomen: normal bowel sounds, non tender GAYLE VIZCARRA Nov 22, 2016 22:22
[2016-11-23 03:51] VITALS: BP 155/115
[2016-11-23 05:13] LABS: BASOPHILS % (AUTO) 2.3 % (0.0-2.0); EOSINOPHILS % (AUTO) 3.3 % (0.0-3.0); LYMPHOCYTES % (AUTO) 19.2 % (20.0-45.0); MEAN CORPUSCULAR HEMOGLOBIN 27.4 PG (27.0-31.0); MEAN CORPUSCULAR HGB CONC 31.1 G/DL (32.0-36.0); MEAN CORPUSCULAR VOLUME 88 FL (80-99); MEAN PLATELET VOLUME 13.4 FL (6.5-10.1); MONOCYTES % (AUTO) 14.6 % (1.0-10.0); NEUTROPHILS % (AUTO) 60.5 % (45.0-75.0); PLATELET COUNT 156 K/UL (150-450); RED BLOOD COUNT 4.25 M/UL (4.70-6.10); RED CELL DISTRIBUTION WIDTH 13.5 % (11.6-14.8); WHITE BLOOD COUNT 5.6 K/UL (4.8-10.8)
[2016-11-23] MEDS: Vancomycin 500mg/D5W 110ml IVPB SCH ×4 (05:28→17:08)
[2016-11-23 05:36] LABS: ANION GAP 15 (5-15); CALCIUM 9.1 mg/dL (8.6-10.2); CARBON DIOXIDE 24 mEQ/L (20-30); CHLORIDE 103 mEQ/L (98-107); CREATININE 1.2 mg/dL (0.7-1.2); GLOMERULAR FILTRATION RATE > 60 mL/min (>60); HEMOLYSIS 0; POTASSIUM 3.5 mEQ/L (3.4-4.9); SODIUM 142 mEQ/L (135-145)
[2016-11-23 06:10] LABS: INR 1.2 (0.9-1.1); PROTHROMBIN TIME 12.7 SEC (9.30-11.50)
[2016-11-23 08:00] VITALS: BP 138/96
--- NOTE | 2016-11-23 08:38 | General Progress Note ---
Assessment/Plan Problem List: (1) Pneumonia ICD Codes: J18.9 - Pneumonia, unspecified organism SNOMED: 150487860 (2) Hemoptysis ICD Codes: R04.2 - Hemoptysis SNOMED: 79442631 Status: stable, progressing, tolerating diet Assessment/Plan o2 pulm tx abx ot pt diet cbc bmp am dc plan pending therapeutic anticaog Subjective Constitutional: Reports: weakness Allergies: Coded Allergies: NO KNOWN DRUG ALLERGIES (Unverified Allergy, Unknown, 10/15/13) All Systems: reviewed and negative except above Subjective sleepy calm in bed Objective Last 24 Hour Vital Signs Date Time Temp Pulse Resp B/P (MAP) Pulse Ox O2 Delivery O2 Flow Rate FiO2 11/23/16 07:57 71 18 Room Air 11/23/16 04:00 70 11/23/16 03:51 98.4 76 22 155/115 96 Room Air 11/23/16 00:00 69 11/22/16 23:48 98.6 69 20 130/85 94 Room Air 11/22/16 20:00 70 11/22/16 19:58 98.2 76 22 165/116 97 Room Air 11/22/16 19:45 74 18 Room Air 11/22/16 16:00 97.2 64 20 145/98 98 Room Air 11/22/16 16:00 71 11/22/16 12:00 97.4 71 21 138/95 99 Room Air 11/22/16 12:00 65 Laboratory Tests 11/22/16 10:10: Vancomycin Level Trough 23.0H 11/23/16 04:05: White Blood Count 5.6, Red Blood Count 4.25L, Hemoglobin 11.7L, Hematocrit 37.5L , Mean Corpuscular Volume 88, Mean Corpuscular Hemoglobin 27.4, Mean Corpuscular Hemoglobin Concent 31.1L, Red Cell Distribution Width 13.5, Platelet Count 156, Mean Platelet Volume 13.4H, Neutrophils (%) (Auto) 60.5, Lymphocytes (%) (Auto) 19.2L, Monocytes (%) (Auto) 14.6H, Eosinophils (%) (Auto ) 3.3H, Basophils (%) (Auto) 2.3H, Prothrombin Time 12.7H, Prothromb Time International Ratio 1.2H, Activated Partial Thromboplast Time 77H, Sodium Level 142, Potassium Level 3.5, Chloride Level 103, Carbon Dioxide Level 24, Anion Gap 15, Blood Urea Nitrogen 9, Creatinine 1.2, Estimat Glomerular Filtration Rate > 60, Glucose Level 89, Calcium Level 9.1 Height (Feet): 5 Height (Inches): 7.00 Weight (Pounds): 160 General Appearance: lethargic EENT: normal ENT inspection Neck: normal alignment Cardiovascular: normal peripheral pulses, normal rate, regular rhythm Respiratory/Chest: chest wall non-tender, lungs clear, normal breath sounds Abdomen: normal bowel sounds, non tender, soft Extremities: normal inspection Edema: no edema noted Arm (L), no edema noted Arm (R), no edema noted Leg (L), no edema noted Leg (R), no edema noted Pedal (L), no edema noted Pedal (R), no edema noted Generalized Neurologic: motor weakness Skin: normal pigmentation, warm/dry DARRYL DAMON Nov 23, 2016 08:38
[2016-11-23] MEDS: Cefepime HCl 2 GM in D5W 110 ML IV SCH (08:45)
[2016-11-23] MEDS: Heparin 25,000u/D5W 500ml 500 ML IV SCH (10:41)
[2016-11-23 12:00] VITALS: BP 139/106
[2016-11-23 16:00] VITALS: BP 141/80
[2016-11-23] MEDS ORDERED: 1/2 NS 1000ml IV ONE (16:18)
[2016-11-23] MEDS ORDERED: NS 275ml ONE (16:18)
[2016-11-23] MEDS ORDERED: D5NS 1000ml IV ONE (16:18)
[2016-11-23] MEDS ORDERED: Tubing IV Secondary IV ONE (16:18)
[2016-11-23] MEDS ORDERED: Warfarin Sodium 7.5mg ORAL ONE (17:00)
[2016-11-23 20:00] VITALS: BP 145/110
--- NOTE | 2016-11-23 21:40 | General Progress Note ---
Assessment/Plan Status: stable Assessment/Plan IMPRESSION: 1. Thrombocytopenia, multifactorial. --> Give plt transfusion if levels fall below 20k, currently WNL 2. Increased D-dimer, rule out deep venous thrombosis. 3. Hemoptysis, unknown origin. 4. Interstitial edema. 5. Pulmonary emboli. 6. Right lower lobe pneumonia. 7. Hemoptysis. 8. History of smoking. 9. Chronic obstructive pulmonary disease. 10. History of alcohol abuse. 11. Nicotine dependence. 12. Acute/chronic renal insufficiency. 13. Pleuritic chest pain. 14. Failure to thrive. RECOMMENDATIONS: 1. Packed red blood cell transfusion, p.r.n. based. 2. Platelet transfusion, p.r.n. based. 3. Watch count. 4. Watch coagulopathy. 5. Check tumor markers. 6. Venous Doppler of bilateral lower extremity to rule out deep venous thrombosis. 7. Pulmonary evaluation. 8. Antibiotic IV. 9. ID followup. 10. CT chest to rule out malignancy. 11. Skin care. 12. Nutrition. 13. Close followup. Subjective Date patient seen: Nov 23, 2016 Time patient seen: 06:00 Allergies: Coded Allergies: NO KNOWN DRUG ALLERGIES (Unverified Allergy, Unknown, 10/15/13) Subjective Patient sleeping in bed. No acute distress. Afebrile. No active bleeding. Comfortable. Objective Last 24 Hour Vital Signs Date Time Temp Pulse Resp B/P (MAP) Pulse Ox O2 Delivery O2 Flow Rate FiO2 11/23/16 20:00 98.2 80 21 145/110 96 Room Air 11/23/16 19:48 65 20 Room Air 11/23/16 16:00 73 11/23/16 16:00 97.7 19 141/80 95 Room Air 11/23/16 12:00 98.2 77 22 139/106 95 Room Air 11/23/16 12:00 69 11/23/16 08:00 97.7 78 20 138/96 97 Room Air 11/23/16 08:00 81 11/23/16 07:57 71 18 Room Air 11/23/16 04:00 70 11/23/16 03:51 98.4 76 22 155/115 96 Room Air 11/23/16 00:00 69 11/22/16 23:48 98.6 69 20 130/85 94 Room Air Intake and Output 11/23/16 11/24/16 19:00 07:00 Intake Total 935.792 ml Output Total 600 ml Balance 335.792 ml Intake Oral 640 ml IV Total 295.792 ml Output Urine Total 600 ml Laboratory Tests 11/23/16 04:05: White Blood Count 5.6, Red Blood Count 4.25L, Hemoglobin 11.7L, Hematocrit 37.5L , Mean Corpuscular Volume 88, Mean Corpuscular Hemoglobin 27.4, Mean Corpuscular Hemoglobin Concent 31.1L, Red Cell Distribution Width 13.5, Platelet Count 156, Mean Platelet Volume 13.4H, Neutrophils (%) (Auto) 60.5, Lymphocytes (%) (Auto) 19.2L, Monocytes (%) (Auto) 14.6H, Eosinophils (%) (Auto ) 3.3H, Basophils (%) (Auto) 2.3H, Prothrombin Time 12.7H, Prothromb Time International Ratio 1.2H, Activated Partial Thromboplast Time 77H, Sodium Level 142, Potassium Level 3.5, Chloride Level 103, Carbon Dioxide Level 24, Anion Gap 15, Blood Urea Nitrogen 9, Creatinine 1.2, Estimat Glomerular Filtration Rate > 60, Glucose Level 89, Calcium Level 9.1 Height (Feet): 5 Height (Inches): 7.00 Weight (Pounds): 160 General Appearance: no apparent distress Neck: supple Cardiovascular: normal rate, regular rhythm Respiratory/Chest: chest wall non-tender, lungs clear Abdomen: normal bowel sounds, non tender, soft Pelvis: no active bleeding GAYLE VIZCARRA Nov 23, 2016 21:40
[2016-11-24] VITALS: BP 141/100
[2016-11-24 04:00] VITALS: BP 149/106
[2016-11-24] MEDS: Vancomycin 500mg/D5W 110ml IVPB SCH ×2 (05:34)
[2016-11-24 06:31] LABS: INR 1.8 (0.9-1.1); PROTHROMBIN TIME 18.7 SEC (9.30-11.50)
[2016-11-24] MEDS ORDERED: Heparin 25,000u/D5W 500ml 500 ML IV SCH (06:45)
[2016-11-24] MEDS ORDERED: Heparin 5000 units/ml inj IV ONE (06:45)
[2016-11-24 08:00] VITALS: BP 157/102
--- NOTE | 2016-11-24 11:43 | Pulmonology Progress Note ---
Assessment/Plan Problems: (1) Pulmonary embolism (2) Pleuritic chest pain (3) Aortic dissection Assessment/Plan add clonidine .1 prn on heparin and coumadin check INR daily dc when Inr between 2 and 3 Subjective ROS Limited/Unobtainable: No Constitutional: Reports: no symptoms HEENT: Repors: no symptoms Respiratory: Reports: no symptoms Cardiovascular: Reports: no symptoms Gastrointestinal/Abdominal: Reports: no symptoms Allergies: Coded Allergies: NO KNOWN DRUG ALLERGIES (Unverified Allergy, Unknown, 10/15/13) Objective Last 24 Hour Vital Signs Date Time Temp Pulse Resp B/P (MAP) Pulse Ox O2 Delivery O2 Flow Rate FiO2 11/24/16 08:00 98.1 79 21 157/102 94 Room Air 11/24/16 08:00 88 11/24/16 04:00 98.2 68 22 149/106 97 Room Air 11/24/16 04:00 68 11/24/16 00:00 71 11/24/16 00:00 97.5 71 23 141/100 96 Room Air 11/23/16 20:00 78 11/23/16 20:00 98.2 80 21 145/110 96 Room Air 11/23/16 19:48 65 20 Room Air 11/23/16 16:00 73 11/23/16 16:00 97.7 19 141/80 95 Room Air 11/23/16 12:00 98.2 77 22 139/106 95 Room Air 11/23/16 12:00 69 Objective right chest pain better, no more hemoptysis General Appearance: WD/WN HEENT: normocephalic, atraumatic Respiratory/Chest: chest wall non-tender, lungs clear Cardiovascular: normal peripheral pulses, normal rate Abdomen: normal bowel sounds, no organomegaly Genitourinary: normal external genitalia Extremities: no cyanosis 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, no motor/sensory deficits Lymphatic: no neck adenopathy Musculoskeletal: no effusion Laboratory Tests 11/24/16 05:50: Prothrombin Time 18.7H, Prothromb Time International Ratio 1.8H, Activated Partial Thromboplast Time 48H Current Medications Medications (Trade) Dose Ordered Sig/Ata Route PRN Reason Start Time Stop Time Status Last Admin Dose Admin Acetaminophen (Tylenol) 650 mg Q4H PRN ORAL FEVER 11/18/16 19:00 12/16/16 18:59 Dextrose (Dextrose 50%) STAT PRN IV Hypoglycemia 11/18/16 19:00 12/18/16 18:59 Heparin Sodium/ Dextrose 500 ml @ 29.03 mls/ hr adjust per protocol IV 11/24/16 06:45 12/24/16 06:44 11/24/16 06:49 Lorazepam (Ativan 2mg/ml 1ml) 2 mg Q2H PRN IV For Anxiety 11/18/16 19:00 11/25/16 18:59 Morphine Sulfate (Morphine Sulfate) 4 mg Q4H PRN IVP Severe Pain (Pain Scale 7-10) 11/18/16 21:00 11/25/16 20:59 Ondansetron HCl (Zofran) 4 mg Q6H PRN IVP Nausea & Vomiting 11/18/16 19:00 12/16/16 18:59 Polyethylene Glycol (Miralax) 17 gm DAILYPRN PRN ORAL Constipation 11/18/16 19:00 12/18/16 18:59 Sodium Chloride 1,000 ml @ 50 mls/hr Q20H IV 11/18/16 19:00 12/16/16 09:59 11/23/16 18:24 Vancomycin HCl (Vanco rx to dose) 1 ea DAILY PRN MISC RX TO DOSE 11/18/16 19:00 12/18/16 18:59 Vancomycin HCl 500 mg/Dextrose 110 ml @ 110 mls/hr Q12HR@0600,1800 IVPB 11/23/16 06:00 11/28/16 05:59 11/24/16 05:34 Warfarin Sodium (Coumadin per pharmacy) 1 ea DAILY PRN MISC Per rx protocol 11/20/16 12:15 12/20/16 12:14 Warfarin Sodium (Coumadin) 5 mg COUMADIN ONCE ORAL 11/24/16 17:00 11/24/16 17:01 VERONICA CHEUNG Nov 24, 2016 11:43
[2016-11-24 12:00] VITALS: BP 144/109
--- NOTE | 2016-11-24 14:46 | Infectious Diseases Prog Note ---
Assessment/Plan Problems: (1) Pneumonia Assessment & Plan: improved on cefepime and vancomycin, already received for 7 days , will D/C antibiotics today . CT chest confirmed RLL infiltrates , and PE , on full anticoagulation by hematology , watch out for bleeding (2) Hemoptysis Assessment & Plan: due to massive PE, confirmed on CT chest , watch for recurrence since he is fully anticoagulated , pulmonary is following (3) Chest pain Assessment & Plan: due to the above , rule out ACS, monitor trop, cardiology is following (4) Pulmonary embolism Assessment & Plan: on heparin drip and coumadin orally , hematology and pulmonary is following, watch out for recurrent bleeding (5) Aortic dissection Assessment & Plan: with thrombosis, and aneurysm, had vascular surgery eval , needs angiogram for further evaluation and for possible surgical intervention . Subjective Constitutional: Reports: no symptoms HEENT: Reports: no symptoms Respiratory: Reports: no symptoms Breasts: Reports: no symptoms Cardiovascular: Reports: no symptoms Gastrointestinal/Abdominal: Reports: no symptoms Genitourinary: Reports: no symptoms Neurologic: Reports: no symptoms Psychiatric: Reports: no symptoms Skin: Reports: no symptoms Allergies: Coded Allergies: NO KNOWN DRUG ALLERGIES (Unverified Allergy, Unknown, 10/15/13) Objective Vital Signs Last 24 Hour Vital Signs Date Time Temp Pulse Resp B/P (MAP) Pulse Ox O2 Delivery O2 Flow Rate FiO2 11/24/16 12:00 98.1 65 20 144/109 96 Room Air 11/24/16 12:00 73 11/24/16 08:00 98.1 79 21 157/102 94 Room Air 11/24/16 08:00 88 11/24/16 04:00 98.2 68 22 149/106 97 Room Air 11/24/16 04:00 68 11/24/16 00:00 71 11/24/16 00:00 97.5 71 23 141/100 96 Room Air 11/23/16 20:00 78 11/23/16 20:00 98.2 80 21 145/110 96 Room Air 11/23/16 19:48 65 20 Room Air 11/23/16 16:00 73 11/23/16 16:00 97.7 19 141/80 95 Room Air Height (Feet): 5 Height (Inches): 7.00 Weight (Pounds): 160 General Appearance: WD/WN, no acute distress HEENT: normocephalic, atraumatic, anicteric, mucous membranes moist Respiratory/Chest: chest wall non-tender, normal breath sounds, no respiratory distress, decreased breath sounds Cardiovascular: normal peripheral pulses, normal rate, regular rhythm, no gallop/murmur Abdomen: normal bowel sounds, soft, non tender, no organomegaly, non distended , no mass Extremities: no cyanosis, no clubbing Skin: no rash, no lesions Laboratory Tests Test 11/24/16 05:50 11/24/16 13:35 Prothrombin Time 18.7 SEC (9.30-11.50) H Prothromb Time International Ratio 1.8 (0.9-1.1) H Activated Partial Thromboplast Time 48 SEC (23-33) H > 150 SEC (23-33) *H Current Medications Medications (Trade) Dose Ordered Sig/Ata Route PRN Reason Start Time Stop Time Status Last Admin Dose Admin Acetaminophen (Tylenol) 650 mg Q4H PRN ORAL FEVER 11/18/16 19:00 12/16/16 18:59 Clonidine HCl (Catapres) 0.1 mg Q4H PRN ORAL SBP > 160 11/24/16 12:00 12/24/16 11:59 Dextrose (Dextrose 50%) STAT PRN IV Hypoglycemia 11/18/16 19:00 12/18/16 18:59 Heparin Sodium/ Dextrose 500 ml @ 23.224 mls/ hr adjust per protocol IV 11/24/16 15:30 12/24/16 15:29 Lorazepam (Ativan 2mg/ml 1ml) 2 mg Q2H PRN IV For Anxiety 11/18/16 19:00 11/25/16 18:59 Morphine Sulfate (Morphine Sulfate) 4 mg Q4H PRN IVP Severe Pain (Pain Scale 7-10) 11/18/16 21:00 11/25/16 20:59 Ondansetron HCl (Zofran) 4 mg Q6H PRN IVP Nausea & Vomiting 11/18/16 19:00 12/16/16 18:59 Polyethylene Glycol (Miralax) 17 gm DAILYPRN PRN ORAL Constipation 11/18/16 19:00 12/18/16 18:59 Sodium Chloride 1,000 ml @ 50 mls/hr Q20H IV 11/18/16 19:00 12/16/16 09:59 11/23/16 18:24 Warfarin Sodium (Coumadin per pharmacy) 1 ea DAILY PRN MISC Per rx protocol 11/20/16 12:15 12/20/16 12:14 Warfarin Sodium (Coumadin) 5 mg COUMADIN ONCE ORAL 11/24/16 17:00 11/24/16 17:01 Herman Ta M.D. Nov 24, 2016 14:46
--- NOTE | 2016-11-24 15:25 | General Progress Note ---
Assessment/Plan Status: unchanged Assessment/Plan IMPRESSION: 1. Thrombocytopenia, multifactorial. --> Give plt transfusion if levels fall below 20k, currently WNL 2. Increased D-dimer, rule out deep venous thrombosis. 3. Hemoptysis, unknown origin. 4. Interstitial edema. 5. Pulmonary emboli. 6. Right lower lobe pneumonia. 7. Hemoptysis. 8. History of smoking. 9. Chronic obstructive pulmonary disease. 10. History of alcohol abuse. 11. Nicotine dependence. 12. Acute/chronic renal insufficiency. 13. Pleuritic chest pain. 14. Failure to thrive. RECOMMENDATIONS: 1. Packed red blood cell transfusion, p.r.n. based. 2. Platelet transfusion, p.r.n. based. 3. Watch count. 4. Watch coagulopathy. 5. Check tumor markers. 6. Venous Doppler of bilateral lower extremity to rule out deep venous thrombosis. 7. Pulmonary evaluation. 8. Antibiotic IV. 9. ID followup. 10. CT chest to rule out malignancy. 11. Skin care. 12. Nutrition. 13. Close followup. Subjective Date patient seen: Nov 24, 2016 Time patient seen: 06:00 Allergies: Coded Allergies: NO KNOWN DRUG ALLERGIES (Unverified Allergy, Unknown, 10/15/13) Subjective Patient sleeping in bed. No acute distress. Afebrile. No active bleeding. Comfortable. Vitals are stable Objective Last 24 Hour Vital Signs Date Time Temp Pulse Resp B/P (MAP) Pulse Ox O2 Delivery O2 Flow Rate FiO2 11/24/16 12:00 98.1 65 20 144/109 96 Room Air 11/24/16 12:00 73 11/24/16 08:00 98.1 79 21 157/102 94 Room Air 11/24/16 08:00 88 11/24/16 04:00 98.2 68 22 149/106 97 Room Air 11/24/16 04:00 68 11/24/16 00:00 71 11/24/16 00:00 97.5 71 23 141/100 96 Room Air 11/23/16 20:00 78 11/23/16 20:00 98.2 80 21 145/110 96 Room Air 11/23/16 19:48 65 20 Room Air 11/23/16 16:00 73 11/23/16 16:00 97.7 19 141/80 95 Room Air Laboratory Tests 11/24/16 05:50: Prothrombin Time 18.7H, Prothromb Time International Ratio 1.8H, Activated Partial Thromboplast Time 48H 11/24/16 13:35: Activated Partial Thromboplast Time > 150*H Height (Feet): 5 Height (Inches): 7.00 Weight (Pounds): 160 General Appearance: WD/WN Cardiovascular: normal peripheral pulses, normal rate Respiratory/Chest: chest wall non-tender, lungs clear Abdomen: normal bowel sounds, non tender 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
[2016-11-24] MEDS ORDERED: NS 275ml ONE (15:33)
[2016-11-24 16:00] VITALS: BP 143/108
[2016-11-24] MEDS ORDERED: Warfarin Sodium 5mg ORAL ONE (17:00)
[2016-11-24 20:00] VITALS: BP_SYST 153; BP_SYST 197; BP_DIAS 113; BP_DIAS 118
[2016-11-24] MEDS ORDERED: Promethazine/Codeine 5ml UD ORAL PRN (21:00)
[2016-11-24] MEDS: Heparin 25,000u/D5W 500ml 500 ML IV SCH (22:48)
[2016-11-25] VITALS: BP 126/58
[2016-11-25 04:00] VITALS: BP 131/78
[2016-11-25 04:47] LABS: INR 2.1 (0.9-1.1); PROTHROMBIN TIME 22.2 SEC (9.30-11.50)
[2016-11-25] MEDS: Heparin 25,000u/D5W 500ml 500 ML IV SCH (05:31)
[2016-11-25 08:00] VITALS: BP 136/99
[2016-11-25 12:00] VITALS: BP_SYST 124; BP_SYST 127; BP_DIAS 106; BP_DIAS 74
--- NOTE | 2016-11-25 12:25 | General Progress Note ---
Assessment/Plan Problem List: (1) Pneumonia ICD Codes: J18.9 - Pneumonia, unspecified organism SNOMED: 477003560 (2) Hemoptysis ICD Codes: R04.2 - Hemoptysis SNOMED: 69045935 (3) Chest pain ICD Codes: R07.9 - Chest pain, unspecified SNOMED: 14448344 Qualifiers: Qualified Codes: R07.9 - Chest pain, unspecified (4) Pleuritic chest pain ICD Codes: R07.81 - Pleurodynia SNOMED: 8278564 Status: progressing Assessment/Plan afebrile pna sepsis abx per id vitals stable no change covering for dr dain mullins Subjective ROS Limited/Unobtainable: Yes Allergies: Coded Allergies: NO KNOWN DRUG ALLERGIES (Unverified Allergy, Unknown, 10/15/13) Objective Last 24 Hour Vital Signs Date Time Temp Pulse Resp B/P (MAP) Pulse Ox O2 Delivery O2 Flow Rate FiO2 11/25/16 08:00 97.7 80 20 136/99 92 Room Air 11/25/16 08:00 86 11/25/16 04:00 97.9 72 20 131/78 90 Room Air 11/25/16 04:00 76 11/25/16 00:00 67 11/25/16 00:00 98.1 88 20 126/58 85 Room Air 11/24/16 20:00 97.9 75 23 153/113 95 Room Air 21 11/24/16 20:00 97.9 75 23 197/118 95 Room Air 11/24/16 20:00 82 11/24/16 16:00 98.2 74 20 143/108 96 Room Air 11/24/16 16:00 73 Laboratory Tests 11/24/16 13:35: Activated Partial Thromboplast Time > 150*H 11/24/16 21:30: Activated Partial Thromboplast Time 90H 11/25/16 03:50: Activated Partial Thromboplast Time 91H, Prothrombin Time 22.2H, Prothromb Time International Ratio 2.1H Height (Feet): 5 Height (Inches): 7.00 Weight (Pounds): 160 EENT: PERRL/EOMI Neck: supple Respiratory/Chest: lungs clear Abdomen: soft Abhishek Jones MD Nov 25, 2016 12:25
--- NOTE | 2016-11-25 12:45 | Pulmonology Progress Note ---
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, not ready to quit yet DVT prophylaxis PT/OT pain management creat w/out significant changes, likely CRI monitor renal parameters, lytes, avoid nephrotoxics patient needs to be set by dc business continuity planner with Coumadin clinic and fup with vascular [place] ( provide number and locations) in order for patient to make appointment dc plan for am case discussed and evaluated by supervising physician Subjective Allergies: Coded Allergies: NO KNOWN DRUG ALLERGIES (Unverified Allergy, Unknown, 10/15/13) Subjective INR-2.1 today no fevers, no leukocytosis denies chest pain, SOB, cough, no further episodes of hemoptysis Objective Last 24 Hour Vital Signs Date Time Temp Pulse Resp B/P (MAP) Pulse Ox O2 Delivery O2 Flow Rate FiO2 11/25/16 12:00 97.8 73 20 127/106 97 Room Air 11/25/16 08:00 97.7 80 20 136/99 92 Room Air 11/25/16 08:00 86 11/25/16 04:00 97.9 72 20 131/78 90 Room Air 11/25/16 04:00 76 11/25/16 00:00 67 11/25/16 00:00 98.1 88 20 126/58 85 Room Air 11/24/16 20:00 97.9 75 23 153/113 95 Room Air 21 11/24/16 20:00 97.9 75 23 197/118 95 Room Air 11/24/16 20:00 82 11/24/16 16:00 98.2 74 20 143/108 96 Room Air 11/24/16 16:00 73 Objective General Appearance: no apparent distress, alert - A/A/O x 4 Lines, tubes and drains: peripheral HEENT: normocephalic, atraumatic, anicteric, mucous membranes moist, PERRL Neck: normal alignment, supple Respiratory/Chest: lungs clear - with moderate air exchange Cardiovascular/Chest: normal rate, regular rhythm, no JVD Abdomen: non tender, soft Extremities: normal range of motion, non-tender, no calf tenderness, normal capillary refill Skin Exam: warm/dry Neurologic: no motor/sensory deficits, alert, oriented x 3, normal mood/affect Musculoskeletal: normal muscle bulk Laboratory Tests 11/24/16 13:35: Activated Partial Thromboplast Time > 150*H 11/24/16 21:30: Activated Partial Thromboplast Time 90H 11/25/16 03:50: Activated Partial Thromboplast Time 91H, Prothrombin Time 22.2H, Prothromb Time International Ratio 2.1H Current Medications Medications (Trade) Dose Ordered Sig/Ata Route PRN Reason Start Time Stop Time Status Last Admin Dose Admin Acetaminophen (Tylenol) 650 mg Q4H PRN ORAL FEVER 11/18/16 19:00 12/16/16 18:59 Clonidine HCl (Catapres) 0.1 mg Q4H PRN ORAL SBP > 160 11/24/16 12:00 12/24/16 11:59 Dextrose (Dextrose 50%) STAT PRN IV Hypoglycemia 11/18/16 19:00 12/18/16 18:59 Lorazepam (Ativan 2mg/ml 1ml) 2 mg Q2H PRN IV For Anxiety 11/18/16 19:00 11/25/16 18:59 Morphine Sulfate (Morphine Sulfate) 4 mg Q4H PRN IVP Severe Pain (Pain Scale 7-10) 11/18/16 21:00 11/25/16 20:59 Ondansetron HCl (Zofran) 4 mg Q6H PRN IVP Nausea & Vomiting 11/18/16 19:00 12/16/16 18:59 Polyethylene Glycol (Miralax) 17 gm DAILYPRN PRN ORAL Constipation 11/18/16 19:00 12/18/16 18:59 Promethazine HCl/ Codeine (Phenergan with Codeine) 5 ml Q4H PRN ORAL For Cough 11/24/16 21:00 12/24/16 20:59 11/24/16 22:51 Sodium Chloride 1,000 ml @ 50 mls/hr Q20H IV 11/18/16 19:00 12/16/16 09:59 11/25/16 11:22 Warfarin Sodium (Coumadin per pharmacy) 1 ea DAILY PRN MISC Per rx protocol 11/20/16 12:15 12/20/16 12:14 Warfarin Sodium (Coumadin) 6 mg COUMADIN ONCE ORAL 11/25/16 17:00 11/25/16 17:01 Brett Rodriguezlatoya)Constance NP Nov 25, 2016 12:45
[2016-11-25 16:00] VITALS: BP 137/74
--- NOTE | 2016-11-25 16:28 | Infectious Diseases Prog Note ---
Assessment/Plan Problems: (1) Pneumonia Assessment & Plan: improved on cefepime and vancomycin, already received for 7 days , will D/C antibiotics today . CT chest confirmed RLL infiltrates , and PE , on full anticoagulation by hematology , watch out for bleeding (2) Hemoptysis Assessment & Plan: due to massive PE, confirmed on CT chest , watch for recurrence since he is fully anticoagulated , pulmonary is following (3) Chest pain Assessment & Plan: due to the above , rule out ACS, monitor trop, cardiology is following (4) Pulmonary embolism Assessment & Plan: on heparin drip and coumadin orally , hematology and pulmonary is following, watch out for recurrent bleeding (5) Aortic dissection Assessment & Plan: with thrombosis, and aneurysm, had vascular surgery eval , needs angiogram for further evaluation and for possible surgical intervention . Subjective Constitutional: Reports: no symptoms HEENT: Reports: no symptoms Respiratory: Reports: no symptoms Breasts: Reports: no symptoms Cardiovascular: Reports: no symptoms Gastrointestinal/Abdominal: Reports: no symptoms Genitourinary: Reports: no symptoms Neurologic: Reports: no symptoms Allergies: Coded Allergies: NO KNOWN DRUG ALLERGIES (Unverified Allergy, Unknown, 10/15/13) Objective Vital Signs Last 24 Hour Vital Signs Date Time Temp Pulse Resp B/P (MAP) Pulse Ox O2 Delivery O2 Flow Rate FiO2 11/25/16 16:00 97.0 80 20 137/74 98 Room Air 11/25/16 12:00 97.8 73 20 127/106 97 Room Air 11/25/16 12:00 69 11/25/16 08:00 97.7 80 20 136/99 92 Room Air 11/25/16 08:00 86 11/25/16 04:00 97.9 72 20 131/78 90 Room Air 11/25/16 04:00 76 11/25/16 00:00 67 11/25/16 00:00 98.1 88 20 126/58 85 Room Air 11/24/16 20:00 97.9 75 23 153/113 95 Room Air 21 11/24/16 20:00 97.9 75 23 197/118 95 Room Air 11/24/16 20:00 82 Height (Feet): 5 Height (Inches): 7.00 Weight (Pounds): 160 General Appearance: WD/WN, no acute distress HEENT: normocephalic, atraumatic, anicteric, mucous membranes moist Respiratory/Chest: chest wall non-tender, lungs clear, normal breath sounds, no respiratory distress, no accessory muscle use Cardiovascular: normal peripheral pulses, normal rate, regular rhythm, no gallop/murmur, no JVD Abdomen: normal bowel sounds, soft, non tender, no organomegaly, non distended , no mass Extremities: no cyanosis, no clubbing Skin: no rash, no lesions Laboratory Tests Test 11/24/16 21:30 11/25/16 03:50 Activated Partial Thromboplast Time 90 SEC (23-33) H 91 SEC (23-33) H Prothrombin Time 22.2 SEC (9.30-11.50) H Prothromb Time International Ratio 2.1 (0.9-1.1) H Current Medications Medications (Trade) Dose Ordered Sig/Ata Route PRN Reason Start Time Stop Time Status Last Admin Dose Admin Acetaminophen (Tylenol) 650 mg Q4H PRN ORAL FEVER 11/18/16 19:00 12/16/16 18:59 Clonidine HCl (Catapres) 0.1 mg Q4H PRN ORAL SBP > 160 11/24/16 12:00 12/24/16 11:59 Dextrose (Dextrose 50%) STAT PRN IV Hypoglycemia 11/18/16 19:00 12/18/16 18:59 Lorazepam (Ativan 2mg/ml 1ml) 2 mg Q2H PRN IV For Anxiety 11/18/16 19:00 11/25/16 18:59 Morphine Sulfate (Morphine Sulfate) 4 mg Q4H PRN IVP Severe Pain (Pain Scale 7-10) 11/18/16 21:00 11/25/16 20:59 Ondansetron HCl (Zofran) 4 mg Q6H PRN IVP Nausea & Vomiting 11/18/16 19:00 12/16/16 18:59 Polyethylene Glycol (Miralax) 17 gm DAILYPRN PRN ORAL Constipation 11/18/16 19:00 12/18/16 18:59 Promethazine HCl/ Codeine (Phenergan with Codeine) 5 ml Q4H PRN ORAL For Cough 11/24/16 21:00 12/24/16 20:59 11/24/16 22:51 Sodium Chloride 1,000 ml @ 50 mls/hr Q20H IV 11/18/16 19:00 12/16/16 09:59 11/25/16 11:22 Warfarin Sodium (Coumadin per pharmacy) 1 ea DAILY PRN MISC Per rx protocol 11/20/16 12:15 12/20/16 12:14 Warfarin Sodium (Coumadin) 6 mg COUMADIN ONCE ORAL 11/25/16 17:00 11/25/16 17:01 Herman Ta M.D. Nov 25, 2016 16:28
[2016-11-25] MEDS ORDERED: Warfarin Sodium 3mg ORAL ONE (17:00)
[2016-11-25] MEDS ORDERED: 1/2 NS 1000ml IV ONE (19:54)
[2016-11-25 20:00] VITALS: BP 138/106
[2016-11-26] VITALS: BP 155/105
[2016-11-26 04:00] VITALS: BP 151/107
[2016-11-26 05:27] LABS: INR 2.3 (0.9-1.1); PROTHROMBIN TIME 24.8 SEC (9.30-11.50)
[2016-11-26 07:56] VITALS: BP 168/123
--- NOTE | 2016-11-26 10:24 | General Progress Note ---
Assessment/Plan Assessment/Plan IMPRESSION and RECS: # Pulmonary embolism --> pt is on coumadin, INR goal between 2-3 # Thrombocytopenia, multifactorial. 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 # Interstitial edema. # Right lower lobe pneumonia. # History of smoking. # Chronic obstructive pulmonary disease. # History of alcohol abuse. Subjective Date patient seen: Nov 25, 2016 Constitutional: Reports: no symptoms HEENT: Reports: no symptoms Cardiovascular: Reports: no symptoms Respiratory: Reports: no symptoms Gastrointestinal/Abdominal: Reports: no symptoms Genitourinary: Reports: no symptoms Neurologic/Psychiatric: Reports: no symptoms Endocrine: Reports: no symptoms Hematologic/Lymphatic: Reports: no symptoms Allergies: Coded Allergies: NO KNOWN DRUG ALLERGIES (Unverified Allergy, Unknown, 10/15/13) Subjective afebrile Objective Last 24 Hour Vital Signs Date Time Temp Pulse Resp B/P (MAP) Pulse Ox O2 Delivery O2 Flow Rate FiO2 11/26/16 08:08 168/123 11/26/16 08:00 111 11/26/16 07:56 98.8 77 20 168/123 92 Room Air 11/26/16 04:00 74 11/26/16 04:00 97.5 80 20 151/107 94 Room Air 11/26/16 00:00 97.0 84 18 155/105 98 Room Air 11/26/16 00:00 73 11/25/16 20:00 97.9 72 18 138/106 98 Room Air 11/25/16 20:00 74 11/25/16 16:00 97.0 80 20 137/74 98 Room Air 11/25/16 16:00 81 11/25/16 12:00 97.8 73 20 127/106 97 Room Air 11/25/16 12:00 69 Intake and Output 11/26/16 11/27/16 19:00 07:00 Intake Total 240 ml Output Total 200 ml Balance 40 ml Intake Oral 240 ml Output Urine Total 200 ml Laboratory Tests 11/26/16 04:15: Prothrombin Time 24.8H, Prothromb Time International Ratio 2.3H, Activated Partial Thromboplast Time 43H Height (Feet): 5 Height (Inches): 7.00 Weight (Pounds): 160 General Appearance: no apparent distress EENT: normal ENT inspection Neck: normal alignment Cardiovascular: normal rate Abdomen: non tender Edema: no edema noted Pedal (L), no edema noted 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
[2016-11-26 11:23] VITALS: BP 133/88
--- NOTE | 2016-11-26 13:14 | General Progress Note ---
Assessment/Plan Problem List: (1) Pneumonia ICD Codes: J18.9 - Pneumonia, unspecified organism SNOMED: 418212181 (2) Hemoptysis ICD Codes: R04.2 - Hemoptysis SNOMED: 93246339 Status: stable, progressing, tolerating diet Assessment/Plan o2 pulm tx abx ot pt diet cbc bmp am dc plan Subjective Constitutional: Reports: weakness Allergies: Coded Allergies: NO KNOWN DRUG ALLERGIES (Unverified Allergy, Unknown, 10/15/13) All Systems: reviewed and negative except above Subjective sleepy calm in bed Objective Last 24 Hour Vital Signs Date Time Temp Pulse Resp B/P (MAP) Pulse Ox O2 Delivery O2 Flow Rate FiO2 11/26/16 12:00 74 11/26/16 11:23 97.7 65 20 133/88 93 Room Air 11/26/16 08:08 168/123 11/26/16 08:00 111 11/26/16 07:56 98.8 77 20 168/123 92 Room Air 11/26/16 04:00 74 11/26/16 04:00 97.5 80 20 151/107 94 Room Air 11/26/16 00:00 97.0 84 18 155/105 98 Room Air 11/26/16 00:00 73 11/25/16 20:00 97.9 72 18 138/106 98 Room Air 11/25/16 20:00 74 11/25/16 16:00 97.0 80 20 137/74 98 Room Air 11/25/16 16:00 81 Intake and Output 11/26/16 11/27/16 19:00 07:00 Intake Total 680 ml Output Total 500 ml Balance 180 ml Intake Oral 480 ml IV Total 200 ml Output Urine Total 500 ml Laboratory Tests 11/26/16 04:15: Prothrombin Time 24.8H, Prothromb Time International Ratio 2.3H, Activated Partial Thromboplast Time 43H Height (Feet): 5 Height (Inches): 7.00 Weight (Pounds): 160 General Appearance: lethargic EENT: normal ENT inspection Neck: normal alignment Cardiovascular: normal peripheral pulses, normal rate, regular rhythm Respiratory/Chest: chest wall non-tender, lungs clear, normal breath sounds Abdomen: normal bowel sounds, non tender, soft Extremities: normal inspection Edema: no edema noted Arm (L), no edema noted Arm (R), no edema noted Leg (L), no edema noted Leg (R), no edema noted Pedal (L), no edema noted Pedal (R), no edema noted Generalized Neurologic: responsive, motor weakness Skin: normal pigmentation, warm/dry DARRYL DAMON Nov 26, 2016 13:14
[2016-11-26] MEDS ORDERED: COUMADIN6 MG ORAL (14:07)
[2016-11-26] MEDS ORDERED: 1/2 NS 1000ml IV ONE (14:37)
[2016-11-26] MEDS ORDERED: Warfarin Sodium 3mg ORAL ONE (17:00)
--- NOTE | 2016-11-27 11:32 | General Progress Note ---
Assessment/Plan Assessment/Plan IMPRESSION and RECS: # Pulmonary embolism --> pt is on coumadin, INR goal between 2-3 --> will continue as outpatient # Thrombocytopenia, multifactorial. 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 # Interstitial edema. # Right lower lobe pneumonia. # History of smoking. # Chronic obstructive pulmonary disease. # History of alcohol abuse. Subjective Date patient seen: Nov 26, 2016 Constitutional: Reports: no symptoms HEENT: Reports: no symptoms Cardiovascular: Reports: no symptoms Respiratory: Reports: no symptoms Gastrointestinal/Abdominal: Reports: no symptoms Genitourinary: Reports: no symptoms Neurologic/Psychiatric: Reports: no symptoms Endocrine: Reports: no symptoms Hematologic/Lymphatic: Reports: no symptoms Allergies: Coded Allergies: NO KNOWN DRUG ALLERGIES (Unverified Allergy, Unknown, 10/15/13) Subjective clear for dc Objective Last 24 Hour Vital Signs Date Time Temp Pulse Resp B/P (MAP) Pulse Ox O2 Delivery O2 Flow Rate FiO2 11/26/16 12:00 74 Height (Feet): 5 Height (Inches): 7.00 Weight (Pounds): 160 General Appearance: no apparent distress EENT: normal ENT inspection Neck: normal alignment Cardiovascular: normal peripheral pulses Respiratory/Chest: normal breath sounds Abdomen: normal bowel sounds Neurologic: no motor/sensory deficits Kendell Johns Nov 27, 2016 11:32
--- NOTE | 2016-11-29 19:35 | Discharge Summary ---
Discharge Summary Hospital Course Date of Admission Nov 16, 2016 at 07:25 Date of Discharge Nov 26, 2016 at 14:38 Admitting Diagnosis Pneumonia, Hemoptysis. HPI Graham Beard is a 66 year old male who was admitted on Nov 16, 2016 at 07:25 for Pneumonia,Hemoptysis Hospital Course [id number] Discharge Discharge Disposition Patient was discharged to Home (01) Discharge Diagnoses: Zoë Baer NP Nov 29, 2016 19:35
--- NOTE | 2016-11-30 05:45 | Discharge Summary 2 SIG ---
DATE OF ADMISSION: 11/16/2016 DATE OF DISCHARGE: 11/26/2016 CONSULTANTS: 1. Herman Ta M.D. 2. Kvng Gonzalez M.D. 3. Kendell Johns M.D. 4. Gumaro Mccormack M.D. 5. Jayesh Koch M.D. BRIEF HOSPITAL COURSE: The patient is a 66-year-old male, who is a current smoker, who smokes one pack a day, presented to ED complaining of right-sided chest pain. Pain was located laterally and sometimes radiates to the back, worse with deep inspiration. He admits to having dry cough with blood-tinged sputum. He had similar episode a year ago and was told secondary to pneumonia. Workup in ED showed no leukocytosis. BUN was 8, creatinine 1.4. Chest x-ray showed cardiomegaly with interstitial edema, possible right lower lung infiltrate. The patient was initially admitted to medical floor for evaluation of chest pain and hemoptysis. He had a recent venous duplex scan that was negative for DVT. Chest CTA was positive for pulmonary emboli and the patient was started on heparin drip. He was started empirically on cefepime and vancomycin and had workup for occult malignancy. Echocardiogram done showed ejection fraction of 50% to 55%. He had abdominal and pelvic CTA that showed abdominal aortic dissection and a 60% right renal artery stenosis due to dissection extending along the posterior orifice. Dr. Mccormack was consulted. The patient was assessed to have multiple vascular occlusive lesions. Vascular exam was notable for absent pedal pulses, but no evidence of ulcer or gangrene. Abdomen was soft, nontender, and nondistended. The patient appeared asymptomatic. An arterial scan of bilateral arms was done. Right upper extremity was compatible with [id number] ischemia. Left upper extremity had normal inflow. Arterial scan of lower extremities showed critical ischemia on the right leg. Left leg waveform was abnormal suggestive of aortoiliac arterial occlusive disease. The patient will eventually need formal angiogram and it can be done as outpatient to further assess lower extremity arterial occlusive disease and offer options for potential revascularization. He was recommended to continue with anticoagulation and continue with antiplatelet and statins. He received seven days of cefepime and vancomycin. Hemoptysis was attributed due to massive PE as confirmed on CT. The patient needs to be fully anticoagulated. INR was therapeutic. The patient was eventually discharged home to follow up in [facility] as outpatient. FINAL DIAGNOSES: 1. Acute pulmonary embolism. 2. Aortic dissection. 3. Pneumonia. 4. Hemoptysis. 5. Thrombocytopenia. 6. Nicotine dependence. 7. Acute on chronic kidney injury. 8. Pleuritic chest pain. 9. Severe artery stenosis. 10. Chronic aortic dissection. 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 12. Severe vascular disease. DISPOSITION: The patient was discharged home. DISCHARGE MEDICATIONS: Refer to medication list. FOLLOWUP: The patient was advised to follow up with [facility] for Coumadin dosing and INR check. Advised to follow up with Vascular Surgery for workup. Stressed the need to continue antiplatelet, statin, and anticoagulation. Carlos Chase D.O. I have been assigned to dictate discharge summary on this account and I was not involved in the patient's management. Zoë Baer N.P. DR: Christine JOB#: [id number] CC: [email or web address]
== END 2016-11-26 14:38 | disposition home or self-care (01) | DRG 134 ==
LOC: EMR 05:02 → 4E 07:25 → EDBEDREQ 07:46 → 2W 11-17 18:00 → 2E 11-18 18:37
DX: I26.99 Other pulmonary embolism without acute cor pulmonale (principal); I71.02 Dissection of abdominal aorta; J18.9 Pneumonia, unspecified organism; N17.9 Acute kidney failure, unspecified; D69.6 Thrombocytopenia, unspecified; R04.2 Hemoptysis; F17.200 Nicotine dependence, unspecified, uncomplicated; N18.9 Chronic kidney disease, unspecified; J44.9 Chronic obstructive pulmonary disease, unspecified; R62.7 Adult failure to thrive; I77.89 Other specified disorders of arteries and arterioles; F10.21 Alcohol dependence, in remission; R07.81 Pleurodynia; I77.1 Stricture of artery
CPT/HCPCS: 36415; 71010; 71275; 74175; 76775; 78579; 78580; 80048; 80053; 80069; 80202; 81001; 82140; 82248; 82378; 82550; 82553; 83605; 83735; 84100; 84133; 84153; 84154; 84300; 84484; 84550; 85025; 85379; 85610; 85730; 86301; 86703; 87040; 89050; 93005; 93306; 93880; 93925; 93930; 93970; 94664; 99285; A9503; J2405